=== PATIENT | male | born 1995 | race Caucasian/White ===

== ENCOUNTER 2016-04-14 17:30 | Inpatient (IN) | payer OTHER ==
[2016-04-14] VITALS (7 sets, daily range): BP systolic 150–169; BP diastolic 78–98; PULSE 53–87; RESP 16–26; TEMP 98.6; O2SAT 95–100
[~2016-04-14] VITALS: Ht 180.3 cm; Wt 95.9 kg
[2016-04-14] MEDS ORDERED: ONDANSETRON HCL 4 MG/2 ML VIAL IV PUSH ONE (17:45)
[2016-04-14] MEDS ORDERED: TETANUS/DIPHTHERIA TOXOID ADULT 0.5 ML VIAL IM ONE (17:45)
[2016-04-14] MEDS ORDERED: SODIUM CHLOR 0.9% 1000 ML INJ 1,000 ML IV SCH (17:45)
[2016-04-14] MEDS ORDERED: MORPHINE SULFATE 4 MG/ML INJ IV PUSH ONE (17:45)
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
[2016-04-14 17:55] LABS: AUTOMATED NEUTROPHIL # 9.8 TH/MM3 (1.8-7.7); BASOPHIL # 0.1 TH/MM3 (0-0.2); BASOPHIL % 0.8 % (0.0-2.0); EOSINOPHIL # 0.6 TH/MM3 (0-0.4); EOSINOPHIL % 3.3 % (0.0-4.0); LYMPH % 34.4 % (9.0-44.0); LYMPHOCYTE # 6.2 TH/MM3 (1.0-4.8); MEAN CELL VOLUME 87.9 FL (80.0-100.0); MEAN CORPUSCULAR HEMOGLOBIN 30.4 PG (27.0-34.0); MEAN CORPUSCULAR HGB CONC 34.5 % (32.0-36.0); MONO % 6.9 % (0.0-8.0); NEUT % 54.6 % (16.0-70.0); PLATELET COUNT 484 TH/MM3 (150-450); RED BLOOD COUNT 4.77 MIL/MM3 (4.50-5.90); RED CELL DISTRIBUTION WIDTH 13.8 % (11.6-17.2); WHITE BLOOD COUNT 17.9 TH/MM3 (4.0-11.0)
[2016-04-14 17:59] LABS: HEMO FLAGS AUTO DIFF
[2016-04-14 18:05] LABS: APTT (PATIENT) 22.6 SEC (24.3-30.1); INTERNATIONAL NORMALIZED RATIO 0.9 RATIO
[2016-04-14 18:13] LABS: BANDS 1 % (0-6); EOSINOPHILS 3 % (0-4); NEUTROPHIL # MANUAL DIFF 9.5 TH/MM3 (1.8-7.7); POLYS (SEG NEUTROPHILS) 52 % (16-70); WBC DIFF SAMPLE 100
[2016-04-14 18:14] LABS: ALKALINE PHOSPHATASE 104 U/L (45-117); ALT (GPT) 84 U/L (12-78); ANION GAP 14 MEQ/L (5-15); AST (GOT) 58 U/L (15-37); BICARBONATE 21.3 MEQ/L (21.0-32.0); BLOOD UREA NITROGEN 11 MG/DL (7-18); CHLORIDE 106 MEQ/L (98-107); GLOMERULAR FILTRATION RATE 89 ML/MIN (>89); PLATELET ESTIMATE SMEAR HIGH (NORMAL); PLATELET MORPHOLOGY NORMAL (NORMAL); POTASSIUM 3.1 MEQ/L (3.5-5.1); SCAN/DIFF FINAL DIFF MANUAL; SODIUM (NA) 141 MEQ/L (136-145); TOTAL BILIRUBIN ADULT 0.5 MG/DL (0.2-1.0)
[2016-04-14] MEDS ORDERED: POTASSIUM CHLOR 20 MEQ PREMIX 100 ML IV ONE (18:30)
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
[2016-04-14] MEDS ORDERED: LIDOCAINE 1%/EPINEPHrine 1:100,000 SOLN 20 ML VIAL INFIL ONE (20:00)
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
[2016-04-14] MEDS ORDERED: IOHEXOL 350 MG/ML 10 ML VIAL (for RAD DIAG) IV ONE (20:06)
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
[2016-04-14 20:20] LABS: BLOOD, URINE NEG (NEG); COMMENT (UR) CULT NOT INDICATED; CULTURE IF INDICATED CULT NOT INDICATED; GLUCOSE,URINE NEG (NEG); KETONE, URINE TRACE mg/dL (NEG); MUCUS URINE FEW /lpf (OCC); NITRITE,URINE NEG (NEG); URINE COLOR LIGHT-YELLOW (YELLW/STRAW)
--- NOTE | 2016-04-14 20:28 | PD ---
Physical Exam Time Seen by Provider: 20:00 Narrative I was asked by Dr. Storm to repair a laceration on this patient. Please see his note for further details. Data Data Last Documented VS Vital Signs Date Time Temp Pulse Resp B/P Pulse Ox O2 Delivery O2 Flow Rate FiO2 04/14/16 19:59 72 22 150/78 98 Nasal Cannula 2 04/14/16 17:35 98.6 Orders Complete Blood Count With Diff (04/14/16 17:38) Comprehensive Metabolic Panel (04/14/16 17:38) Prothrombin Time / Inr (Pt) (04/14/16 17:38) Act Partial Throm Time (Ptt) (04/14/16 17:38) Urinalysis - C+S If Indicated (04/14/16 17:38) Alcohol (Ethanol) (04/14/16 17:38) Drug Screen, Random Urine (04/14/16 17:38) Chest, Single Ap (04/14/16 17:38) Pelvis, Ap Only (Routine) (04/14/16 17:38) Iv Access Insert/Monitor (04/14/16 17:38) Ecg Monitoring (04/14/16 17:38) Oximetry (04/14/16 17:38) Ct Brain W/O Iv Contrast(Rout) (04/14/16 17:38) Ct Thorax/ Chest W Iv Contrast (04/14/16 17:38) Ct Abd/Pel W Iv Contrast(Rout) (04/14/16 17:38) Ct Cerv Spine W/O Contrast (04/14/16 17:38) Morphine Inj (Morphine Inj) (04/14/16 17:45) Ondansetron Inj (Zofran Inj) (04/14/16 17:45) Sodium Chlor 0.9% 1000 Ml Inj (Ns 1000 M (04/14/16 17:45) Tetanus/Diphtheria Tox Adult (Tetanus/Di (04/14/16 17:45) Ct Thor Spine W/O Contrast (04/14/16 18:10) Ct Lumb Spine W/O Contrast (04/14/16 18:10) Potassium Chlor 20 Meq Premix (Kcl 20 Me (04/14/16 18:30) Consult Neurosurgery (04/14/16 ) Lidocai-Epi 1%-1:100,000 Inj (Xylocaine- (04/14/16 20:00) Admit Order (Ed Use Only) (04/14/16 20:00) Labs Laboratory Tests Test 04/14/16 04/14/16 17:46 19:50 White Blood Count 17.9 TH/MM3 Red Blood Count 4.77 MIL/MM3 Hemoglobin 14.5 GM/DL Hematocrit 42.0 % Mean Corpuscular Volume 87.9 FL Mean Corpuscular Hemoglobin 30.4 PG Mean Corpuscular Hemoglobin 34.5 % Concent Red Cell Distribution Width 13.8 % Platelet Count 484 TH/MM3 Mean Platelet Volume 7.7 FL Neutrophils (%) (Auto) 54.6 % Lymphocytes (%) (Auto) 34.4 % Monocytes (%) (Auto) 6.9 % Eosinophils (%) (Auto) 3.3 % Basophils (%) (Auto) 0.8 % Neutrophils # (Auto) 9.8 TH/MM3 Lymphocytes # (Auto) 6.2 TH/MM3 Monocytes # (Auto) 1.2 TH/MM3 Eosinophils # (Auto) 0.6 TH/MM3 Basophils # (Auto) 0.1 TH/MM3 CBC Comment AUTO DIFF Differential Total Cells 100 Counted Neutrophils % (Manual) 52 % Band Neutrophils % 1 % Lymphocytes % 38 % Monocytes % 6 % Eosinophils % 3 % Neutrophils # (Manual) 9.5 TH/MM3 Differential Comment FINAL DIFF MANUAL Platelet Estimate HIGH Platelet Morphology Comment NORMAL Red Cell Morphology Comment NORMAL Prothrombin Time 10.0 SEC Prothromb Time International 0.9 RATIO Ratio Activated Partial 22.6 SEC Thromboplast Time Sodium Level 141 MEQ/L Potassium Level 3.1 MEQ/L Chloride Level 106 MEQ/L Carbon Dioxide Level 21.3 MEQ/L Anion Gap 14 MEQ/L Blood Urea Nitrogen 11 MG/DL Creatinine 1.04 MG/DL Estimat Glomerular Filtration 89 ML/MIN Rate Random Glucose 147 MG/DL Calcium Level 7.9 MG/DL Total Bilirubin 0.5 MG/DL Aspartate Amino Transf 58 U/L (AST/SGOT) Alanine Aminotransferase 84 U/L (ALT/SGPT) Alkaline Phosphatase 104 U/L Total Protein 7.6 GM/DL Albumin 3.6 GM/DL Ethyl Alcohol Level 58 MG/DL Urine Color LIGHT-YELLOW Urine Turbidity CLEAR Urine pH 5.0 Urine Specific [place] 1.034 Urine Protein TRACE mg/dL Urine Glucose (UA) NEG mg/dL Urine Ketones TRACE mg/dL Urine Occult Blood NEG Urine Nitrite NEG Urine Bilirubin NEG Urine Urobilinogen LESS THAN 2.0 MG/DL Urine Leukocyte Esterase NEG Urine WBC 1 /hpf Urine Mucus FEW /lpf Microscopic Urinalysis Comment CULT NOT INDICATED MDM Medical Record Reviewed: Yes Supervised Visit with FLACO: Yes Procedures Procedure Narrative LACERATION LOCATION: Left scalp LENGTH: 3 cm NUMBER OF STITCHES/ASHLEIGH: 3 simple interrupted REPAIR: The area of the laceration was prepped with Betadine and sterilely draped. The laceration was infiltrated with 1% lidocaine with epinephrine. The wound was copiously irrigated and explored without evidence of foreign body , tendon injury or neurovascular injury. The wound was closed using 4-0 Prolene. This was a single layer repair. A sterile dressing was applied. The patient was advised to keep the dressing clean and dry. Patient tolerated the procedure well. Diagnosis Primary Impression: Intracranial hemorrhage Additional Impressions: Multiple abrasions Injury of thoracic spine Qualified Code: S24.109A - Injury of thoracic spine, initial encounter Skull fracture Qualified Code: S02.0XXB - Open fracture of parietal bone, initial encounter Scalp laceration Qualified Code: S01.01XA - Scalp laceration, initial encounter Scripts No Active Prescriptions or Reported Meds Michelle Winslow Apr 14, 2016 20:28
[2016-04-14] MEDS ORDERED: SODIUM CHLORIDE 0.9% FLUSH 5 ML FLUSH IVF PRN (20:30)
[2016-04-14] MEDS ORDERED: PROMETHAZINE INJ 25 MG/ML VIAL IM PRN (20:30)
[2016-04-14] MEDS ORDERED: ONDANSETRON HCL 4 MG/2 ML VIAL IV PRN ×2 (20:30→23:15)
[2016-04-14] MEDS ORDERED: NALOXONE HCL 0.4 MG/ML AMP IV PRN (20:30)
[2016-04-14] MEDS ORDERED: SODIUM CHLORIDE 23.4% INJ 188 MEQ in SODIUM CHLOR 0.9% 1000 ML INJ 1,000 ML IV SCH (20:30)
[2016-04-14] MEDS ORDERED: SODIUM CHLORIDE 0.9% FLUSH 5 ML FLUSH IVF SCH (21:00)
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
[2016-04-14] MEDS: DOCUSATE SODIUM 100 MG CAP PO SCH (21:29)
[2016-04-14] MEDS: MORPHINE SULFATE 4 MG/ML INJ IV PRN (21:54)
[2016-04-14] MEDS: NS + KCL 20 MEQ INJ 1,000 ML IV SCH (22:52)
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
[2016-04-14] MEDS ORDERED: CHLORHEXIDINE GLUCONATE 2 % 1 PACK (2 CLOTHS) TOP PRN (23:15)
[2016-04-14] MEDS ORDERED: RESP: ALBUTEROL 2.5 MG/3 ML NEB (PRN) INH (23:15)
[2016-04-14] MEDS ORDERED: SODIUM CHLORIDE 0.9% FLUSH 5 ML FLUSH IV FLUSH PRN (23:15)
[2016-04-14] MEDS ORDERED: MISCELLANEOUS NURSING INFORMATION XX SCH (23:15)
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
[2016-04-15] VITALS (14 sets, daily range): BP systolic 130–155; BP diastolic 64–92; PULSE 48–81; RESP 14–27; TEMP 97.5–98.4; O2SAT 93–99
[2016-04-15] MEDS ORDERED: MORPHINE SULFATE 4 MG/ML INJ IV PUSH ONE
[2016-04-15 00:17] LABS: AMPHETAMINE, URINE NEG (NEG); BARBITURATES, URINE NEG (NEG); COCAINE, URINE NEG (NEG)
--- NOTE | 2016-04-15 00:38 | PD.PROCEDR ---
Central Line Procedure DATE: 04/15/16 CENTRAL LINE PLACEMENT: Right internal jugular vein. Ultrasound-guided INDICATION: Central venous access CONSENT Informed consent for procedure was obtained from patient's father after discussion of risks, benefits, alternatives by me. Signed consent is on the chart DESCRIPTION OF THE PROCEDURE The patient was placed in supine position, Trendelenburg. The skin was cleansed with Chloraprep 4. Additional barrier precautions included large sterile drape, sterile gloves, sterile gown, face mask, and hat. 1 % lidocaine was used for local anesthesia. Under direct ultrasound guidance and on single attempt, the vein was accessed with an introducer needle. The guide wire was advanced and the tract was dilated. Using Seldinger technique a 7 [place] 20 cm antimicrobial coated triple-lumen catheter was advanced to a depth of 18 centimeters. The guide wire was removed. All ports had good return of dark venous blood and flushed easily with saline. The central line was secured with 2.0 silk. A sterile dressing with antibiotic disc was applied. ESTIMATED BLOOD LOSS: Minimal COMPLICATIONS: No apparent complications. STAT chest x-ray is pending Deb Oliver MD Apr 15, 2016 00:38
--- NOTE | 2016-04-15 01:06 | RADRPT ---
EXAM DATE/TIME: 04/15/2016 00:56 [facility] COMPARISON: CT THORAX W CONTRAST, April 14, 2016, 18:40. CHEST SINGLE AP, April 14, 2016, 18:02. INDICATIONS : Central line placement. MEDICAL HISTORY : Unobtainable. SURGICAL HISTORY : Unobtainable. ENCOUNTER: Subsequent ACUITY: 1 day PAIN SCORE: Non-responsive. LOCATION: Bilateral chest FINDINGS: A single view of the chest demonstrates the lungs to be symmetrically aerated without evidence of mas s, infiltrate or effusion. The cardiomediastinal contours are unremarkable. Osseous structures are intact. Right jugular line tip overlies the expected location of the SVC. CONCLUSION: Right jugular line is noted as above. The lungs are clear. Henrry Santos MD on April 15, 2016 at 1:04 Board Certified Radiologist. This report was verified electronically.
[2016-04-15] MEDS: MORPHINE SULFATE 4 MG/ML INJ IV PRN ×4 (03:41→20:14)
[2016-04-15 04:29] LABS: AUTOMATED NEUTROPHIL # 23.6 TH/MM3 (1.8-7.7); BASOPHIL % 0.1 % (0.0-2.0); HEMATOCRIT 40.1 % (39.0-51.0); HEMO FLAGS DIFF FINAL; LYMPH % 3.2 % (9.0-44.0); LYMPHOCYTE # 0.8 TH/MM3 (1.0-4.8); MONO % 4.9 % (0.0-8.0); NEUT % 91.8 % (16.0-70.0); PLATELET COUNT 399 TH/MM3 (150-450); RED BLOOD COUNT 4.55 MIL/MM3 (4.50-5.90); RED CELL DISTRIBUTION WIDTH 13.5 % (11.6-17.2); WHITE BLOOD COUNT 25.8 TH/MM3 (4.0-11.0)
[2016-04-15] MEDS ORDERED: ATROPINE SULFATE 1 MG/10 ML SYRINGE ONE (04:29)
[2016-04-15] MEDS ORDERED: LIDOCAINE HCL 2% 100 MG/5 ML SYRINGE ONE (04:29)
[2016-04-15] MEDS ORDERED: EPINEPHrine HCL (1:10,000) 1 MG/10 ML SYRINGE ONE (04:29)
[2016-04-15 04:30] LABS: APTT (PATIENT) 23.4 SEC (24.3-30.1); PROTHROMBIN TIME - PATIENT 10.5 SEC (9.8-11.6)
[2016-04-15 04:55] LABS: BICARBONATE 22.8 MEQ/L (21.0-32.0); POTASSIUM 3.9 MEQ/L (3.5-5.1)
--- NOTE | 2016-04-15 05:00 | RADRPT ---
EXAM DATE/TIME: 04/15/2016 04:35 [facility] COMPARISON: CT BRAIN W/O CONTRAST, April 14, 2016, 18:33. INDICATIONS : Follow up bleed. RADIATION DOSE: 65.84 CTDIvol (mGy) MEDICAL HISTORY : None SURGICAL HISTORY : None. ENCOUNTER: Subsequent ACUITY: 1 day PAIN SCALE: Non-responsive LOCATION: cranial TECHNIQUE: Multiple contiguous axial images were obtained of the head. Using automated exposure control and adj ustment of the mA and/or kV according to patient size, radiation dose was kept as low as reasonably a chievable to obtain optimal diagnostic quality images. FINDINGS: There is left laceration, hematoma and edema again seen. There is a right sided subdural hematoma star ng the right cerebral convexity and with parenchymal contusion seen in the right temporal lobe anteri gloria as before. There is effacement of the cortical sulci on the right convexity. There is mild right to left shift of 3.6 mm on axial image 16. Fluid levels in the sphenoid sinuses are noted. I do not see a fracture. CONCLUSION: 1. Right sided subdural hemorrhage with midline shift and sulcal effacement. 2. Right temporal hemorrhagic contusion. Henrry Santos MD on April 15, 2016 at 4:56 Board Certified Radiologist. This report was verified electronically.
[2016-04-15] MEDS: CHLORHEXIDINE GLUCONATE 2 % 1 PACK (2 CLOTHS) TOP SCH (05:24)
[2016-04-15] MEDS: 3% SALINE INJ 500 ML IV SCH ×2 (06:35→18:04)
[2016-04-15] MEDS: SODIUM CHLORIDE 0.9% FLUSH 5 ML FLUSH IV FLUSH SCH ×2 (09:00→21:00)
[2016-04-15] MEDS: NS + KCL 20 MEQ INJ 1,000 ML IV SCH ×2 (09:50→23:10)
[2016-04-15] MEDS: DOCUSATE SODIUM 100 MG CAP PO SCH ×2 (10:27→20:14)
[2016-04-15] MEDS: ACETAMINOPHEN/HYDROcodone 325 MG/5 MG TAB PO PRN ×2 (10:27→18:01)
[2016-04-15] MEDS: PANTOPRAZOLE SOD 40 MG DELAYED RELEASE TAB PO SCH (10:27)
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
[2016-04-16] VITALS (12 sets, daily range): BP systolic 139–160; BP diastolic 56–98; PULSE 48–85; RESP 17–24; TEMP 97.7–98.7; O2SAT 98–100
[2016-04-16] MEDS: ACETAMINOPHEN/HYDROcodone 325 MG/5 MG TAB PO PRN ×3 (01:36→20:31)
[2016-04-16 03:33] LABS: BASOPHIL # 0.1 TH/MM3 (0-0.2); BASOPHIL % 0.4 % (0.0-2.0); HEMATOCRIT 34.6 % (39.0-51.0); HEMO FLAGS DIFF FINAL; LYMPH % 7.7 % (9.0-44.0); LYMPHOCYTE # 1.5 TH/MM3 (1.0-4.8); MEAN CELL VOLUME 87.6 FL (80.0-100.0); MEAN CORPUSCULAR HEMOGLOBIN 30.1 PG (27.0-34.0); MEAN CORPUSCULAR HGB CONC 34.4 % (32.0-36.0); MONO % 7.2 % (0.0-8.0); NEUT % 84.7 % (16.0-70.0); PLATELET COUNT 307 TH/MM3 (150-450); RED BLOOD COUNT 3.96 MIL/MM3 (4.50-5.90); RED CELL DISTRIBUTION WIDTH 13.7 % (11.6-17.2); WHITE BLOOD COUNT 20.1 TH/MM3 (4.0-11.0)
[2016-04-16 03:53] LABS: ALT (GPT) 63 U/L (12-78); ANION GAP 7 MEQ/L (5-15); AST (GOT) 48 U/L (15-37); BICARBONATE 25.7 MEQ/L (21.0-32.0); BLOOD UREA NITROGEN 5 MG/DL (7-18); CHLORIDE 105 MEQ/L (98-107); GLOMERULAR FILTRATION RATE 161 ML/MIN (>89); MAGNESIUM 2.1 MG/DL (1.5-2.5); POTASSIUM 3.8 MEQ/L (3.5-5.1); SODIUM (NA) 138 MEQ/L (136-145)
[2016-04-16 03:56] LABS: ALKALINE PHOSPHATASE 76 U/L (45-117); TOTAL BILIRUBIN ADULT 1.1 MG/DL (0.2-1.0)
[2016-04-16] MEDS: CHLORHEXIDINE GLUCONATE 2 % 1 PACK (2 CLOTHS) TOP SCH (04:00)
[2016-04-16] MEDS: PANTOPRAZOLE SOD 40 MG DELAYED RELEASE TAB PO SCH (08:12)
[2016-04-16] MEDS: DOCUSATE SODIUM 100 MG CAP PO SCH ×2 (08:12→20:31)
[2016-04-16] MEDS: 3% SALINE INJ 500 ML IV SCH ×2 (08:12→20:52)
[2016-04-16] MEDS: SODIUM CHLORIDE 0.9% FLUSH 5 ML FLUSH IV FLUSH SCH ×2 (08:13→20:31)
[2016-04-16] MEDS: NS + KCL 20 MEQ INJ 1,000 ML IV SCH (11:10)
[2016-04-16] MEDS: levETIRAcetam INJ 500 MG in SODIUM CHLORIDE 0.9% INJ 100 ML IV SCH ×2 (11:10→20:30)
[2016-04-16] MEDS: hydrALAZINE HCL 20 MG/ML VIAL IV PUSH PRN (18:21)
[2016-04-16] MEDS ORDERED: SODIUM CHLORIDE 23.4% INJ 240 MEQ in SYRINGE/BAG 1 EA IV ONE (19:00)
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
[2016-04-16] MEDS ORDERED: SODIUM CHLORIDE 23.4% INJ 240 MEQ in SYRINGE/BAG 1 EA IV PRN (19:30)
[2016-04-17] VITALS (12 sets, daily range): BP systolic 122–168; BP diastolic 74–93; PULSE 49–74; RESP 12–25; TEMP 97.8–98.9; O2SAT 96–100
[2016-04-17] MEDS: NS + KCL 20 MEQ INJ 1,000 ML IV SCH ×2 (01:44→21:57)
[2016-04-17] MEDS: ACETAMINOPHEN/HYDROcodone 325 MG/5 MG TAB PO PRN ×3 (01:44→12:12)
[2016-04-17] MEDS ORDERED: SODIUM CHLORIDE 23.4% INJ 188 MEQ in SODIUM CHLOR 0.9% 1000 ML INJ 1,000 ML IV SCH (03:15)
[2016-04-17] MEDS: CHLORHEXIDINE GLUCONATE 2 % 1 PACK (2 CLOTHS) TOP SCH (04:00)
--- NOTE | 2016-04-17 05:33 | RADRPT ---
EXAM DATE/TIME: 04/17/2016 05:04 [facility] COMPARISON: CT BRAIN W/O CONTRAST, April 15, 2016, 4:35. INDICATIONS : Evaluate intracranial hemorrhage RADIATION DOSE: 53.92 CTDIvol (mGy) MEDICAL HISTORY : None SURGICAL HISTORY : None. ENCOUNTER: Subsequent ACUITY: 4 - 6 days PAIN SCALE: 0/10 LOCATION: cranial TECHNIQUE: Multiple contiguous axial images were obtained of the head. Using automated exposure control and adj ustment of the mA and/or kV according to patient size, radiation dose was kept as low as reasonably a chievable to obtain optimal diagnostic quality images. FINDINGS: Left frontal scalp swelling and hematoma again seen. The right sided subdural hemorrhage is no signif icant change. Parenchymal hemorrhagic contusion in the right temporal lobe is noted with increase in surrounding edema on the current study. There is also hypo-density in the right parietal region with minimal adjacent parenchymal bleed of increased conspicuity today. There is mass effect on the right lateral ventricle, and shift from right to left of 5.5 mm on axial image 17. This is increased from p revious. There is effacement of the cortical sulci on the right, third ventricular effacement is seen . No fractures. CONCLUSION: Worsening edema and midline shift. Please see above. Henrry Santos MD on April 17, 2016 at 5:30 Board Certified Radiologist. This report was verified electronically.
[2016-04-17 05:43] LABS: HEMATOCRIT 34.6 % (39.0-51.0); MEAN CELL VOLUME 87.7 FL (80.0-100.0); MEAN CORPUSCULAR HGB CONC 35.4 % (32.0-36.0); PLATELET COUNT 358 TH/MM3 (150-450); RED BLOOD COUNT 3.95 MIL/MM3 (4.50-5.90); RED CELL DISTRIBUTION WIDTH 13.8 % (11.6-17.2); REVIEW FLAG FINAL; WHITE BLOOD COUNT 18.8 TH/MM3 (4.0-11.0)
[2016-04-17 06:10] LABS: BICARBONATE 24.2 MEQ/L (21.0-32.0); MAGNESIUM 2.5 MG/DL (1.5-2.5); POTASSIUM 3.6 MEQ/L (3.5-5.1)
[2016-04-17] MEDS: hydrALAZINE HCL 20 MG/ML VIAL IV PUSH PRN ×2 (07:00→12:12)
[2016-04-17] MEDS: PANTOPRAZOLE SOD 40 MG DELAYED RELEASE TAB PO SCH (07:49)
[2016-04-17] MEDS: DOCUSATE SODIUM 100 MG CAP PO SCH ×2 (07:49→21:13)
[2016-04-17] MEDS: SODIUM CHLORIDE 0.9% FLUSH 5 ML FLUSH IV FLUSH SCH ×2 (07:49→21:10)
[2016-04-17] MEDS: levETIRAcetam INJ 500 MG in SODIUM CHLORIDE 0.9% INJ 100 ML IV SCH ×2 (08:05→21:11)
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
[2016-04-17] MEDS: ACETAMINOPHEN 325 MG TAB PO PRN (21:11)
--- NOTE | 2016-04-17 21:45 | RADRPT ---
EXAM DATE/TIME: 04/17/2016 21:13 [facility] COMPARISON: CHEST SINGLE AP, April 15, 2016, 0:56. INDICATIONS : Left triple lumen placement. MEDICAL HISTORY : None. SURGICAL HISTORY : None. ENCOUNTER: Initial ACUITY: 3 days PAIN SCORE: Non-responsive. LOCATION: Bilateral chest FINDINGS: A single view of the chest demonstrates the lungs to be symmetrically aerated without evidence of mas s, infiltrate or effusion. The cardiomediastinal contours are unremarkable with left central line ti p in superior vena cava.. Osseous structures are intact. CONCLUSION: Left central line tip in superior vena cava. No focal infiltrate. No pneumothorax. Ayush Rivers MD on April 17, 2016 at 21:42 Board Certified Radiologist. This report was verified electronically.
[2016-04-17] MEDS: SODIUM CHLORIDE 23.4% INJ 240 MEQ in SYRINGE/BAG 1 EA IV SCH (21:56)
[2016-04-17] MEDS ORDERED: 3% SALINE INJ 500 ML IV SCH (22:15)
[2016-04-17] MEDS: FUROSEMIDE 20 MG/2 ML VIAL IV PUSH SCH (23:38)
[2016-04-17] MEDS: MANNITOL 12.5 GM/50 ML VIAL IV SCH (23:39)
[2016-04-18] VITALS (17 sets, daily range): BP systolic 135–184; BP diastolic 66–96; PULSE 64–106; RESP 12–18; TEMP 98.8–100.8; O2SAT 99–100
[2016-04-18 00:54] LABS: AUTOMATED NEUTROPHIL # 10.9 TH/MM3 (1.8-7.7); BASOPHIL # 0.1 TH/MM3 (0-0.2); BASOPHIL % 0.5 % (0.0-2.0); EOSINOPHIL % 0.1 % (0.0-4.0); HEMATOCRIT 34.8 % (39.0-51.0); HEMO FLAGS DIFF FINAL; LYMPH % 14.6 % (9.0-44.0); MEAN CELL VOLUME 86.9 FL (80.0-100.0); MEAN CORPUSCULAR HEMOGLOBIN 30.6 PG (27.0-34.0); MEAN CORPUSCULAR HGB CONC 35.2 % (32.0-36.0); MONO % 6.4 % (0.0-8.0); NEUT % 78.4 % (16.0-70.0); PLATELET COUNT 387 TH/MM3 (150-450); RED CELL DISTRIBUTION WIDTH 13.3 % (11.6-17.2); WHITE BLOOD COUNT 13.9 TH/MM3 (4.0-11.0)
[2016-04-18] MEDS ORDERED: LIDOCAINE HCL 2% 100 MG/5 ML SYRINGE ONE (00:55)
[2016-04-18] MEDS ORDERED: ATROPINE SULFATE 1 MG/10 ML SYRINGE ONE (00:55)
[2016-04-18] MEDS ORDERED: EPINEPHrine HCL (1:10,000) 1 MG/10 ML SYRINGE ONE (00:55)
[2016-04-18 01:02] LABS: BICARBONATE 25.2 MEQ/L (21.0-32.0); POTASSIUM 3.6 MEQ/L (3.5-5.1)
[2016-04-18] MEDS ORDERED: GENTAMICIN SULFATE 80 MG/2 ML VIAL ONE (01:03)
[2016-04-18] MEDS ORDERED: THROMBIN (TOPICAL) 5,000 UNIT VIAL ONE (01:03)
[2016-04-18] MEDS ORDERED: GELFOAM SIZE 100 ONE (01:03)
[2016-04-18] MEDS ORDERED: LIDOCAINE 1%/EPINEPHrine 1:100,000 SOLN 20 ML VIAL ONE (01:03)
[2016-04-18 01:04] LABS: PROTHROMBIN TIME - PATIENT 10.6 SEC (9.8-11.6)
[2016-04-18] MEDS ORDERED: fentaNYL CITRATE 250 MCG/5 ML AMP ONE ×2 (03:58→03:59)
[2016-04-18] MEDS ORDERED: PROPOFOL 1000 MG/100 ML INJ 100 ML IV SCH (04:00)
--- NOTE | 2016-04-18 04:01 | PD.OP ---
Operative Report Date of Surgery: Apr 18, 2016 Preoperative Diagnosis: (1) Acute subdural hematoma (2) TBI (traumatic brain injury) Postoperative Diagnosis: (1) Acute subdural hematoma (2) TBI (traumatic brain injury) Procedure: 1. Right frontotemporoparietal decompressive craniotomy, evacuation acute subdural hematoma 2. Right frontal ventriculostomy placement Anesthesia: Gen. endotracheal Surgeon: Darni Zamudio Compliance Administrator(s): Catrina Ingram Operation and Findings: Findings: Moderate diffuse right hemisphere subacute subdural hematoma. Moderate cerebral edema. Focal area of contusion right temporal lobe without active bleeding. The patient was brought into the operating room and general endotracheal anesthesia induced without difficulty. The Robles catheter, and sequential compression devices were in place. The lines were established per anesthesia. The patient was placed in semilateral position on the 3080 table with the head on the horseshoe headrest. All extremities were appropriately padded Appropriate timeout procedure was performed with all personnel present and in agreement The right side of the head was shaved with the clippers and sterilely prepped and draped 1% Xylocaine was used for local infiltration over the incision site which was made over the right frontotemporoparietal area in a curvilinear fashion and carried sharply down to the cranium through the temporalis muscle and fascia. The scalp and temporalis muscle flap were elevated in a single laye with the periosteal elevator and retracted r over a laparotomy sponge with the large scalp hooks. The field underwriter was used to place a single bur hole in the posterior left frontoparietal region and the craniotome was used since to incise the bone flap. The dura was moderately tense upon removal of the bone flap. The dura was opened in a cruciate fashion and the edges retracted with 4-0 Nurolon suture. The moderate underlying subdural hematoma was evacuated with gentle suction and irrigation until clear The bipolar forceps were used to control any bleeding at the operative site. There was evidence of persistent moderate cerebral edema and the brain was bulging slightly beyond the edge dura at the the craniotomy site. It was elected to leave the bone flap out and the dura opened to allow for cerebral edema. A 7 mm flat fluted drain was left in place in the subdural space The drain was brought out through incisions in the posterior parietal region and secured to the skin with nylon suture A small cortical incision was made with the bipolar approximately 10 cm above the supraorbital rim and 4 cm lateral to the midline at the right frontal region. The Codman ventricular catheter was placed to a depth of approximately 6 cm into the ventricle with good return of clear colorless cerebrospinal fluid. The catheter was tunneled to the left frontal region, secured to the skin with nylon suture. The closure was performed with 0 Vicryl for the temporalis muscle fascia and galeal closure and wang for the skin closure. A dressing of sterile Telfa, 4 x 4's, and a loose head stockinette was applied. The patient was taken to recovery room in stable condition All counts were correct at the end of the case. Estimated blood loss was 100 cc No specimen was sent to pathology Darin Zamudio MD Apr 18, 2016 04:01
[2016-04-18] MEDS: hydrALAZINE HCL 20 MG/ML VIAL IV PUSH PRN ×2 (04:15→14:48)
[2016-04-18] MEDS ORDERED: METOPROLOL TARTRATE 5 MG/5 ML VIAL ONE (04:37)
[2016-04-18] MEDS: ACETAMINOPHEN/HYDROcodone 325 MG/5 MG TAB PO PRN (04:54)
[2016-04-18 05:05] LABS: HEMATOCRIT 35.9 % (39.0-51.0); MEAN CORPUSCULAR HEMOGLOBIN 30.2 PG (27.0-34.0); MEAN CORPUSCULAR HGB CONC 34.3 % (32.0-36.0); PLATELET COUNT 397 TH/MM3 (150-450); RED BLOOD COUNT 4.09 MIL/MM3 (4.50-5.90); RED CELL DISTRIBUTION WIDTH 13.5 % (11.6-17.2); REVIEW FLAG FINAL; WHITE BLOOD COUNT 13.6 TH/MM3 (4.0-11.0)
[2016-04-18] MEDS ORDERED: 2% NS 1000 ML IV SCH ×2 (05:15)
[2016-04-18] MEDS: METOPROLOL TARTRATE 5 MG/5 ML VIAL IV PUSH SCH ×4 (05:17→23:37)
[2016-04-18] MEDS: CHLORHEXIDINE GLUCONATE 2 % 1 PACK (2 CLOTHS) TOP SCH (05:17)
[2016-04-18 05:18] LABS: BICARBONATE 24.6 MEQ/L (21.0-32.0); MAGNESIUM 2.3 MG/DL (1.5-2.5); POTASSIUM 3.3 MEQ/L (3.5-5.1)
[2016-04-18] MEDS: SODIUM CHLORIDE 23.4% INJ 240 MEQ in SYRINGE/BAG 1 EA IV SCH ×3 (05:19→16:00)
[2016-04-18 05:29] LABS: BLOOD GAS BASE EXCESS -0.3 mmol/L (-2-2); BLOOD GAS CARBOXYHEMOGLOBIN 0.9 % (0-4); BLOOD GAS HCO3 24 mmol/L (22-26); BLOOD GAS METHEMOGLOBIN 0.8 % (0-2); BLOOD GAS O2 HGB SATURATION 98 % (90-100); BLOOD GAS OXYGEN CONTENT 17.8 Vol % (12.0-20.0); BLOOD GAS PCO2 39 mmHg (38-42); BLOOD GAS PO2 411 mmHg (61-120); BLOOD GAS TOTAL HGB 12.1 G/DL (12.0-16.0); CRITICAL VALUE NO; OXYGEN DEVICE VENTILATOR; TEMP CORR TO 98.6
[2016-04-18 05:30] LABS: DRAW SITE ALINE; FIO2 90 %; STAT NO; VENT SETTINGS AC/12/600/PEEP5
[2016-04-18] MEDS: PROPOFOL 1000 MG/100 ML INJ 100 ML IV SCH ×7 (05:57→22:24)
[2016-04-18] MEDS: FUROSEMIDE 20 MG/2 ML VIAL IV PUSH SCH ×3 (06:00→17:40)
--- NOTE | 2016-04-18 06:20 | RADRPT ---
EXAM DATE/TIME: 04/18/2016 05:36 [facility] COMPARISON: CHEST SINGLE AP, April 17, 2016, 21:13. INDICATIONS : Post intubation MEDICAL HISTORY : None. SURGICAL HISTORY : None. ENCOUNTER: Initial ACUITY: 1 day PAIN SCORE: Non-responsive. LOCATION: Bilateral chest FINDINGS: Patchy left lower lobe airspace disease and cardiomegaly. Endotracheal tube, left subclavian line and NG tube are noted. The side-port of the NG tube is at the esophagogastric junction. It should be adv anced. CONCLUSION: Left lower lobe airspace disease. NG tube should be advanced. Henrry Santos MD on April 18, 2016 at 6:18 Board Certified Radiologist. This report was verified electronically.
[2016-04-18] MEDS: MANNITOL 12.5 GM/50 ML VIAL IV SCH ×3 (07:04→17:40)
[2016-04-18] MEDS: DOCUSATE SODIUM 100 MG CAP PO SCH ×2 (08:35→21:59)
[2016-04-18] MEDS: SODIUM CHLORIDE 0.9% FLUSH 5 ML FLUSH IVF SCH ×2 (08:35→20:11)
[2016-04-18] MEDS: levETIRAcetam INJ 500 MG in SODIUM CHLORIDE 0.9% INJ 100 ML IV SCH ×2 (08:35→20:11)
[2016-04-18] MEDS: PANTOPRAZOLE SOD 40 MG DELAYED RELEASE TAB PO SCH (08:35)
[2016-04-18] MEDS ORDERED: MAGNESIUM OXIDE 400 MG TAB PO PRN (10:30)
[2016-04-18] MEDS ORDERED: POTASSIUM PHOSPHATE MONOBASIC 500 MG TAB PO PRN (10:30)
[2016-04-18] MEDS ORDERED: POTASSIUM PHOSPHATE INJ 30 MMOL in SODIUM CHLOR 0.9% 250 ML INJ 250 ML IV PRN (10:30)
[2016-04-18] MEDS ORDERED: MAGNESIUM SULFATE INJ 2 GM in SODIUM CHLORIDE 0.9% INJ 96 ML IV PRN (10:30)
[2016-04-18] MEDS ORDERED: POTASSIUM CHLOR 20 MEQ PREMIX 100 ML IV PRN ×2 (10:30)
[2016-04-18] MEDS ORDERED: POTASSIUM CL 40 MEQ/30 ML LIQ UDC PO/TUBE PRN ×2 (10:30)
[2016-04-18] MEDS ORDERED: POTASSIUM PHOSPHATE MONOBASIC 500 MG TAB PO/TUBE PRN (10:30)
[2016-04-18] MEDS ORDERED: SODIUM PHOSPHATE INJ 30 MMOL in SODIUM CHLOR 0.9% 250 ML INJ 240 ML IV PRN (10:30)
[2016-04-18] MEDS ORDERED: MAGNESIUM SULFATE INJ 4 GM in SODIUM CHLORIDE 0.9% INJ 92 ML IV PRN (10:30)
[2016-04-18] MEDS: POTASSIUM CHLOR 40 MEQ PREMIX 100 ML IV PRN (11:31)
[2016-04-18] MEDS: PANTOPRAZOLE SODIUM 40 MG VIAL IV PUSH SCH (11:31)
[2016-04-18] MEDS ORDERED: PROPOFOL 200 MG/20 ML AMP IV ONE (12:00)
[2016-04-18] MEDS ORDERED: ceFAZolin INJ 1,000 MG VIAL IV ONE (12:00)
[2016-04-18] MEDS ORDERED: PHENYLEPH/NS 1000 MCG/10 ML SYR IV ONE (12:00)
[2016-04-18] MEDS ORDERED: LACTATED RINGER'S 1000 ML INJ 1,000 ML IV ONE (12:00)
[2016-04-18] MEDS: 3% SALINE INJ 500 ML IV SCH (15:33)
[2016-04-18 17:25] LABS: MAGNESIUM 2.5 MG/DL (1.5-2.5)
[2016-04-18] MEDS: fentaNYL DRIP 250 ML IV SCH (18:59)
[2016-04-18] MEDS: NS + KCL 20 MEQ INJ 1,000 ML IV SCH (18:59)
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
[2016-04-19] VITALS (20 sets, daily range): BP systolic 116–148; BP diastolic 63–78; PULSE 73–106; RESP 12–16; TEMP 98.4–100.4; O2SAT 98–100
[2016-04-19] MEDS: 3% SALINE INJ 500 ML IV SCH ×2 (01:40→16:16)
[2016-04-19] MEDS: PROPOFOL 1000 MG/100 ML INJ 100 ML IV SCH ×7 (01:43→21:58)
[2016-04-19] MEDS ORDERED: LIDOCAINE HCL 2% 100 MG/5 ML SYRINGE ONE (03:48)
[2016-04-19] MEDS ORDERED: ATROPINE SULFATE 1 MG/10 ML SYRINGE ONE (03:48)
[2016-04-19] MEDS ORDERED: EPINEPHrine HCL (1:10,000) 1 MG/10 ML SYRINGE ONE (03:48)
[2016-04-19] MEDS: METOPROLOL TARTRATE 5 MG/5 ML VIAL IV PUSH SCH ×4 (05:00→23:10)
[2016-04-19 05:29] LABS: BLOOD GAS BASE EXCESS -0.9 mmol/L (-2-2); BLOOD GAS HCO3 24 mmol/L (22-26); BLOOD GAS METHEMOGLOBIN 0.9 % (0-2); BLOOD GAS O2 HGB SATURATION 97 % (90-100); BLOOD GAS OXYGEN CONTENT 16.6 Vol % (12.0-20.0); BLOOD GAS PCO2 47 mmHg (38-42); BLOOD GAS PO2 119 mmHg (61-120); BLOOD GAS TOTAL HGB 12.1 G/DL (12.0-16.0); CRITICAL VALUE NO; DRAW SITE ART LINE; FIO2 35 %; OXYGEN DEVICE VENTILATOR; STAT NO; TEMP CORR TO 98.6; VENT SETTINGS AC 12/600/PEEP5
[2016-04-19] MEDS: CHLORHEXIDINE GLUCONATE 2 % 1 PACK (2 CLOTHS) TOP SCH (05:43)
[2016-04-19] MEDS: fentaNYL DRIP 250 ML IV SCH ×2 (05:43→15:21)
--- NOTE | 2016-04-19 06:04 | RADRPT ---
EXAM DATE/TIME: 04/19/2016 04:40 [facility] COMPARISON: CT BRAIN W/O CONTRAST, April 17, 2016, 5:04. INDICATIONS : Follow up right subdural hematoma. RADIATION DOSE: 60.50 CTDIvol (mGy) MEDICAL HISTORY : None SURGICAL HISTORY : None. ENCOUNTER: Initial ACUITY: 4 - 6 days PAIN SCALE: Non-responsive LOCATION: Right cranial TECHNIQUE: Multiple contiguous axial images were obtained of the head. Using automated exposure control and adj ustment of the mA and/or kV according to patient size, radiation dose was kept as low as reasonably a chievable to obtain optimal diagnostic quality images. FINDINGS: Interim right subdural evacuation with craniotomy defect. A ventriculostomy catheter is also been irving soila. There is swelling of the right cerebral hemisphere. Decreased midline shift, currently about 3 m m. No ventriculomegaly. Parenchymal hemorrhage of the right temporal lobe is similar to before. No mass lesion seen. No evidence of an acute ischemic event. CONCLUSION: 1. Interim right subdural drainage and ventriculostomy catheter placement. 2. Decreased leftward midline shift, currently about 3 mm. 3. No significant change of the small parenchymal contusion of the right temporal lobe. 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 MD on April 19, 2016 at 6:01 Board Certified Radiologist. This report was verified electronically.
--- NOTE | 2016-04-19 08:27 | RADRPT ---
EXAM DATE/TIME: 04/19/2016 05:21 [facility] COMPARISON: CHEST SINGLE AP, April 18, 2016, 5:36. INDICATIONS : Shortness of breath. MEDICAL HISTORY : None. SURGICAL HISTORY : None. ENCOUNTER: Subsequent ACUITY: 4 - 6 days PAIN SCORE: Non-responsive. LOCATION: Bilateral chest FINDINGS: Mild consolidation and small effusion again seen left lung base, not significantly changed. Right joel g remains reasonably clear. I don't see a pneumothorax on either side. Heart size stable, upper limits of normal. Endotracheal tube tip is about 3 cm above the da. There is a nasogastric tube with tip in the upp er stomach, sidehole near or slightly above the GE junction. Left subclavian central venous catheter remains in place, tip in the superior vena cava. CONCLUSION: No significant change. 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 MD on April 19, 2016 at 6:11 Board Certified Radiologist. This report was verified electronically.
[2016-04-19 08:54] LABS: HEMATOCRIT 33.7 % (39.0-51.0); MEAN CELL VOLUME 89.1 FL (80.0-100.0); MEAN CORPUSCULAR HEMOGLOBIN 30.4 PG (27.0-34.0); MEAN CORPUSCULAR HGB CONC 34.1 % (32.0-36.0); PLATELET COUNT 371 TH/MM3 (150-450); RED BLOOD COUNT 3.78 MIL/MM3 (4.50-5.90); RED CELL DISTRIBUTION WIDTH 14.1 % (11.6-17.2); REVIEW FLAG FINAL; WHITE BLOOD COUNT 12.2 TH/MM3 (4.0-11.0)
[2016-04-19] MEDS: SODIUM CHLORIDE 0.9% FLUSH 5 ML FLUSH IVF SCH ×2 (09:00→20:16)
[2016-04-19] MEDS: DOCUSATE SODIUM 100 MG CAP PO SCH ×2 (09:00→20:14)
[2016-04-19] MEDS: levETIRAcetam INJ 500 MG in SODIUM CHLORIDE 0.9% INJ 100 ML IV SCH ×2 (09:15→20:14)
[2016-04-19] MEDS: PANTOPRAZOLE SODIUM 40 MG VIAL IV PUSH SCH (09:15)
[2016-04-19 09:21] LABS: ALKALINE PHOSPHATASE 92 U/L (45-117); ALT (GPT) 83 U/L (12-78); ANION GAP 6 MEQ/L (5-15); AST (GOT) 26 U/L (15-37); BICARBONATE 26.6 MEQ/L (21.0-32.0); BLOOD UREA NITROGEN 9 MG/DL (7-18); CHLORIDE 117 MEQ/L (98-107); GLOMERULAR FILTRATION RATE 140 ML/MIN (>89); POTASSIUM 3.7 MEQ/L (3.5-5.1); SODIUM (NA) 150 MEQ/L (136-145); TOTAL BILIRUBIN ADULT 1.1 MG/DL (0.2-1.0)
[2016-04-19 10:45] LABS: MAGNESIUM 2.4 MG/DL (1.5-2.5)
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
[2016-04-19] MEDS: NS + KCL 20 MEQ INJ 1,000 ML IV SCH (16:49)
[2016-04-20] VITALS (18 sets, daily range): BP systolic 108–159; BP diastolic 55–86; PULSE 78–102; RESP 16; TEMP 98.3–100.1; O2SAT 98–100
[2016-04-20] MEDS: hydrALAZINE HCL 20 MG/ML VIAL IV PUSH PRN (00:57)
[2016-04-20] MEDS: fentaNYL DRIP 250 ML IV SCH ×2 (01:07→11:07)
[2016-04-20] MEDS: PROPOFOL 1000 MG/100 ML INJ 100 ML IV SCH ×9 (01:46→22:20)
[2016-04-20] MEDS ORDERED: MANNITOL 12.5 GM/50 ML VIAL IV ONE (02:45)
[2016-04-20 03:19] LABS: HEMATOCRIT 33.3 % (39.0-51.0); MEAN CELL VOLUME 88.8 FL (80.0-100.0); MEAN CORPUSCULAR HEMOGLOBIN 29.8 PG (27.0-34.0); MEAN CORPUSCULAR HGB CONC 33.5 % (32.0-36.0); PLATELET COUNT 396 TH/MM3 (150-450); RED BLOOD COUNT 3.74 MIL/MM3 (4.50-5.90); RED CELL DISTRIBUTION WIDTH 14.2 % (11.6-17.2); REVIEW FLAG FINAL; WHITE BLOOD COUNT 12.4 TH/MM3 (4.0-11.0)
[2016-04-20 03:32] LABS: BICARBONATE 26.2 MEQ/L (21.0-32.0); MAGNESIUM 2.1 MG/DL (1.5-2.5); POTASSIUM 3.4 MEQ/L (3.5-5.1)
[2016-04-20] MEDS: METOPROLOL TARTRATE 5 MG/5 ML VIAL IV PUSH SCH (04:46)
[2016-04-20] MEDS: CHLORHEXIDINE GLUCONATE 2 % 1 PACK (2 CLOTHS) TOP SCH ×2 (04:47→20:41)
--- NOTE | 2016-04-20 05:22 | RADRPT ---
EXAM DATE/TIME: 04/20/2016 04:45 [facility] COMPARISON: CHEST SINGLE AP, April 19, 2016, 5:21. INDICATIONS : Shortness of breath. MEDICAL HISTORY : None. SURGICAL HISTORY : None. ENCOUNTER: Subsequent ACUITY: 1 week PAIN SCORE: Non-responsive. LOCATION: Bilateral chest FINDINGS: Trace consolidation/effusion again seen left lung base, not significantly changed. Right lung remains reasonably clear. Heart size stable, upper limits of normal.Endotracheal tube tip is about 4 cm abov e the da. There is a nasogastric tube with tip in the stomach, sidehole near the GE junction. CONCLUSION: No significant change. 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 MD on April 20, 2016 at 5:20 Board Certified Radiologist. This report was verified electronically.
[2016-04-20] MEDS: 3% SALINE INJ 500 ML IV SCH ×2 (05:52→17:57)
[2016-04-20 05:54] LABS: BLOOD GAS BASE EXCESS -0.3 mmol/L (-2-2); BLOOD GAS HCO3 24 mmol/L (22-26); BLOOD GAS METHEMOGLOBIN 0.9 % (0-2); BLOOD GAS O2 HGB SATURATION 97 % (90-100); BLOOD GAS OXYGEN CONTENT 15.4 Vol % (12.0-20.0); BLOOD GAS PCO2 38 mmHg (38-42); BLOOD GAS PO2 137 mmHg (61-120); BLOOD GAS TOTAL HGB 11.1 G/DL (12.0-16.0); CRITICAL VALUE NO; FIO2 35 %; OXYGEN DEVICE VENTILATOR; TEMP CORR TO 98.6; VENT SETTINGS AC/16/600/PEEP 5
[2016-04-20 05:55] LABS: DRAW SITE RT RADIAL; NUMBER OF ARTERIAL PUNCTURES 1; STAT NO; ULNAR PULSE PRESENT
[2016-04-20] MEDS: MIDAZOLAM 100 MG/NS 100 ML DRIP Premix IV SCH (07:37)
[2016-04-20] MEDS ORDERED: RESP: ALBUTEROL 2.5 MG/IPRATROPIUM 0.5 MG NEB (PRN) NEB (09:45)
[2016-04-20] MEDS: PANTOPRAZOLE SODIUM 40 MG VIAL IV PUSH SCH (09:47)
[2016-04-20] MEDS: SODIUM CHLORIDE 0.9% FLUSH 5 ML FLUSH IVF SCH ×2 (09:48→20:41)
[2016-04-20] MEDS: levETIRAcetam INJ 500 MG in SODIUM CHLORIDE 0.9% INJ 100 ML IV SCH ×2 (09:48→20:40)
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
[2016-04-20] MEDS: LACTULOSE SYRUP 20 GM/30 ML CUP PO SCH (11:17)
[2016-04-20] MEDS: DOCUSATE SODIUM 50 MG/SENNA 8.6 MG TAB PO SCH ×2 (11:17→20:41)
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
[2016-04-20] MEDS ORDERED: PANTOPRAZOLE SODIUM 40 MG VIAL IV PUSH SCH (13:00)
[2016-04-20] MEDS: ENOXAPARIN SODIUM 40 MG/0.4 ML SYRINGE SQ SCH (14:54)
[2016-04-21] VITALS (21 sets, daily range): BP systolic 128–168; BP diastolic 61–86; PULSE 84–100; RESP 16–24; TEMP 98.8–100.4; O2SAT 97–100
[2016-04-21] MEDS: fentaNYL DRIP 250 ML IV SCH ×2 (01:30→18:05)
[2016-04-21] MEDS: PROPOFOL 1000 MG/100 ML INJ 100 ML IV SCH ×7 (01:57→21:14)
[2016-04-21 03:25] LABS: HEMATOCRIT 31.1 % (39.0-51.0); MEAN CELL VOLUME 89.3 FL (80.0-100.0); MEAN CORPUSCULAR HEMOGLOBIN 30.7 PG (27.0-34.0); MEAN CORPUSCULAR HGB CONC 34.4 % (32.0-36.0); PLATELET COUNT 406 TH/MM3 (150-450); RED BLOOD COUNT 3.48 MIL/MM3 (4.50-5.90); RED CELL DISTRIBUTION WIDTH 14.3 % (11.6-17.2); REVIEW FLAG FINAL; WHITE BLOOD COUNT 9.8 TH/MM3 (4.0-11.0)
[2016-04-21 04:04] LABS: BICARBONATE 25.7 MEQ/L (21.0-32.0); POTASSIUM 3.7 MEQ/L (3.5-5.1)
[2016-04-21] MEDS: 3% SALINE INJ 500 ML IV SCH ×2 (05:30→17:59)
[2016-04-21] MEDS: MIDAZOLAM 100 MG/NS 100 ML DRIP Premix IV SCH (05:31)
[2016-04-21 05:44] LABS: BLOOD GAS BASE EXCESS 0.1 mmol/L (-2-2); BLOOD GAS CARBOXYHEMOGLOBIN 1.1 % (0-4); BLOOD GAS HCO3 24 mmol/L (22-26); BLOOD GAS METHEMOGLOBIN 0.8 % (0-2); BLOOD GAS O2 HGB SATURATION 97 % (90-100); BLOOD GAS PCO2 39 mmHg (38-42); BLOOD GAS PO2 120 mmHg (61-120); BLOOD GAS TOTAL HGB 10.9 G/DL (12.0-16.0); TEMP CORR TO 98.6
[2016-04-21 05:45] LABS: CRITICAL VALUE NO; DRAW SITE RT RADIAL; FIO2 35 %; NUMBER OF ARTERIAL PUNCTURES 1; OXYGEN DEVICE VENTILATOR; STAT NO; ULNAR PULSE PRESENT; VENT SETTINGS AC/16/600/35%/PEEP5
[2016-04-21] MEDS: levETIRAcetam INJ 500 MG in SODIUM CHLORIDE 0.9% INJ 100 ML IV SCH ×2 (09:19→20:24)
[2016-04-21] MEDS: SODIUM CHLORIDE 0.9% FLUSH 5 ML FLUSH IVF SCH ×2 (09:19→20:24)
[2016-04-21] MEDS: LACTULOSE SYRUP 20 GM/30 ML CUP PO SCH (09:19)
[2016-04-21] MEDS: DOCUSATE SODIUM 50 MG/SENNA 8.6 MG TAB PO SCH ×2 (09:19→20:24)
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
[2016-04-21] MEDS: METOCLOPRAMIDE HCL 10 MG/2 ML VIAL IV PUSH SCH ×3 (11:19→21:14)
[2016-04-21] MEDS: ENOXAPARIN SODIUM 40 MG/0.4 ML SYRINGE SQ SCH (11:20)
[2016-04-21] MEDS: PANTOPRAZOLE SODIUM 40 MG VIAL IV PUSH SCH (11:20)
[2016-04-21 12:24] LABS: BLOOD GAS BASE EXCESS 0.8 mmol/L (-2-2); BLOOD GAS CARBOXYHEMOGLOBIN 0.8 % (0-4); BLOOD GAS HCO3 26 mmol/L (22-26); BLOOD GAS METHEMOGLOBIN 0.8 % (0-2); BLOOD GAS O2 HGB SATURATION 97 % (90-100); BLOOD GAS OXYGEN CONTENT 15.3 Vol % (12.0-20.0); BLOOD GAS PCO2 47 mmHg (38-42); BLOOD GAS PO2 123 mmHg (61-120); BLOOD GAS TOTAL HGB 11.1 G/DL (12.0-16.0); CRITICAL VALUE NO; OXYGEN DEVICE VENTILATOR; TEMP CORR TO 98.6
[2016-04-21 12:25] LABS: DRAW SITE LT RADIAL; FIO2 35 %; NUMBER OF ARTERIAL PUNCTURES 1; STAT NO; ULNAR PULSE PRESENT
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
[2016-04-21] MEDS: BISACODYL 10 MG SUPP RECTAL SCH (17:41)
[2016-04-21] MEDS: CHLORHEXIDINE GLUCONATE 2 % 1 PACK (2 CLOTHS) TOP SCH (20:28)
[2016-04-22] VITALS (18 sets, daily range): BP systolic 134–152; BP diastolic 65–87; PULSE 87–100; RESP 22–24; TEMP 99.5–100.7; O2SAT 97–100
[2016-04-22] MEDS: PROPOFOL 1000 MG/100 ML INJ 100 ML IV SCH ×8 (00:45→23:01)
[2016-04-22] MEDS ORDERED: LIDOCAINE HCL 2% 100 MG/5 ML SYRINGE ONE (03:55)
[2016-04-22] MEDS ORDERED: ATROPINE SULFATE 1 MG/10 ML SYRINGE ONE (03:55)
[2016-04-22] MEDS ORDERED: EPINEPHrine HCL (1:10,000) 1 MG/10 ML SYRINGE ONE (03:55)
[2016-04-22 05:37] LABS: HEMATOCRIT 30.7 % (39.0-51.0); MEAN CELL VOLUME 88.8 FL (80.0-100.0); MEAN CORPUSCULAR HEMOGLOBIN 29.9 PG (27.0-34.0); MEAN CORPUSCULAR HGB CONC 33.6 % (32.0-36.0); PLATELET COUNT 461 TH/MM3 (150-450); RED BLOOD COUNT 3.45 MIL/MM3 (4.50-5.90); RED CELL DISTRIBUTION WIDTH 14.2 % (11.6-17.2); REVIEW FLAG FINAL; WHITE BLOOD COUNT 11.7 TH/MM3 (4.0-11.0)
[2016-04-22 05:38] LABS: BLOOD GAS BASE EXCESS -0.6 mmol/L (-2-2); BLOOD GAS HCO3 23 mmol/L (22-26); BLOOD GAS METHEMOGLOBIN 0.7 % (0-2); BLOOD GAS O2 HGB SATURATION 97 % (90-100); BLOOD GAS OXYGEN CONTENT 14.4 Vol % (12.0-20.0); BLOOD GAS PCO2 33 mmHg (38-42); BLOOD GAS PO2 116 mmHg (61-120); BLOOD GAS TOTAL HGB 10.4 G/DL (12.0-16.0); TEMP CORR TO 98.6
[2016-04-22 05:39] LABS: CRITICAL VALUE NO; OXYGEN DEVICE VENTILATOR
[2016-04-22 05:40] LABS: DRAW SITE RT RADIAL; FIO2 35 %; NUMBER OF ARTERIAL PUNCTURES 1; STAT NO; ULNAR PULSE PRESENT; VENT SETTINGS AC/22/600/35%/PEEP5
[2016-04-22] MEDS: METOCLOPRAMIDE HCL 10 MG/2 ML VIAL IV PUSH SCH ×3 (06:04→22:40)
[2016-04-22] MEDS: 3% SALINE INJ 500 ML IV SCH ×2 (06:04→20:32)
[2016-04-22 06:23] LABS: POTASSIUM 3.6 MEQ/L (3.5-5.1)
[2016-04-22] MEDS: LACTULOSE SYRUP 20 GM/30 ML CUP PO SCH (09:00)
[2016-04-22] MEDS: MIDAZOLAM 100 MG/NS 100 ML DRIP Premix IV SCH (09:44)
[2016-04-22] MEDS: SODIUM CHLORIDE 0.9% FLUSH 5 ML FLUSH IVF SCH ×2 (09:44→20:33)
[2016-04-22] MEDS: levETIRAcetam INJ 500 MG in SODIUM CHLORIDE 0.9% INJ 100 ML IV SCH ×2 (09:44→20:31)
[2016-04-22] MEDS: BISACODYL 10 MG SUPP RECTAL SCH (09:58)
[2016-04-22] MEDS: DOCUSATE SODIUM 50 MG/SENNA 8.6 MG TAB PO SCH ×2 (09:59→20:33)
[2016-04-22] MEDS: ACETAMINOPHEN/HYDROcodone 325 MG/5 MG TAB PO PRN (11:32)
[2016-04-22] MEDS: ENOXAPARIN SODIUM 40 MG/0.4 ML SYRINGE SQ SCH (11:33)
[2016-04-22] MEDS: PANTOPRAZOLE SODIUM 40 MG VIAL IV PUSH SCH (11:33)
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
[2016-04-22] MEDS ORDERED: MANNITOL 12.5 GM/50 ML VIAL IV ONE (17:45)
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
[2016-04-22] MEDS: fentaNYL DRIP 250 ML IV SCH (20:32)
[2016-04-22] MEDS: CHLORHEXIDINE GLUCONATE 2 % 1 PACK (2 CLOTHS) TOP SCH (20:33)
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
[2016-04-23] VITALS (19 sets, daily range): BP systolic 126–165; BP diastolic 63–90; PULSE 82–106; RESP 19–22; TEMP 99.4–101.6; O2SAT 96–100
[2016-04-23 00:05] LABS: BICARBONATE 26.1 MEQ/L (21.0-32.0); POTASSIUM 3.9 MEQ/L (3.5-5.1)
[2016-04-23] MEDS: PROPOFOL 1000 MG/100 ML INJ 100 ML IV SCH ×5 (03:38→21:28)
[2016-04-23] MEDS ORDERED: EPINEPHrine HCL (1:10,000) 1 MG/10 ML SYRINGE ONE (04:03)
[2016-04-23] MEDS ORDERED: LIDOCAINE HCL 2% 100 MG/5 ML SYRINGE ONE (04:03)
[2016-04-23] MEDS ORDERED: ATROPINE SULFATE 1 MG/10 ML SYRINGE ONE (04:03)
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
[2016-04-23] MEDS: METOCLOPRAMIDE HCL 10 MG/2 ML VIAL IV PUSH SCH ×3 (05:01→20:34)
[2016-04-23 05:37] LABS: HEMATOCRIT 29.3 % (39.0-51.0); MEAN CELL VOLUME 88.7 FL (80.0-100.0); MEAN CORPUSCULAR HEMOGLOBIN 29.9 PG (27.0-34.0); MEAN CORPUSCULAR HGB CONC 33.7 % (32.0-36.0); PLATELET COUNT 446 TH/MM3 (150-450); RED BLOOD COUNT 3.31 MIL/MM3 (4.50-5.90); WHITE BLOOD COUNT 11.7 TH/MM3 (4.0-11.0)
[2016-04-23 05:43] LABS: BLOOD GAS BASE EXCESS -1.1 mmol/L (-2-2); BLOOD GAS CARBOXYHEMOGLOBIN 1.1 % (0-4); BLOOD GAS HCO3 22 mmol/L (22-26); BLOOD GAS METHEMOGLOBIN 0.8 % (0-2); BLOOD GAS O2 HGB SATURATION 96 % (90-100); BLOOD GAS OXYGEN CONTENT 14.5 Vol % (12.0-20.0); BLOOD GAS PCO2 30 mmHg (38-42); BLOOD GAS PO2 97 mmHg (61-120); BLOOD GAS TOTAL HGB 10.7 G/DL (12.0-16.0); TEMP CORR TO 98.6
[2016-04-23 05:44] LABS: CRITICAL VALUE NO; DRAW SITE RT RADIAL; FIO2 35 %; NUMBER OF ARTERIAL PUNCTURES 1; OXYGEN DEVICE VENTILATOR; STAT NO; ULNAR PULSE PRESENT; VENT SETTINGS AC 22/600/5PEEP
[2016-04-23] MEDS: MIDAZOLAM 100 MG/NS 100 ML DRIP Premix IV SCH (08:01)
[2016-04-23] MEDS: LACTULOSE SYRUP 20 GM/30 ML CUP PO SCH (08:01)
[2016-04-23] MEDS: DOCUSATE SODIUM 50 MG/SENNA 8.6 MG TAB PO SCH ×2 (08:01→20:34)
[2016-04-23] MEDS: ACETAMINOPHEN 325 MG TAB PO PRN ×2 (08:02→14:48)
[2016-04-23] MEDS: BISACODYL 10 MG SUPP RECTAL SCH (08:03)
[2016-04-23] MEDS: levETIRAcetam INJ 500 MG in SODIUM CHLORIDE 0.9% INJ 100 ML IV SCH ×2 (08:03→20:34)
[2016-04-23] MEDS: SODIUM CHLORIDE 0.9% FLUSH 5 ML FLUSH IVF SCH ×2 (08:03→20:34)
[2016-04-23] MEDS: 3% SALINE INJ 500 ML IV SCH (09:48)
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
[2016-04-23 11:33] LABS: BASOPHILS 1 % (0-2); EOSINOPHILS 7 % (0-4); NEUTROPHIL # MANUAL DIFF 8.2 TH/MM3 (1.8-7.7); POLYS (SEG NEUTROPHILS) 70 % (16-70); SCAN/DIFF FINAL DIFF MANUAL; WBC DIFF SAMPLE 100
[2016-04-23 11:35] LABS: PLATELET ESTIMATE SMEAR HIGH (NORMAL); PLATELET MORPHOLOGY NORMAL (NORMAL)
[2016-04-23 11:59] LABS: BLOOD, URINE MOD (NEG); GLUCOSE,URINE NEG (NEG); KETONE, URINE TRACE mg/dL (NEG); MUCUS URINE FEW /lpf (OCC); NITRITE,URINE NEG (NEG); URINE COLOR YELLOW (YELLW/STRAW)
[2016-04-23 12:00] LABS: COMMENT (UR) CATH-CULT NOT IND; CULTURE IF INDICATED CATH CULTURE NOT IND
[2016-04-23] MEDS: ENOXAPARIN SODIUM 40 MG/0.4 ML SYRINGE SQ SCH (12:01)
[2016-04-23] MEDS: fentaNYL DRIP 250 ML IV SCH (12:01)
[2016-04-23] MEDS: PANTOPRAZOLE SODIUM 40 MG VIAL IV PUSH SCH (12:01)
[2016-04-23] MEDS: hydrALAZINE HCL 20 MG/ML VIAL IV PUSH PRN (14:13)
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
[2016-04-23] MEDS ORDERED: FOSPHENYTOIN SODIUM 500 MG PE/10 ML VIAL IM ONE (18:15)
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
[2016-04-23] MEDS ORDERED: FOSPHENYTOIN INJ 1,000 MGPE in SODIUM CHLORIDE 0.9% INJ 50 ML IV ONE (18:45)
[2016-04-23] MEDS: FOSPHENYTOIN SODIUM 100 MG PE/2 ML VIAL IV SCH (21:11)
[2016-04-24] VITALS (18 sets, daily range): BP systolic 117–168; BP diastolic 56–97; PULSE 79–97; RESP 19–24; TEMP 99.6–101; O2SAT 97–100
[2016-04-24] MEDS: PROPOFOL 1000 MG/100 ML INJ 100 ML IV SCH ×7 (01:10→23:51)
[2016-04-24] MEDS: fentaNYL DRIP 250 ML IV SCH ×2 (01:10→17:53)
[2016-04-24] MEDS: 3% SALINE INJ 500 ML IV SCH ×2 (01:10→12:54)
[2016-04-24] MEDS: ACETAMINOPHEN 325 MG TAB PO PRN (01:20)
[2016-04-24] MEDS: CHLORHEXIDINE GLUCONATE 2 % 1 PACK (2 CLOTHS) TOP SCH (02:14)
[2016-04-24] MEDS: FOSPHENYTOIN SODIUM 100 MG PE/2 ML VIAL IV SCH ×3 (04:51→22:14)
[2016-04-24] MEDS: METOCLOPRAMIDE HCL 10 MG/2 ML VIAL IV PUSH SCH ×3 (04:51→21:08)
--- NOTE | 2016-04-24 05:03 | RADRPT ---
EXAM DATE/TIME: 04/24/2016 04:39 [place] COMPARISON: CHEST SINGLE AP, April 23, 2016, 9:28. INDICATIONS : Shortness of breath. MEDICAL HISTORY : None. SURGICAL HISTORY : Craniotomy. ENCOUNTER: Subsequent ACUITY: 1 week PAIN SCORE: Non-responsive. LOCATION: Bilateral chest FINDINGS: The cardiac silhouette is enlarged in transverse diameter. There is left lower lobe atelectasis versu s pneumonia. Support lines and tubes are in satisfactory position. CONCLUSION: 1. Left lower lobe atelectasis versus pneumonia. There has been no significant change when compared t o the prior exam. Dakotah Martinez MD on April 24, 2016 at 5:01 Board Certified Radiologist. This report was verified electronically.
[2016-04-24 05:43] LABS: BLOOD GAS BASE EXCESS -2.7 mmol/L (-2-2); BLOOD GAS HCO3 21 mmol/L (22-26); BLOOD GAS METHEMOGLOBIN 0.6 % (0-2); BLOOD GAS O2 HGB SATURATION 96 % (90-100); BLOOD GAS OXYGEN CONTENT 13.4 Vol % (12.0-20.0); BLOOD GAS PCO2 34 mmHg (38-42); BLOOD GAS PO2 104 mmHg (61-120); BLOOD GAS TOTAL HGB 9.8 G/DL (12.0-16.0); CRITICAL VALUE NO; DRAW SITE RT RADIAL; FIO2 35 %; NUMBER OF ARTERIAL PUNCTURES 1; OXYGEN DEVICE VENTILATOR; STAT NO; TEMP CORR TO 98.6; ULNAR PULSE PRESENT; VENT SETTINGS AC/20/600/PEEP5
[2016-04-24 06:14] LABS: AUTOMATED NEUTROPHIL # 8.3 TH/MM3 (1.8-7.7); BASOPHIL # 0.2 TH/MM3 (0-0.2); BASOPHIL % 1.3 % (0.0-2.0); EOSINOPHIL # 0.9 TH/MM3 (0-0.4); EOSINOPHIL % 6.9 % (0.0-4.0); HEMATOCRIT 27.9 % (39.0-51.0); HEMO FLAGS DIFF FINAL; LYMPH % 21.6 % (9.0-44.0); LYMPHOCYTE # 2.9 TH/MM3 (1.0-4.8); MEAN CELL VOLUME 89.7 FL (80.0-100.0); MEAN CORPUSCULAR HEMOGLOBIN 29.8 PG (27.0-34.0); MEAN CORPUSCULAR HGB CONC 33.3 % (32.0-36.0); MONO % 7.2 % (0.0-8.0); PLATELET COUNT 460 TH/MM3 (150-450); RED BLOOD COUNT 3.11 MIL/MM3 (4.50-5.90); RED CELL DISTRIBUTION WIDTH 13.9 % (11.6-17.2); WHITE BLOOD COUNT 13.2 TH/MM3 (4.0-11.0)
[2016-04-24 06:37] LABS: ANION GAP 9 MEQ/L (5-15); AST (GOT) 33 U/L (15-37); BICARBONATE 22.6 MEQ/L (21.0-32.0); BLOOD UREA NITROGEN 15 MG/DL (7-18); CHLORIDE 113 MEQ/L (98-107); GLOMERULAR FILTRATION RATE 127 ML/MIN (>89); MAGNESIUM 2.4 MG/DL (1.5-2.5); POTASSIUM 3.5 MEQ/L (3.5-5.1); SODIUM (NA) 145 MEQ/L (136-145)
[2016-04-24 06:40] LABS: ALKALINE PHOSPHATASE 118 U/L (45-117); ALT (GPT) 53 U/L (12-78); TOTAL BILIRUBIN ADULT 0.6 MG/DL (0.2-1.0)
[2016-04-24] MEDS: DOCUSATE SODIUM 50 MG/SENNA 8.6 MG TAB PO SCH ×2 (08:34→20:16)
[2016-04-24] MEDS: BISACODYL 10 MG SUPP RECTAL SCH (08:34)
[2016-04-24] MEDS: LACTULOSE SYRUP 20 GM/30 ML CUP PO SCH (08:34)
[2016-04-24] MEDS: hydrALAZINE HCL 20 MG/ML VIAL IV PUSH PRN (08:34)
[2016-04-24] MEDS: SODIUM CHLORIDE 0.9% FLUSH 5 ML FLUSH IVF SCH ×2 (08:34→20:16)
[2016-04-24] MEDS: levETIRAcetam INJ 500 MG in SODIUM CHLORIDE 0.9% INJ 100 ML IV SCH ×2 (08:34→21:00)
[2016-04-24] MEDS ORDERED: DEXMEDETOMIDINE INJ 50 ML IV SCH (09:15)
[2016-04-24] MEDS: METOPROLOL TARTRATE 5 MG/5 ML VIAL IV PUSH SCH ×3 (09:33→21:09)
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
[2016-04-24] MEDS: PANTOPRAZOLE SODIUM 40 MG VIAL IV PUSH SCH (11:33)
[2016-04-24] MEDS: ENOXAPARIN SODIUM 40 MG/0.4 ML SYRINGE SQ SCH (11:33)
[2016-04-24] MEDS: ARTIFICIAL TEARS OPTH OINT 3.5 APPLIC/3.5 GM TUBO EACH EYE SCH ×2 (12:05→21:09)
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
[2016-04-24] MEDS ORDERED: Vancomycin Consult Pharmacy 1 EA OTHER SCH (19:15)
[2016-04-24] MEDS ORDERED: VANCOMYCIN INJ 1,500 MG in SODIUM CHLORID 0.9% 500 ML INJ 500 ML IV SCH (19:15)
--- NOTE | 2016-04-24 19:16 | HHI.CCPN ---
Subjective 24 Hour Review/Hospital Course 04/15/[address] is stable, he is mentating normally today, postconcussive 04/17/16 Patient with intracranial bleed mainly subdural and then some intraparenchymal on the right Repeat CAT scan shows some more shift however neurologic status stable and patient is fully awake and alert No lateralization Fairly somnolent but able to eat and drink without assistance Lab studies reveal declining sodium level and mild hyponatremia which is associated with increased complications in this situation therefore sodium will be brought up by infusional 23% saline about 60 cc and also we will start 3% saline via central line 04/19/2016 Patient is status post decompressive right frontoparietal craniectomy for large expanding subdural hematoma Patient intubated and ventilated Remains sedated on propofol and fentanyl 04/20/16 Patient remains intubated and ventilated and heavily sedated in order to keep ICP within physiologic range Episode off increased ICP middle of the night and this was successfully treated with addition of Versed as the sedative agents 04/21/16 Status post right craniectomy Patient's been stable throughout last 24 hours and ICPs remain in 2-6 mmHg range 04/22/16 Patient been stable for last 24 hours Brain swelling appears to have some decreased some and ICPs have been ranging 6- 12 for the last 24 hours Patient had 1 episode where the ICPs went over 20 and had to be managed with mannitol 04/23/2016 Patient doing better in the last 24 hours without increases in ICP since last night. Today with lightening up of sedation patient started to wake up but still cannot protect upper airway and does not follow commands In face of improving neurologic status the tracheostomy has been postponed 04/24/2016 Patient has been allowed to wake up today is moving all 4 extremities tolerating CPAP ICP has been manageable and within range Patient has a left lower lobe infiltrate consistent with a pneumonia or atelectasis and has grown staph aureus and gram-negative rods will start him on antibiotics Patient has aspirated at the time of injury and this is the result of the same Objective Vital Signs Date Time Temp Pulse Resp B/P Pulse Ox O2 Delivery O2 Flow Rate FiO2 04/24/16 18:00 93 04/24/16 16:45 35 04/24/16 16:11 98 04/24/16 16:00 100.5 20 144/65 Intake and Output 2/04/23/16 04/23/16 07:59 15:59 23:59 Intake Total 850 ml 782 ml 1013 ml Output Total 1085 ml 1096 ml 955 ml Balance -235 ml -314 ml 58 ml Result Diagram: 04/24/16 0530 04/24/16 1226 Other Results Laboratory Tests Test 04/24/16 05:30 Blood Gas Puncture Site RT RADIAL Blood Gas Patient Temperature 98.6 Blood Gas HCO3 21 mmol/L (22-26) Blood Gas Base Excess -2.7 mmol/L (-2-2) Blood Gas Oxygen Saturation 96 % (90-100) Arterial Blood pH 7.41 (7.380-7.420) Arterial Blood Partial 34 mmHg (38-42) Pressure CO2 Arterial Blood Partial 104 mmHg Pressure O2 (61-120) Arterial Blood Oxygen Content 13.4 Vol % (12.0-20.0) Arterial Blood 1.0 % (0-4) Carboxyhemoglobin Arterial Blood Methemoglobin 0.6 % (0-2) Blood Gas Hemoglobin 9.8 G/DL (12.0-16.0) Oxygen Delivery Device VENTILATOR Blood Gas Ventilator Setting AC/20/600/PEEP5 Blood Gas Inspired Oxygen 35 % Imaging Last 24 hours Impressions Chest X-Ray 04/24/16 0600 Signed Impressions: Service Date/Time: Sunday, April 24, 2016 04:39 - CONCLUSION: 1. Left lower lobe atelectasis versus pneumonia. There has been no significant change when compared to the prior exam. 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 ICPs managed within the normal range with good perfusion pressure and mean arterial pressure Patient has been moving all 4 extremities and has been purposeful this morning when sedation was lightened up Tolerates CPAP Hemodynamic/Cardiac Hemodynamically remains stable Pulmonary/Respiratory Bilateral breath sounds left lower lobe infiltrates consistent with possible pneumonia atelectasis and consistent with aspiration at the time of accident We'll place an IV antibiotics Abdomen/GI Nutrition Abdomen is soft Renal/I&O Good urine output Assessment and Plan Plan Will wean as tolerated In the face of the fact that patient is neurologically very much improving and tolerating CPAP as well as following commands at this point I'm postponing tracheostomy and hopefully patient will not need one Attestation The exam, history, and the medical decision-making described in the above note were completed with the assistance of the mid-level provider. I reviewed and agree with the findings presented. I attest that I had a [id number] encounter with the patient on the same day, and personally performed and documented my assessment and findings in the medical record. Critical care time 35 minutes. Catarina Nguyen MD Apr 24, 2016 19:16
[2016-04-24] MEDS ORDERED: ALTEPLASE RECOMBINANT 2 MG VIAL IV FLUSH PRN (19:45)
[2016-04-24] MEDS ORDERED: VANCOMYCIN INJ 2,000 MG in SODIUM CHLORID 0.9% 500 ML INJ 500 ML IV ONE (20:00)
[2016-04-24] MEDS: PIPERACIL-TAZO 3.375 GM PREMIX 50 ML IV SCH (20:15)
[2016-04-24] MEDS: CHLORHEXIDINE 0.12% (ORAL KIT) 15 ML CUP MT SCH (20:16)
[2016-04-25] VITALS (18 sets, daily range): BP systolic 117–152; BP diastolic 60–80; PULSE 78–100; RESP 20–21; TEMP 99.4–101.5; O2SAT 96–100
[2016-04-25] MEDS: PIPERACIL-TAZO 3.375 GM PREMIX 50 ML IV SCH ×4 (00:04→20:06)
[2016-04-25] MEDS: ACETAMINOPHEN 325 MG TAB PO PRN ×3 (00:04→20:24)
[2016-04-25] MEDS: 3% SALINE INJ 500 ML IV SCH (02:27)
[2016-04-25 02:51] LABS: HEMATOCRIT 25.7 % (39.0-51.0); MEAN CELL VOLUME 89.5 FL (80.0-100.0); MEAN CORPUSCULAR HEMOGLOBIN 30.2 PG (27.0-34.0); MEAN CORPUSCULAR HGB CONC 33.7 % (32.0-36.0); PLATELET COUNT 403 TH/MM3 (150-450); RED BLOOD COUNT 2.87 MIL/MM3 (4.50-5.90); RED CELL DISTRIBUTION WIDTH 13.8 % (11.6-17.2); REVIEW FLAG FINAL
[2016-04-25] MEDS: METOPROLOL TARTRATE 5 MG/5 ML VIAL IV PUSH SCH ×4 (03:10→20:30)
[2016-04-25] MEDS: PROPOFOL 1000 MG/100 ML INJ 100 ML IV SCH ×6 (03:10→20:07)
[2016-04-25] MEDS: VANCOMYCIN INJ 1,250 MG in SODIUM CHLOR 0.9% 250 ML INJ 250 ML IV SCH ×3 (03:10→22:01)
[2016-04-25] MEDS: CHLORHEXIDINE GLUCONATE 2 % 1 PACK (2 CLOTHS) TOP SCH (03:11)
[2016-04-25] MEDS: FOSPHENYTOIN SODIUM 100 MG PE/2 ML VIAL IV SCH ×3 (06:20→20:30)
[2016-04-25] MEDS: METOCLOPRAMIDE HCL 10 MG/2 ML VIAL IV PUSH SCH ×3 (06:21→20:30)
[2016-04-25] MEDS ORDERED: VANCOMYCIN INJ 1,750 MG in SODIUM CHLORID 0.9% 500 ML INJ 500 ML IV SCH (08:00)
[2016-04-25] MEDS: CHLORHEXIDINE 0.12% (ORAL KIT) 15 ML CUP MT SCH ×2 (08:00→20:06)
[2016-04-25 08:06] LABS: BICARBONATE 22.2 MEQ/L (21.0-32.0); POTASSIUM 3.3 MEQ/L (3.5-5.1)
[2016-04-25] MEDS ORDERED: BISACODYL 10 MG SUPP RECTAL PRN (08:45)
[2016-04-25] MEDS: levETIRAcetam INJ 500 MG in SODIUM CHLORIDE 0.9% INJ 100 ML IV SCH ×2 (08:47→20:29)
[2016-04-25] MEDS: ARTIFICIAL TEARS OPTH OINT 3.5 APPLIC/3.5 GM TUBO EACH EYE SCH ×2 (08:47→20:08)
[2016-04-25] MEDS: LACTULOSE SYRUP 20 GM/30 ML CUP PO SCH (08:47)
[2016-04-25] MEDS: DOCUSATE SODIUM 50 MG/SENNA 8.6 MG TAB PO SCH ×2 (08:48→20:08)
[2016-04-25] MEDS: SODIUM CHLORIDE 0.9% FLUSH 5 ML FLUSH IVF SCH ×2 (08:48→20:08)
[2016-04-25] MEDS: BISACODYL 10 MG SUPP RECTAL SCH (08:54)
[2016-04-25] MEDS: FAMOTIDINE 20 MG TAB PO SCH ×2 (08:54→20:08)
[2016-04-25] MEDS: fentaNYL DRIP 250 ML IV SCH (09:45)
[2016-04-25] MEDS: ENOXAPARIN SODIUM 40 MG/0.4 ML SYRINGE SQ SCH (11:58)
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
--- NOTE | 2016-04-25 15:38 | MG ---
cc: ELVA VINCENT M.D. Lab No: [id number] Date: 04/25/2016 Age: Sex: M Race: TECHNIQUE: 17 channel EEG. DESCRIPTION: The patient's sedation was on hold prior to this tracing. The background rhythm reveals slowing which appears to be worse over the right hemisphere than over the left. The right hemisphere is in the delta range 3-4 Hz; the left is in the theta range at about 6 Hz. Amplitude is about 5 microvolts over the left hemisphere and about 20-30 microvolts over the right hemisphere. I do not see any epileptiform discharges. There is occasional muscle artifact on the EEG. INTERPRETATION: Abnormal study consistent with a diffuse encephalopathy. There is asymmetry suggesting the possibility of a structural lesion over the right hemisphere given focal slowing in that area. MD KARISHMA Perez/OTIS /1:42 PM /3:35 PM
--- NOTE | 2016-04-25 16:32 | HHI.CCPN ---
Subjective 24 Hour Review/Hospital Course 04/15/[address] is stable, he is mentating normally today, postconcussive 04/17/16 Patient with intracranial bleed mainly subdural and then some intraparenchymal on the right Repeat CAT scan shows some more shift however neurologic status stable and patient is fully awake and alert No lateralization Fairly somnolent but able to eat and drink without assistance Lab studies reveal declining sodium level and mild hyponatremia which is associated with increased complications in this situation therefore sodium will be brought up by infusional 23% saline about 60 cc and also we will start 3% saline via central line 04/19/2016 Patient is status post decompressive right frontoparietal craniectomy for large expanding subdural hematoma Patient intubated and ventilated Remains sedated on propofol and fentanyl 04/20/16 Patient remains intubated and ventilated and heavily sedated in order to keep ICP within physiologic range Episode off increased ICP middle of the night and this was successfully treated with addition of Versed as the sedative agents 04/21/16 Status post right craniectomy Patient's been stable throughout last 24 hours and ICPs remain in 2-6 mmHg range 04/22/16 Patient been stable for last 24 hours Brain swelling appears to have some decreased some and ICPs have been ranging 6- 12 for the last 24 hours Patient had 1 episode where the ICPs went over 20 and had to be managed with mannitol 04/23/2016 Patient doing better in the last 24 hours without increases in ICP since last night. Today with lightening up of sedation patient started to wake up but still cannot protect upper airway and does not follow commands In face of improving neurologic status the tracheostomy has been postponed 04/24/2016 Patient has been allowed to wake up today is moving all 4 extremities tolerating CPAP ICP has been manageable and within range Patient has a left lower lobe infiltrate consistent with a pneumonia or atelectasis and has grown staph aureus and gram-negative rods will start him on antibiotics Patient has aspirated at the time of injury and this is the result of the same 04/25/16 No change in neurologic status On sedation indication patient opens eyes follows commands and tracks Moves all 4 extremities Unfortunately patient is not able to tolerate weaning at this time and therefore cannot be extubated with the secure protect the airway In face of improved neurologic status I will postpone tracheostomy abated then patient may not need it at all Objective Vital Signs Date Time Temp Pulse Resp B/P Pulse Ox O2 Delivery O2 Flow Rate FiO2 04/25/16 12:55 98 45 04/25/16 12:00 101.5 89 21 148/67 Intake and Output 04/24/16 04/24/16 04/25/16 08:00 16:00 00:00 Intake Total 790 ml 702 ml 1294 ml Output Total 530.0 ml 1062.0 ml 1213 ml Balance 260.0 ml -360.0 ml 81 ml Result Diagram: 04/25/16 0230 04/25/16 0905 Other Results Microbiology Date/Time Procedure Status Source Growth 04/23/16 17:20 Gram Stain - Final Complete Sputum Expectorated Sputum 04/23/16 17:20 Sputum Culture - Final Complete Staphylococcus Aureus Enterobacter Cloacae Beta Strep Not Group A Exam [employer] Patient following commands with sedation decrease Moves all 4 extremities ICPs remain manageable and patient is on small dose off sedation and analgesia Not extubated able yet Hemodynamic/Cardiac Hemodynamically intact Pulmonary/Respiratory Bilateral breath sounds on assist control ventilation and CPAP Assessment and Plan Plan Will wean as tolerated In the face of the fact that patient is neurologically very much improving and tolerating CPAP as well as following commands at this point I'm postponing tracheostomy and hopefully patient will not need one Attestation The exam, history, and the medical decision-making described in the above note were completed with the assistance of the mid-level provider. I reviewed and agree with the findings presented. I attest that I had a [id number] encounter with the patient on the same day, and personally performed and documented my assessment and findings in the medical record. Critical care time 35 minutes. Catarina Nguyen MD Apr 25, 2016 16:32
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
[2016-04-25] MEDS ORDERED: PHARMACY ORDERED LAB XX ONE (19:45)
[2016-04-25] MEDS: POTASSIUM CHLOR 40 MEQ PREMIX 100 ML IV PRN (20:58)
[2016-04-26] VITALS (18 sets, daily range): BP systolic 113–158; BP diastolic 58–88; PULSE 77–93; RESP 14–20; TEMP 98.7–101.2; O2SAT 98–100
[2016-04-26] MEDS: PROPOFOL 1000 MG/100 ML INJ 100 ML IV SCH ×6 (00:02→22:33)
[2016-04-26] MEDS: fentaNYL DRIP 250 ML IV SCH ×2 (00:10→13:13)
[2016-04-26] MEDS: PIPERACIL-TAZO 3.375 GM PREMIX 50 ML IV SCH ×4 (00:11→20:26)
[2016-04-26] MEDS: ACETAMINOPHEN 325 MG TAB PO PRN (00:11)
[2016-04-26] MEDS: VANCOMYCIN 1,000 MG/NS 250 ML IV SCH ×6 (03:31→17:05)
[2016-04-26] MEDS: METOPROLOL TARTRATE 5 MG/5 ML VIAL IV PUSH SCH ×4 (03:32→22:00)
[2016-04-26] MEDS: CHLORHEXIDINE GLUCONATE 2 % 1 PACK (2 CLOTHS) TOP SCH (03:32)
[2016-04-26] MEDS: 3% SALINE INJ 500 ML IV SCH (04:10)
[2016-04-26 04:27] LABS: BLOOD GAS BASE EXCESS -1.1 mmol/L (-2-2); BLOOD GAS CARBOXYHEMOGLOBIN 1.2 % (0-4); BLOOD GAS HCO3 23 mmol/L (22-26); BLOOD GAS METHEMOGLOBIN 0.8 % (0-2); BLOOD GAS O2 HGB SATURATION 96 % (90-100); BLOOD GAS OXYGEN CONTENT 12.4 Vol % (12.0-20.0); BLOOD GAS PCO2 37 mmHg (38-42); BLOOD GAS PO2 102 mmHg (61-120); BLOOD GAS TOTAL HGB 9.1 G/DL (12.0-16.0); CRITICAL VALUE NO; DRAW SITE RT RADIAL; FIO2 40 %; NUMBER OF ARTERIAL PUNCTURES 1; OXYGEN DEVICE VENTILATOR; TEMP CORR TO 98.6; VENT SETTINGS PRVC/AC
[2016-04-26 04:28] LABS: STAT NO; ULNAR PULSE PRESENT
--- NOTE | 2016-04-26 04:32 | RADRPT ---
EXAM DATE/TIME: 04/26/2016 04:03 [place] COMPARISON: CHEST SINGLE AP, April 24, 2016, 4:39. INDICATIONS : Shortness of breath. MEDICAL HISTORY : None. SURGICAL HISTORY : None. ENCOUNTER: Subsequent ACUITY: 1 week PAIN SCORE: Non-responsive. LOCATION: Bilateral chest FINDINGS: The cardiac silhouette is enlarged in transverse diameter. There is left lower lobe atelectasis versu s pneumonia. The right lung is free of acute parenchymal opacity. Support lines and tubes are in sati sfactory position. CONCLUSION: 1. Left lower lobe atelectasis versus pneumonia. An inferior vena cava filter is in place. Dakotah Martinez MD on April 26, 2016 at 4:30 Board Certified Radiologist. This report was verified electronically.
[2016-04-26] MEDS: METOCLOPRAMIDE HCL 10 MG/2 ML VIAL IV PUSH SCH ×3 (05:29→20:27)
[2016-04-26] MEDS: FOSPHENYTOIN SODIUM 100 MG PE/2 ML VIAL IV SCH ×3 (05:30→22:32)
[2016-04-26 05:37] LABS: BASOPHIL # 0.1 TH/MM3 (0-0.2); BASOPHIL % 0.6 % (0.0-2.0); EOSINOPHIL # 0.9 TH/MM3 (0-0.4); HEMATOCRIT 26.1 % (39.0-51.0); HEMO FLAGS DIFF FINAL; LYMPH % 5.9 % (9.0-44.0); LYMPHOCYTE # 1.4 TH/MM3 (1.0-4.8); MEAN CELL VOLUME 90.7 FL (80.0-100.0); MEAN CORPUSCULAR HEMOGLOBIN 30.6 PG (27.0-34.0); MEAN CORPUSCULAR HGB CONC 33.8 % (32.0-36.0); MONO % 5.1 % (0.0-8.0); NEUT % 84.4 % (16.0-70.0); PLATELET COUNT 409 TH/MM3 (150-450); RED BLOOD COUNT 2.88 MIL/MM3 (4.50-5.90); RED CELL DISTRIBUTION WIDTH 13.8 % (11.6-17.2); WHITE BLOOD COUNT 23.7 TH/MM3 (4.0-11.0)
[2016-04-26 05:47] LABS: ALT (GPT) 61 U/L (12-78); ANION GAP 6 MEQ/L (5-15); AST (GOT) 41 U/L (15-37); BICARBONATE 24.9 MEQ/L (21.0-32.0); BLOOD UREA NITROGEN 8 MG/DL (7-18); CHLORIDE 112 MEQ/L (98-107); GLOMERULAR FILTRATION RATE 167 ML/MIN (>89); MAGNESIUM 2.1 MG/DL (1.5-2.5); POTASSIUM 3.7 MEQ/L (3.5-5.1); SODIUM (NA) 143 MEQ/L (136-145)
[2016-04-26 05:49] LABS: ALKALINE PHOSPHATASE 148 U/L (45-117); TOTAL BILIRUBIN ADULT 0.7 MG/DL (0.2-1.0)
[2016-04-26] MEDS: CHLORHEXIDINE 0.12% (ORAL KIT) 15 ML CUP MT SCH ×2 (08:00→20:29)
[2016-04-26] MEDS: ARTIFICIAL TEARS OPTH OINT 3.5 APPLIC/3.5 GM TUBO EACH EYE SCH ×2 (08:13→20:29)
[2016-04-26] MEDS: LACTULOSE SYRUP 20 GM/30 ML CUP PO SCH (08:21)
[2016-04-26] MEDS: SODIUM CHLORIDE 0.9% FLUSH 5 ML FLUSH IVF SCH ×2 (08:21→20:27)
[2016-04-26] MEDS: levETIRAcetam INJ 500 MG in SODIUM CHLORIDE 0.9% INJ 100 ML IV SCH ×2 (08:21→20:26)
[2016-04-26] MEDS: DOCUSATE SODIUM 50 MG/SENNA 8.6 MG TAB PO SCH ×2 (08:22→20:26)
[2016-04-26] MEDS: BISACODYL 10 MG SUPP RECTAL SCH (08:22)
[2016-04-26] MEDS: FAMOTIDINE 20 MG TAB PO SCH ×2 (08:22→20:27)
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
[2016-04-26] MEDS: ENOXAPARIN SODIUM 40 MG/0.4 ML SYRINGE SQ SCH (13:13)
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
--- NOTE | 2016-04-26 15:06 | HHI.CCPN ---
Subjective 24 Hour Review/Hospital Course 04/15/[address] is stable, he is mentating normally today, postconcussive 04/17/16 Patient with intracranial bleed mainly subdural and then some intraparenchymal on the right Repeat CAT scan shows some more shift however neurologic status stable and patient is fully awake and alert No lateralization Fairly somnolent but able to eat and drink without assistance Lab studies reveal declining sodium level and mild hyponatremia which is associated with increased complications in this situation therefore sodium will be brought up by infusional 23% saline about 60 cc and also we will start 3% saline via central line 04/19/2016 Patient is status post decompressive right frontoparietal craniectomy for large expanding subdural hematoma Patient intubated and ventilated Remains sedated on propofol and fentanyl 04/20/16 Patient remains intubated and ventilated and heavily sedated in order to keep ICP within physiologic range Episode off increased ICP middle of the night and this was successfully treated with addition of Versed as the sedative agents 04/21/16 Status post right craniectomy Patient's been stable throughout last 24 hours and ICPs remain in 2-6 mmHg range 04/22/16 Patient been stable for last 24 hours Brain swelling appears to have some decreased some and ICPs have been ranging 6- 12 for the last 24 hours Patient had 1 episode where the ICPs went over 20 and had to be managed with mannitol 04/23/2016 Patient doing better in the last 24 hours without increases in ICP since last night. Today with lightening up of sedation patient started to wake up but still cannot protect upper airway and does not follow commands In face of improving neurologic status the tracheostomy has been postponed 04/24/2016 Patient has been allowed to wake up today is moving all 4 extremities tolerating CPAP ICP has been manageable and within range Patient has a left lower lobe infiltrate consistent with a pneumonia or atelectasis and has grown staph aureus and gram-negative rods will start him on antibiotics Patient has aspirated at the time of injury and this is the result of the same 04/25/16 No change in neurologic status On sedation indication patient opens eyes follows commands and tracks Moves all 4 extremities Unfortunately patient is not able to tolerate weaning at this time and therefore cannot be extubated with the secure protect the airway In face of improved neurologic status I will postpone tracheostomy abated then patient may not need it at all 04/26/16 Neurologically patient is gradually improving when the Precedex removed patient is following commands opens eyes tracks and can communicate The respiratory function is gradually improving Patient still has ventriculostomy and therefore will not extubate him while he has ventriculostomy in place Once the patient doesn't need ventriculostomy then that would be good time to extubate patient Objective Vital Signs Date Time Temp Pulse Resp B/P Pulse Ox O2 Delivery O2 Flow Rate FiO2 04/26/16 14:00 85 04/26/16 12:27 98 40 04/26/16 12:00 98.7 14 124/65 Intake and Output 04/25/16 04/25/16 04/26/16 08:00 16:00 00:00 Intake Total 1316 ml 1715 ml 2074 ml Output Total 552.0 ml 1010.0 ml 898.0 ml Balance 764.0 ml 705.0 ml 1176.0 ml Result Diagram: 04/26/16 0505 04/26/16 1105 Other Results Microbiology Date/Time Procedure Status Source Growth 04/23/16 17:20 Gram Stain - Final Complete Sputum Expectorated Sputum 04/23/16 17:20 Sputum Culture - Final Complete Staphylococcus Aureus Enterobacter Cloacae Beta Strep Not Group A Laboratory Tests Test 04/26/16 04:15 Blood Gas Puncture Site RT RADIAL Blood Gas Patient Temperature 98.6 Blood Gas HCO3 23 mmol/L (22-26) Blood Gas Base Excess -1.1 mmol/L (-2-2) Blood Gas Oxygen Saturation 96 % (90-100) Arterial Blood pH 7.41 (7.380-7.420) Arterial Blood Partial 37 mmHg (38-42) Pressure CO2 Arterial Blood Partial 102 mmHg Pressure O2 (61-120) Arterial Blood Oxygen Content 12.4 Vol % (12.0-20.0) Arterial Blood 1.2 % (0-4) Carboxyhemoglobin Arterial Blood Methemoglobin 0.8 % (0-2) Blood Gas Hemoglobin 9.1 G/DL (12.0-16.0) Oxygen Delivery Device VENTILATOR Blood Gas Ventilator Setting PRVC/AC Blood Gas Inspired Oxygen 40 % Imaging Last 24 hours Impressions Chest X-Ray 04/26/16 0600 Signed Impressions: Service Date/Time: Tuesday, April 26, 2016 04:03 - CONCLUSION: 1. Left lower lobe atelectasis versus pneumonia. An inferior vena cava filter is in place. Dakotah Martinez MD Exam [employer] Improving neurologic function and when Precedex removed or decreased patient follows commands tracts squeezes hands and dorsal 4 extremities Hemodynamic/Cardiac Hemodynamically patient is stable Pulmonary/Respiratory Bilateral breath sounds and good PO2 FiO2 gradient Patient has grown Escherichia coli and Enterobacter cloacae from the sputum He is on vancomycin and Zosyn which are covering both organisms ID has been consulted Abdomen/GI Nutrition Abdomen is soft enteral feeds tolerated Assessment and Plan Plan Will wean as tolerated In the face of the fact that patient is neurologically very much improving and tolerating CPAP as well as following commands at this point I'm postponing tracheostomy and hopefully patient will not need one Code Status IV consult in the traction of possibly third antibiotic Patient's tolerating CPAP well but remains with ventriculostomy Was ventriculostomy is removed we will wean to extubate patient Tracheostomy probably will not be required The exam, history, and the medical decision-making described in the above note were completed with the assistance of the mid-level provider. I reviewed and agree with the findings presented. I attest that I had a [id number] encounter with the patient on the same day, and personally performed and documented my assessment and findings in the medical record. Critical care time 40 minutes. Catarina Nguyen MD Apr 26, 2016 15:06
[2016-04-26] MEDS ORDERED: PHARMACY ORDERED LAB XX ONE ×2 (15:45)
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
[2016-04-26] MEDS: VANCOMYCIN INJ 1,800 MG in SODIUM CHLORID 0.9% 500 ML INJ 500 ML IV SCH (22:31)
[2016-04-26] MEDS: SODIUM CHLORIDE 0.9% FLUSH 5 ML FLUSH IVF PRN (22:32)
[2016-04-27] VITALS (21 sets, daily range): BP systolic 132–179; BP diastolic 70–93; PULSE 84–103; RESP 19–20; TEMP 98.6–101.8; O2SAT 93–100
[2016-04-27] MEDS: PROPOFOL 1000 MG/100 ML INJ 100 ML IV SCH ×5 (01:42→22:01)
[2016-04-27] MEDS: PIPERACIL-TAZO 3.375 GM PREMIX 50 ML IV SCH ×4 (01:43→20:09)
[2016-04-27] MEDS: fentaNYL DRIP 250 ML IV SCH ×2 (01:43→15:34)
[2016-04-27] MEDS: 3% SALINE INJ 500 ML IV SCH ×2 (01:43→20:11)
[2016-04-27] MEDS: SODIUM CHLORIDE 0.9% FLUSH 5 ML FLUSH IVF PRN ×2 (01:43→05:24)
[2016-04-27 03:15] LABS: BLOOD GAS BASE EXCESS -0.4 mmol/L (-2-2); BLOOD GAS CARBOXYHEMOGLOBIN 1.2 % (0-4); BLOOD GAS HCO3 23 mmol/L (22-26); BLOOD GAS METHEMOGLOBIN 0.6 % (0-2); BLOOD GAS O2 HGB SATURATION 97 % (90-100); BLOOD GAS OXYGEN CONTENT 12.8 Vol % (12.0-20.0); BLOOD GAS PCO2 36 mmHg (38-42); BLOOD GAS PO2 127 mmHg (61-120); BLOOD GAS TOTAL HGB 9.2 G/DL (12.0-16.0); CRITICAL VALUE NO; DRAW SITE RT RADIAL; FIO2 35 %; NUMBER OF ARTERIAL PUNCTURES 1; OXYGEN DEVICE VENTILATOR; STAT NO; TEMP CORR TO 98.6; ULNAR PULSE PRESENT; VENT SETTINGS AC 20/600/5PEEP
[2016-04-27] MEDS: CHLORHEXIDINE GLUCONATE 2 % 1 PACK (2 CLOTHS) TOP SCH (04:00)
[2016-04-27] MEDS: ACETAMINOPHEN 325 MG TAB PO PRN ×2 (04:39→20:10)
[2016-04-27] MEDS: METOPROLOL TARTRATE 5 MG/5 ML VIAL IV PUSH SCH ×4 (04:40→22:00)
[2016-04-27] MEDS: METOCLOPRAMIDE HCL 10 MG/2 ML VIAL IV PUSH SCH ×3 (05:23→21:46)
[2016-04-27] MEDS: FOSPHENYTOIN SODIUM 100 MG PE/2 ML VIAL IV SCH ×3 (05:23→21:46)
[2016-04-27 06:02] LABS: AUTOMATED NEUTROPHIL # 11.5 TH/MM3 (1.8-7.7); BASOPHIL % 0.2 % (0.0-2.0); EOSINOPHIL % 6.6 % (0.0-4.0); HEMATOCRIT 25.4 % (39.0-51.0); HEMO FLAGS DIFF FINAL; LYMPH % 9.7 % (9.0-44.0); LYMPHOCYTE # 1.5 TH/MM3 (1.0-4.8); MEAN CORPUSCULAR HGB CONC 33.8 % (32.0-36.0); MONO % 6.3 % (0.0-8.0); NEUT % 77.2 % (16.0-70.0); PLATELET COUNT 445 TH/MM3 (150-450); RED BLOOD COUNT 2.85 MIL/MM3 (4.50-5.90); RED CELL DISTRIBUTION WIDTH 13.8 % (11.6-17.2)
[2016-04-27 06:19] LABS: ANION GAP 8 MEQ/L (5-15); AST (GOT) 33 U/L (15-37); BICARBONATE 25.9 MEQ/L (21.0-32.0); BLOOD UREA NITROGEN 7 MG/DL (7-18); CHLORIDE 107 MEQ/L (98-107); GLOMERULAR FILTRATION RATE 167 ML/MIN (>89); MAGNESIUM 2.2 MG/DL (1.5-2.5); POTASSIUM 3.4 MEQ/L (3.5-5.1); SODIUM (NA) 141 MEQ/L (136-145)
[2016-04-27 06:22] LABS: ALKALINE PHOSPHATASE 310 U/L (45-117); ALT (GPT) 52 U/L (12-78); TOTAL BILIRUBIN ADULT 0.4 MG/DL (0.2-1.0)
[2016-04-27] MEDS: VANCOMYCIN INJ 1,800 MG in SODIUM CHLORID 0.9% 500 ML INJ 500 ML IV SCH ×3 (06:28→21:45)
--- NOTE | 2016-04-27 06:32 | RADRPT ---
EXAM DATE/TIME: 04/27/2016 05:01 [place] COMPARISON: CHEST SINGLE AP, April 26, 2016, 4:03. INDICATIONS : Shortness of breath. MEDICAL HISTORY : None. SURGICAL HISTORY : None. ENCOUNTER: Subsequent ACUITY: 1 week PAIN SCORE: Non-responsive. LOCATION: Bilateral chest FINDINGS: The cardiac silhouette is enlarged in transverse diameter. Support lines and tubes are in satisfactor y position. There is left lower lobe atelectasis versus pneumonia. There has been no significant luz ge when compared to the prior exam. CONCLUSION: 1. Left lower lobe atelectasis versus pneumonia. There has been no significant change when compared t o the prior exam. Dakotah Martinez MD on April 27, 2016 at 6:29 Board Certified Radiologist. This report was verified electronically.
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
[2016-04-27] MEDS: DOCUSATE SODIUM 50 MG/SENNA 8.6 MG TAB PO SCH ×2 (08:22→20:10)
[2016-04-27] MEDS: FAMOTIDINE 20 MG TAB PO SCH ×2 (08:22→20:10)
[2016-04-27] MEDS: CHLORHEXIDINE 0.12% (ORAL KIT) 15 ML CUP MT SCH ×2 (08:22→20:00)
[2016-04-27] MEDS: BISACODYL 10 MG SUPP RECTAL SCH (08:22)
[2016-04-27] MEDS: LACTULOSE SYRUP 20 GM/30 ML CUP PO SCH (08:22)
[2016-04-27] MEDS: levETIRAcetam INJ 500 MG in SODIUM CHLORIDE 0.9% INJ 100 ML IV SCH ×2 (08:23→20:09)
[2016-04-27] MEDS: ARTIFICIAL TEARS OPTH OINT 3.5 APPLIC/3.5 GM TUBO EACH EYE SCH ×2 (08:23→20:10)
[2016-04-27] MEDS: SODIUM CHLORIDE 0.9% FLUSH 5 ML FLUSH IVF SCH ×2 (08:23→20:10)
[2016-04-27] MEDS: POTASSIUM CHLOR 40 MEQ PREMIX 100 ML IV PRN (09:33)
[2016-04-27] MEDS ORDERED: FUROSEMIDE 40 MG/4 ML VIAL IV PUSH ONE (10:30)
[2016-04-27] MEDS: ENOXAPARIN SODIUM 40 MG/0.4 ML SYRINGE SQ SCH (11:20)
--- NOTE | 2016-04-27 12:15 | HHI.CCPN ---
Subjective 24 Hour Review/Hospital Course 04/15/[address] is stable, he is mentating normally today, postconcussive 04/17/16 Patient with intracranial bleed mainly subdural and then some intraparenchymal on the right Repeat CAT scan shows some more shift however neurologic status stable and patient is fully awake and alert No lateralization Fairly somnolent but able to eat and drink without assistance Lab studies reveal declining sodium level and mild hyponatremia which is associated with increased complications in this situation therefore sodium will be brought up by infusional 23% saline about 60 cc and also we will start 3% saline via central line 04/19/2016 Patient is status post decompressive right frontoparietal craniectomy for large expanding subdural hematoma Patient intubated and ventilated Remains sedated on propofol and fentanyl 04/20/16 Patient remains intubated and ventilated and heavily sedated in order to keep ICP within physiologic range Episode off increased ICP middle of the night and this was successfully treated with addition of Versed as the sedative agents 04/21/16 Status post right craniectomy Patient's been stable throughout last 24 hours and ICPs remain in 2-6 mmHg range 04/22/16 Patient been stable for last 24 hours Brain swelling appears to have some decreased some and ICPs have been ranging 6- 12 for the last 24 hours Patient had 1 episode where the ICPs went over 20 and had to be managed with mannitol 04/23/2016 Patient doing better in the last 24 hours without increases in ICP since last night. Today with lightening up of sedation patient started to wake up but still cannot protect upper airway and does not follow commands In face of improving neurologic status the tracheostomy has been postponed 04/24/2016 Patient has been allowed to wake up today is moving all 4 extremities tolerating CPAP ICP has been manageable and within range Patient has a left lower lobe infiltrate consistent with a pneumonia or atelectasis and has grown staph aureus and gram-negative rods will start him on antibiotics Patient has aspirated at the time of injury and this is the result of the same 04/25/16 No change in neurologic status On sedation indication patient opens eyes follows commands and tracks Moves all 4 extremities Unfortunately patient is not able to tolerate weaning at this time and therefore cannot be extubated with the secure protect the airway In face of improved neurologic status I will postpone tracheostomy abated then patient may not need it at all 04/26/16 Neurologically patient is gradually improving when the Precedex removed patient is following commands opens eyes tracks and can communicate The respiratory function is gradually improving Patient still has ventriculostomy and therefore will not extubate him while he has ventriculostomy in place Once the patient doesn't need ventriculostomy then that would be good time to extubate patient 04/27/2016 ICPs under control Will manage gradually patient by weaning the ventilator and from the vent considering the patient is waking up and following commands when sedation decreased as long as the ICPs do not rise beyond physiologic range Objective Vital Signs Date Time Temp Pulse Resp B/P Pulse Ox O2 Delivery O2 Flow Rate FiO2 04/27/16 10:04 97 30 04/27/16 10:00 84 04/27/16 08:00 100.2 20 134/70 Intake and Output 04/26/16 04/26/16 04/27/16 08:00 16:00 00:00 Intake Total 1633 ml 1241 ml 1445 ml Output Total 870.0 ml 810.0 ml 1464.0 ml Balance 763.0 ml 431.0 ml -19.0 ml Result Diagram: 04/27/16 0536 04/27/16 0945 Other Results Laboratory Tests Test 04/27/16 03:10 Blood Gas Puncture Site RT RADIAL Blood Gas Patient Temperature 98.6 Blood Gas HCO3 23 mmol/L (22-26) Blood Gas Base Excess -0.4 mmol/L (-2-2) Blood Gas Oxygen Saturation 97 % (90-100) Arterial Blood pH 7.43 (7.380-7.420) Arterial Blood Partial 36 mmHg (38-42) Pressure CO2 Arterial Blood Partial 127 mmHg Pressure O2 (61-120) Arterial Blood Oxygen Content 12.8 Vol % (12.0-20.0) Arterial Blood 1.2 % (0-4) Carboxyhemoglobin Arterial Blood Methemoglobin 0.6 % (0-2) Blood Gas Hemoglobin 9.2 G/DL (12.0-16.0) Oxygen Delivery Device VENTILATOR Blood Gas Ventilator Setting AC 20/600/5PEEP Blood Gas Inspired Oxygen 35 % Imaging Last 24 hours Impressions Chest X-Ray 04/27/16 0600 Signed Impressions: Service Date/Time: Wednesday, April 27, 2016 05:01 - CONCLUSION: 1. Left lower lobe atelectasis versus pneumonia. There has been no significant change when compared to the prior exam. Dakotah Martinez MD Exam VENTURE CAPITAL ANALYST With sedation decrease patient's white count and following commands and therefore we'll try to wean off the ventilator at this point Patient still has a ICP bolt is doing well and the ICPs remain around 10-12 mmHg Hemodynamic/Cardiac Hemodynamically intact does not require any vasopressors anymore Pulmonary/Respiratory Patient throughout the several organisms and is currently on antibiotics as per infectious disease Assessment and Plan Plan Will wean as tolerated In the face of the fact that patient is neurologically very much improving and tolerating CPAP as well as following commands at this point I'm postponing tracheostomy and hopefully patient will not need one Attestation The exam, history, and the medical decision-making described in the above note were completed with the assistance of the mid-level provider. I reviewed and agree with the findings presented. I attest that I had a [id number] encounter with the patient on the same day, and personally performed and documented my assessment and findings in the medical record. Critical care time 35 minutes. Catarina Nguyen MD Apr 27, 2016 12:15
[2016-04-28] VITALS (14 sets, daily range): BP systolic 139–163; BP diastolic 76–93; PULSE 89–117; RESP 20–34; TEMP 98.7–100; O2SAT 95–100
[2016-04-28] MEDS: PIPERACIL-TAZO 3.375 GM PREMIX 50 ML IV SCH ×4 (01:49→20:16)
[2016-04-28] MEDS: PROPOFOL 1000 MG/100 ML INJ 100 ML IV SCH ×2 (03:13→06:19)
[2016-04-28] MEDS: CHLORHEXIDINE GLUCONATE 2 % 1 PACK (2 CLOTHS) TOP SCH (04:00)
[2016-04-28] MEDS: METOPROLOL TARTRATE 5 MG/5 ML VIAL IV PUSH SCH ×2 (04:00→09:09)
[2016-04-28 04:56] LABS: AUTOMATED NEUTROPHIL # 17.2 TH/MM3 (1.8-7.7); BASOPHIL # 0.1 TH/MM3 (0-0.2); BASOPHIL % 0.5 % (0.0-2.0); EOSINOPHIL % 4.6 % (0.0-4.0); HEMATOCRIT 26.7 % (39.0-51.0); HEMO FLAGS DIFF FINAL; LYMPH % 10.2 % (9.0-44.0); LYMPHOCYTE # 2.2 TH/MM3 (1.0-4.8); MEAN CELL VOLUME 88.7 FL (80.0-100.0); MEAN CORPUSCULAR HEMOGLOBIN 29.6 PG (27.0-34.0); MEAN CORPUSCULAR HGB CONC 33.4 % (32.0-36.0); MONO % 5.5 % (0.0-8.0); NEUT % 79.2 % (16.0-70.0); PLATELET COUNT 552 TH/MM3 (150-450); RED BLOOD COUNT 3.02 MIL/MM3 (4.50-5.90); RED CELL DISTRIBUTION WIDTH 13.7 % (11.6-17.2); WHITE BLOOD COUNT 21.7 TH/MM3 (4.0-11.0)
[2016-04-28] MEDS: PHARMACY ORDERED LAB XX ONE ×2 (05:18→05:45)
[2016-04-28 05:19] LABS: ALT (GPT) 64 U/L (12-78); ANION GAP 9 MEQ/L (5-15); AST (GOT) 43 U/L (15-37); BICARBONATE 26.2 MEQ/L (21.0-32.0); BLOOD UREA NITROGEN 8 MG/DL (7-18); CHLORIDE 108 MEQ/L (98-107); GLOMERULAR FILTRATION RATE 161 ML/MIN (>89); MAGNESIUM 2.2 MG/DL (1.5-2.5); POTASSIUM 3.5 MEQ/L (3.5-5.1); SODIUM (NA) 143 MEQ/L (136-145)
[2016-04-28 05:22] LABS: ALKALINE PHOSPHATASE 163 U/L (45-117); TOTAL BILIRUBIN ADULT 0.6 MG/DL (0.2-1.0)
[2016-04-28] MEDS: FOSPHENYTOIN SODIUM 100 MG PE/2 ML VIAL IV SCH ×3 (05:51→21:23)
[2016-04-28] MEDS: METOCLOPRAMIDE HCL 10 MG/2 ML VIAL IV PUSH SCH ×3 (05:51→21:20)
--- NOTE | 2016-04-28 06:03 | RADRPT ---
EXAM DATE/TIME: 04/28/2016 04:58 [facility] COMPARISON: CHEST SINGLE AP, April 27, 2016, 5:01. INDICATIONS : Shortness of breath. MEDICAL HISTORY : None. SURGICAL HISTORY : None. ENCOUNTER: Subsequent ACUITY: 2 weeks PAIN SCORE: Non-responsive. LOCATION: Bilateral chest FINDINGS: The cardiac silhouette is enlarged in transverse diameter. There is left lower lobe atelectasis versu s pneumonia. Support lines and tubes are in satisfactory position. CONCLUSION: 1. Cardiomegaly 2. Left lower lobe atelectasis versus pneumonia. There has been no significant change when compared to the prior exam. Dakotah Martinez MD on April 28, 2016 at 6:00 Board Certified Radiologist. This report was verified electronically.
[2016-04-28] MEDS: VANCOMYCIN INJ 1,800 MG in SODIUM CHLORID 0.9% 500 ML INJ 500 ML IV SCH ×2 (06:20→14:03)
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
[2016-04-28] MEDS: CHLORHEXIDINE 0.12% (ORAL KIT) 15 ML CUP MT SCH ×2 (08:00→20:00)
[2016-04-28] MEDS: LACTULOSE SYRUP 20 GM/30 ML CUP PO SCH (08:50)
[2016-04-28] MEDS: SODIUM CHLORIDE 0.9% FLUSH 5 ML FLUSH IVF SCH ×2 (08:50→20:17)
[2016-04-28] MEDS: DOCUSATE SODIUM 50 MG/SENNA 8.6 MG TAB PO SCH ×2 (08:50→21:00)
[2016-04-28] MEDS: FAMOTIDINE 20 MG TAB PO SCH ×2 (08:50→20:17)
[2016-04-28] MEDS: levETIRAcetam INJ 500 MG in SODIUM CHLORIDE 0.9% INJ 100 ML IV SCH ×2 (08:50→20:17)
[2016-04-28] MEDS: ARTIFICIAL TEARS OPTH OINT 3.5 APPLIC/3.5 GM TUBO EACH EYE SCH ×2 (09:00→20:18)
[2016-04-28] MEDS: BISACODYL 10 MG SUPP RECTAL SCH (09:00)
[2016-04-28] MEDS: ENOXAPARIN SODIUM 40 MG/0.4 ML SYRINGE SQ SCH (11:41)
[2016-04-28] MEDS: hydrALAZINE HCL 20 MG/ML VIAL IV PUSH PRN ×2 (11:41→15:37)
[2016-04-28] MEDS: 3% SALINE INJ 500 ML IV SCH (11:57)
[2016-04-28] MEDS: ACETAMINOPHEN 325 MG TAB PO PRN ×2 (12:35→18:15)
--- NOTE | 2016-04-28 12:52 | HHI.CCPN ---
Subjective 24 Hour Review/Hospital Course 04/15/[address] is stable, he is mentating normally today, postconcussive 04/17/16 Patient with intracranial bleed mainly subdural and then some intraparenchymal on the right Repeat CAT scan shows some more shift however neurologic status stable and patient is fully awake and alert No lateralization Fairly somnolent but able to eat and drink without assistance Lab studies reveal declining sodium level and mild hyponatremia which is associated with increased complications in this situation therefore sodium will be brought up by infusional 23% saline about 60 cc and also we will start 3% saline via central line 04/19/2016 Patient is status post decompressive right frontoparietal craniectomy for large expanding subdural hematoma Patient intubated and ventilated Remains sedated on propofol and fentanyl 04/20/16 Patient remains intubated and ventilated and heavily sedated in order to keep ICP within physiologic range Episode off increased ICP middle of the night and this was successfully treated with addition of Versed as the sedative agents 04/21/16 Status post right craniectomy Patient's been stable throughout last 24 hours and ICPs remain in 2-6 mmHg range 04/22/16 Patient been stable for last 24 hours Brain swelling appears to have some decreased some and ICPs have been ranging 6- 12 for the last 24 hours Patient had 1 episode where the ICPs went over 20 and had to be managed with mannitol 04/23/2016 Patient doing better in the last 24 hours without increases in ICP since last night. Today with lightening up of sedation patient started to wake up but still cannot protect upper airway and does not follow commands In face of improving neurologic status the tracheostomy has been postponed 04/24/2016 Patient has been allowed to wake up today is moving all 4 extremities tolerating CPAP ICP has been manageable and within range Patient has a left lower lobe infiltrate consistent with a pneumonia or atelectasis and has grown staph aureus and gram-negative rods will start him on antibiotics Patient has aspirated at the time of injury and this is the result of the same 04/25/16 No change in neurologic status On sedation indication patient opens eyes follows commands and tracks Moves all 4 extremities Unfortunately patient is not able to tolerate weaning at this time and therefore cannot be extubated with the secure protect the airway In face of improved neurologic status I will postpone tracheostomy abated then patient may not need it at all 04/26/16 Neurologically patient is gradually improving when the Precedex removed patient is following commands opens eyes tracks and can communicate The respiratory function is gradually improving Patient still has ventriculostomy and therefore will not extubate him while he has ventriculostomy in place Once the patient doesn't need ventriculostomy then that would be good time to extubate patient 04/27/2016 ICPs under control Will manage gradually patient by weaning the ventilator and from the vent considering the patient is waking up and following commands when sedation decreased as long as the ICPs do not rise beyond physiologic range 04/28/16 ICPs are controlled On sedation decreased patient is awake alert oriented and following commands Pulmonary function is greatly improved To be extubated today Objective Vital Signs Date Time Temp Pulse Resp B/P Pulse Ox O2 Delivery O2 Flow Rate FiO2 04/28/16 12:00 117 04/28/16 12:00 100.0 21 163/76 98 04/28/16 10:25 Nasal Cannula 3 04/28/16 08:44 35 Intake and Output 04/27/16 04/27/16 04/28/16 08:00 16:00 00:00 Intake Total 1632 ml 1638 ml 1997 ml Output Total 905.0 ml 3992.0 ml 1454 ml Balance 727.0 ml -2354.0 ml 543 ml Result Diagram: 04/28/16 0435 04/28/16 0435 Imaging Last 24 hours Impressions Chest X-Ray 04/28/16 0600 Signed Impressions: Service Date/Time: Thursday, April 28, 2016 04:58 - CONCLUSION: 1. Cardiomegaly 2. Left lower lobe atelectasis versus pneumonia. There has been no significant change when compared to the prior exam. Dakotah Martinez MD Exam GEOGRAPHICAL HISTORIAN Patient is greatly improved neurologic function and ICPs remain low When sedation is decreased patient is awake alert oriented following commands tracking and communicating with eyes No lateralization noted Hemodynamic/Cardiac Hemodynamically stable Pulmonary/Respiratory Bilateral good breath sounds and good inspiratory effort Normal PO2 FiO2 gradient Extubate the patient today Abdomen/GI Nutrition Abdomen is soft Metabolic/Acid-Base Good Assessment and Plan Plan Will wean as tolerated In the face of the fact that patient is neurologically very much improving and tolerating CPAP as well as following commands at this point I'm postponing tracheostomy and hopefully patient will not need one Attestation The exam, history, and the medical decision-making described in the above note were completed with the assistance of the mid-level provider. I reviewed and agree with the findings presented. I attest that I had a [id number] encounter with the patient on the same day, and personally performed and documented my assessment and findings in the medical record. Critical care time 40 minutes. Catarina Nguyen MD Apr 28, 2016 12:52
[2016-04-28] MEDS ORDERED: LACTULOSE SYRUP 20 GM/30 ML CUP PO PRN (14:00)
[2016-04-28] MEDS ORDERED: BISACODYL 10 MG SUPP RECTAL PRN (14:00)
[2016-04-28] MEDS ORDERED: MEPERIDINE HCL 25 MG/ML VIAL IV ONE (14:15)
[2016-04-28] MEDS: METOPROLOL TARTRATE 25 MG TAB PO SCH ×2 (15:34→20:17)
[2016-04-28] MEDS: VANCOMYCIN INJ 1,900 MG in SODIUM CHLORID 0.9% 500 ML INJ 500 ML IV SCH (21:21)
[2016-04-28] MEDS: ACETAMINOPHEN/HYDROcodone 325 MG/5 MG TAB PO PRN (21:48)
[2016-04-29] VITALS (10 sets, daily range): BP systolic 141–165; BP diastolic 81–103; PULSE 85–112; RESP 13–34; TEMP 98.2–100.7; O2SAT 96–100
[2016-04-29] MEDS: PIPERACIL-TAZO 3.375 GM PREMIX 50 ML IV SCH ×4 (01:00→20:55)
[2016-04-29] MEDS: ACETAMINOPHEN/HYDROcodone 325 MG/5 MG TAB PO PRN ×2 (01:45→20:54)
[2016-04-29] MEDS: CHLORHEXIDINE GLUCONATE 2 % 1 PACK (2 CLOTHS) TOP SCH (04:00)
[2016-04-29 05:09] LABS: AUTOMATED NEUTROPHIL # 10.4 TH/MM3 (1.8-7.7); BASOPHIL # 0.1 TH/MM3 (0-0.2); BASOPHIL % 0.6 % (0.0-2.0); EOSINOPHIL # 0.5 TH/MM3 (0-0.4); EOSINOPHIL % 3.8 % (0.0-4.0); HEMATOCRIT 27.7 % (39.0-51.0); HEMO FLAGS DIFF FINAL; LYMPH % 13.9 % (9.0-44.0); LYMPHOCYTE # 1.9 TH/MM3 (1.0-4.8); MEAN CORPUSCULAR HEMOGLOBIN 30.2 PG (27.0-34.0); MEAN CORPUSCULAR HGB CONC 34.3 % (32.0-36.0); MONO % 7.2 % (0.0-8.0); NEUT % 74.5 % (16.0-70.0); PLATELET COUNT 652 TH/MM3 (150-450); RED BLOOD COUNT 3.15 MIL/MM3 (4.50-5.90); RED CELL DISTRIBUTION WIDTH 13.8 % (11.6-17.2)
[2016-04-29] MEDS: VANCOMYCIN INJ 1,900 MG in SODIUM CHLORID 0.9% 500 ML INJ 500 ML IV SCH ×3 (05:18→23:33)
[2016-04-29] MEDS: METOCLOPRAMIDE HCL 10 MG/2 ML VIAL IV PUSH SCH ×3 (05:18→22:00)
[2016-04-29] MEDS: FOSPHENYTOIN SODIUM 100 MG PE/2 ML VIAL IV SCH ×3 (05:19→23:11)
[2016-04-29 05:38] LABS: ANION GAP 10 MEQ/L (5-15); AST (GOT) 44 U/L (15-37); BICARBONATE 25.5 MEQ/L (21.0-32.0); BLOOD UREA NITROGEN 8 MG/DL (7-18); CHLORIDE 107 MEQ/L (98-107); GLOMERULAR FILTRATION RATE 164 ML/MIN (>89); MAGNESIUM 2.3 MG/DL (1.5-2.5); POTASSIUM 3.2 MEQ/L (3.5-5.1); SODIUM (NA) 142 MEQ/L (136-145)
[2016-04-29 05:41] LABS: ALKALINE PHOSPHATASE 185 U/L (45-117); ALT (GPT) 80 U/L (12-78); TOTAL BILIRUBIN ADULT 0.6 MG/DL (0.2-1.0)
[2016-04-29] MEDS: CHLORHEXIDINE 0.12% (ORAL KIT) 15 ML CUP MT SCH ×2 (08:00→20:55)
[2016-04-29] MEDS: METOPROLOL TARTRATE 25 MG TAB PO SCH ×2 (08:01→20:54)
[2016-04-29] MEDS: FAMOTIDINE 20 MG TAB PO SCH ×2 (08:01→20:55)
[2016-04-29] MEDS: SODIUM CHLORIDE 0.9% FLUSH 5 ML FLUSH IVF SCH ×2 (08:01→20:55)
[2016-04-29] MEDS: levETIRAcetam INJ 500 MG in SODIUM CHLORIDE 0.9% INJ 100 ML IV SCH ×2 (08:01→20:55)
[2016-04-29] MEDS: DOCUSATE SODIUM 50 MG/SENNA 8.6 MG TAB PO SCH ×2 (08:01→20:56)
[2016-04-29] MEDS: ARTIFICIAL TEARS OPTH OINT 3.5 APPLIC/3.5 GM TUBO EACH EYE SCH ×2 (08:01→20:55)
[2016-04-29] MEDS: POTASSIUM CHLOR 40 MEQ PREMIX 100 ML IV PRN ×2 (09:02→11:05)
[2016-04-29] MEDS: ENOXAPARIN SODIUM 40 MG/0.4 ML SYRINGE SQ SCH (11:29)
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
--- NOTE | 2016-04-29 15:26 | HHI.IDPN ---
Subjective Subjective Remarks pt is much better he is extubated still low grade fevers He moves all 4 extremeties follows commands and speaks with family memebers in few words at a time Antibiotics zosyn vancomycin Allergies: Coded Allergies: No Known Allergies (Unverified , 04/14/16) Objective . Vital Signs Date Time Temp Pulse Resp B/P Pulse Ox O2 Delivery O2 Flow Rate FiO2 04/29/16 12:00 100.7 90 13 146/94 97 04/29/16 08:00 98.6 100 22 163/103 99 04/29/16 07:36 96 21 04/29/16 07:00 90 04/29/16 07:00 96 Room Air 04/29/16 04:00 98.2 112 23 141/82 100 04/29/16 02:45 22 04/29/16 00:00 99.8 103 34 142/90 98 04/28/16 23:00 107 04/28/16 20:12 100 21 04/28/16 20:00 99.1 117 34 155/80 100 04/28/16 19:00 97 04/28/16 16:00 98.7 117 20 162/87 97 04/28/16 16:00 117 04/28/16 04/28/16 04/29/16 15:00 23:00 07:00 Intake Total 1015 ml 1138 ml 567 ml Output Total 1450 ml 2925 ml 850 ml Balance -435 ml -1787 ml -283 ml Intake Oral 220 ml IV Total 775 ml 918 ml 567 ml Tube Feeding 240 ml Output Urine Total 1450 ml 2925 ml 850 ml Tube Feeding Residual Discard 0 ml Drainage Total 0 ml 0 ml 0 ml # Bowel Movements 4 2 1 . Laboratory Tests Test 04/28/16 04/29/16 04:35 04:45 White Blood Count 21.7 TH/MM3 14.0 TH/MM3 Red Blood Count 3.02 MIL/MM3 3.15 MIL/MM3 Hemoglobin 8.9 GM/DL 9.5 GM/DL Hematocrit 26.7 % 27.7 % Mean Corpuscular Volume 88.7 FL 88.0 FL Mean Corpuscular Hemoglobin 29.6 PG 30.2 PG Mean Corpuscular Hemoglobin 33.4 % 34.3 % Concent Red Cell Distribution Width 13.7 % 13.8 % Platelet Count 552 TH/MM3 652 TH/MM3 Mean Platelet Volume 7.6 FL 7.5 FL Neutrophils (%) (Auto) 79.2 % 74.5 % Lymphocytes (%) (Auto) 10.2 % 13.9 % Monocytes (%) (Auto) 5.5 % 7.2 % Eosinophils (%) (Auto) 4.6 % 3.8 % Basophils (%) (Auto) 0.5 % 0.6 % Neutrophils # (Auto) 17.2 TH/MM3 10.4 TH/MM3 Lymphocytes # (Auto) 2.2 TH/MM3 1.9 TH/MM3 Monocytes # (Auto) 1.2 TH/MM3 1.0 TH/MM3 Eosinophils # (Auto) 1.0 TH/MM3 0.5 TH/MM3 Basophils # (Auto) 0.1 TH/MM3 0.1 TH/MM3 CBC Comment DIFF FINAL DIFF FINAL Differential Comment Laboratory Tests Test 04/27/16 04/27/16 04/28/16 04/29/16 17:00 20:40 04:35 04:45 Sodium Level 142 MEQ/L 140 MEQ/L 143 MEQ/L 142 MEQ/L Potassium Level 3.5 MEQ/L 3.2 MEQ/L Chloride Level 108 MEQ/L 107 MEQ/L Carbon Dioxide Level 26.2 MEQ/L 25.5 MEQ/L Anion Gap 9 MEQ/L 10 MEQ/L Blood Urea Nitrogen 8 MG/DL 8 MG/DL Creatinine 0.62 MG/DL 0.61 MG/DL Estimat Glomerular Filtration 161 ML/MIN 164 ML/MIN Rate Random Glucose 103 MG/DL 94 MG/DL Calcium Level 8.3 MG/DL 8.8 MG/DL Phosphorus Level 3.3 MG/DL 3.2 MG/DL Magnesium Level 2.2 MG/DL 2.3 MG/DL Total Bilirubin 0.6 MG/DL 0.6 MG/DL Aspartate Amino Transf 43 U/L 44 U/L (AST/SGOT) Alanine Aminotransferase 64 U/L 80 U/L (ALT/SGPT) Alkaline Phosphatase 163 U/L 185 U/L Total Protein 7.0 GM/DL 7.8 GM/DL Albumin 2.1 GM/DL 2.6 GM/DL Imaging Last Impressions Chest X-Ray 04/28/16 0600 Signed Impressions: Service Date/Time: Thursday, April 28, 2016 04:58 - CONCLUSION: 1. Cardiomegaly 2. Left lower lobe atelectasis versus pneumonia. There has been no significant change when compared to the prior exam. Dakotah Martinez MD Head CT 04/23/16 0600 Signed Impressions: Service Date/Time: Saturday, April 23, 2016 04:23 - CONCLUSION: 1. Evolving right temporal lobe contusion with decreasing mass effect and midline shift 2. No acute hemorrhage is identified Dakotah Martinez MD Thoracic Spine CT [id number]/14/[id number] Signed Impressions: Service Date/Time: Thursday, April 14, 2016 18:37 - CONCLUSION: Normal examination. Ayush Rivers MD Lumbar Spine CT [id number]/14/[id number] Signed Impressions: Service Date/Time: Thursday, April 14, 2016 18:37 - CONCLUSION: Normal examination for a patient of this age. Ayush Rivers MD Pelvis X-Ray [id number]/14/[id number] Signed Impressions: Service Date/Time: Thursday, April 14, 2016 18:03 - CONCLUSION: Normal examination for a patient of this age. Ayush Rivers MD Chest CT [id number]/14/161737 Signed Impressions: Service Date/Time: Thursday, April 14, 2016 18:40 - CONCLUSION: Normal examination. Ayush Rivers MD Cervical Spine CT [id number] Signed Impressions: Service Date/Time: Thursday, April 14, 2016 18:36 - CONCLUSION: Normal examination. Ayush Rivers MD Abdomen/Pelvis CT [id number]/14/161737 Signed Impressions: Service Date/Time: Thursday, April 14, 2016 18:40 - CONCLUSION: Normal examination. Ayush Rivers MD Physical Exam CONSTITUTIONAL/GENERAL: This is an obese young patient, in no apparent distress. TUBES/LINES/DRAINS: SKIN: No jaundice, rashes, or lesions. Ecchymoses on upper extremities. No wounds seen anteriorly. Skin temperature appropriate. + diaphoretic. HEAD: Edematous L side ventric in place with clear CSF R parietal incision is dry and clean, wang in. Normocephalic. EYES: Pupils equal and round and reactive. Extraocular motions intact. No scleral icterus. No injection or drainage. Fundi not examined. ENT: Nose without bleeding or purulent drainage. Orally intubated NECK: Trachea midline. Supple, nontender. CARDIOVASCULAR: Regular rate and rhythm without murmurs, gallops, or rubs. No JVD. Peripheral pulses symmetric. RESPIRATORY/CHEST: Symmetric, unlabored respirations. Clear to auscultation. Breath sounds equal bilaterally. No wheezes, rales, or rhonchi. GASTROINTESTINAL: Abdomen soft, non-tender, nondistended. No hepato-splenomegaly , or palpable masses. No guarding. Bowel sounds present. GENITOURINARY: Without palpable bladder distension. Robles catheter in place with clear yellow urine MUSCULOSKELETAL: Extremities without clubbing, cyanosis, + mild edema. No joint tenderness or effusion noted. No calf tenderness. No mottling or clubbing. LYMPHATICS: No palpable cervical or supraclavicular adenopathy. NEUROLOGICAL: asleep; earlier FC and Assessment & Plan Remarks PREPARER SAMPLES AND REPAIRS trauma Acute VDRF n- resolved; extubated Prehospial aspiration PNA PNA, MSSA, Enterobacter and GAS Severe leukocytosis - slowly improving Low grade fever - persistent - cont zosyn -dc vancomycin - consider CSF clx if cont to have persistent fever, leukocytosis - fu WBC - fu temps Discussed Condition With family @ b/s Hermila Rivas MD Apr 29, 2016 15:26
--- NOTE | 2016-04-29 19:17 | HHI.CCPN ---
Subjective 24 Hour Review/Hospital Course 04/15/[address] is stable, he is mentating normally today, postconcussive 04/17/16 Patient with intracranial bleed mainly subdural and then some intraparenchymal on the right Repeat CAT scan shows some more shift however neurologic status stable and patient is fully awake and alert No lateralization Fairly somnolent but able to eat and drink without assistance Lab studies reveal declining sodium level and mild hyponatremia which is associated with increased complications in this situation therefore sodium will be brought up by infusional 23% saline about 60 cc and also we will start 3% saline via central line 04/19/2016 Patient is status post decompressive right frontoparietal craniectomy for large expanding subdural hematoma Patient intubated and ventilated Remains sedated on propofol and fentanyl 04/20/16 Patient remains intubated and ventilated and heavily sedated in order to keep ICP within physiologic range Episode off increased ICP middle of the night and this was successfully treated with addition of Versed as the sedative agents 04/21/16 Status post right craniectomy Patient's been stable throughout last 24 hours and ICPs remain in 2-6 mmHg range 04/22/16 Patient been stable for last 24 hours Brain swelling appears to have some decreased some and ICPs have been ranging 6- 12 for the last 24 hours Patient had 1 episode where the ICPs went over 20 and had to be managed with mannitol 04/23/2016 Patient doing better in the last 24 hours without increases in ICP since last night. Today with lightening up of sedation patient started to wake up but still cannot protect upper airway and does not follow commands In face of improving neurologic status the tracheostomy has been postponed 04/24/2016 Patient has been allowed to wake up today is moving all 4 extremities tolerating CPAP ICP has been manageable and within range Patient has a left lower lobe infiltrate consistent with a pneumonia or atelectasis and has grown staph aureus and gram-negative rods will start him on antibiotics Patient has aspirated at the time of injury and this is the result of the same 04/25/16 No change in neurologic status On sedation indication patient opens eyes follows commands and tracks Moves all 4 extremities Unfortunately patient is not able to tolerate weaning at this time and therefore cannot be extubated with the secure protect the airway In face of improved neurologic status I will postpone tracheostomy abated then patient may not need it at all 04/26/16 Neurologically patient is gradually improving when the Precedex removed patient is following commands opens eyes tracks and can communicate The respiratory function is gradually improving Patient still has ventriculostomy and therefore will not extubate him while he has ventriculostomy in place Once the patient doesn't need ventriculostomy then that would be good time to extubate patient 04/27/2016 ICPs under control Will manage gradually patient by weaning the ventilator and from the vent considering the patient is waking up and following commands when sedation decreased as long as the ICPs do not rise beyond physiologic range 04/28/16 ICPs are controlled On sedation decreased patient is awake alert oriented and following commands Pulmonary function is greatly improved To be extubated today 04/29/16 Patient extubated yesterday doing very well in the last 24 hours Alert oriented in time space and person but slightly slow in response Pupils equal reactive external muscles remain intact Patient is good bilateral breath sounds Him anatomy clearly he remained stable Abdomen is soft and patient is to undergo evaluation by speech therapy as far as a swallowing is concerned and that is intact with placed on diet All things equal patient will be transferred out of the intensive care unit the soon as the ICP ventriculostomy is removed Objective Vital Signs Date Time Temp Pulse Resp B/P Pulse Ox O2 Delivery O2 Flow Rate FiO2 04/29/16 16:00 99.2 93 24 142/81 97 04/29/16 07:36 21 04/29/16 07:00 Room Air 04/28/16 10:25 3 Intake and Output 04/28/16 04/28/16 04/29/16 08:00 16:00 00:00 Intake Total 1735 ml 1015 ml 1138 ml Output Total 1129.0 ml 1450 ml 2925 ml Balance 606.0 ml -435 ml -1787 ml Result Diagram: 04/29/16 0445 04/29/16 0445 Assessment and Plan Plan Will wean as tolerated In the face of the fact that patient is neurologically very much improving and tolerating CPAP as well as following commands at this point I'm postponing tracheostomy and hopefully patient will not need one Attestation The exam, history, and the medical decision-making described in the above note were completed with the assistance of the mid-level provider. I reviewed and agree with the findings presented. I attest that I had a [id number] encounter with the patient on the same day, and personally performed and documented my assessment and findings in the medical record. Critical care time 35 minutes. Catarina Nguyen MD Apr 29, 2016 19:16
[2016-04-29] MEDS: VANCOMYCIN 1,500 MG/NS 500 ML IV SCH ×2 (22:30)
[2016-04-30] VITALS (9 sets, daily range): BP systolic 136–157; BP diastolic 76–99; PULSE 78–100; RESP 12–24; TEMP 98.6–100.3; O2SAT 94–100
[2016-04-30] MEDS: ACETAMINOPHEN/HYDROcodone 325 MG/5 MG TAB PO PRN ×2 (01:27→21:55)
[2016-04-30] MEDS: PIPERACIL-TAZO 3.375 GM PREMIX 50 ML IV SCH ×4 (02:33→20:32)
[2016-04-30] MEDS: CHLORHEXIDINE GLUCONATE 2 % 1 PACK (2 CLOTHS) TOP SCH (02:39)
[2016-04-30] MEDS ORDERED: PHARMACY ORDERED LAB XX ONE (05:45)
[2016-04-30 05:49] LABS: HEMATOCRIT 27.8 % (39.0-51.0); MEAN CELL VOLUME 88.1 FL (80.0-100.0); MEAN CORPUSCULAR HEMOGLOBIN 29.8 PG (27.0-34.0); MEAN CORPUSCULAR HGB CONC 33.9 % (32.0-36.0); PLATELET COUNT 634 TH/MM3 (150-450); RED BLOOD COUNT 3.16 MIL/MM3 (4.50-5.90); RED CELL DISTRIBUTION WIDTH 13.9 % (11.6-17.2); REVIEW FLAG FINAL; WHITE BLOOD COUNT 12.5 TH/MM3 (4.0-11.0)
[2016-04-30] MEDS: METOCLOPRAMIDE HCL 10 MG/2 ML VIAL IV PUSH SCH ×3 (06:00→21:56)
[2016-04-30 06:17] LABS: BICARBONATE 24.3 MEQ/L (21.0-32.0); POTASSIUM 3.1 MEQ/L (3.5-5.1)
[2016-04-30] MEDS: FOSPHENYTOIN SODIUM 100 MG PE/2 ML VIAL IV SCH ×3 (06:20→22:06)
[2016-04-30] MEDS: VANCOMYCIN INJ 1,900 MG in SODIUM CHLORID 0.9% 500 ML INJ 500 ML IV SCH (07:34)
[2016-04-30] MEDS: CHLORHEXIDINE 0.12% (ORAL KIT) 15 ML CUP MT SCH (08:00)
[2016-04-30] MEDS: FAMOTIDINE 20 MG TAB PO SCH ×2 (08:54→21:54)
[2016-04-30] MEDS: METOPROLOL TARTRATE 25 MG TAB PO SCH ×2 (08:54→21:54)
[2016-04-30] MEDS: ARTIFICIAL TEARS OPTH OINT 3.5 APPLIC/3.5 GM TUBO EACH EYE SCH ×2 (08:54→20:32)
[2016-04-30] MEDS: SODIUM CHLORIDE 0.9% FLUSH 5 ML FLUSH IVF SCH ×2 (08:54→20:32)
[2016-04-30] MEDS: levETIRAcetam INJ 500 MG in SODIUM CHLORIDE 0.9% INJ 100 ML IV SCH ×2 (08:54→21:54)
[2016-04-30] MEDS: DOCUSATE SODIUM 50 MG/SENNA 8.6 MG TAB PO SCH ×2 (08:55→20:32)
[2016-04-30] MEDS: ENOXAPARIN SODIUM 40 MG/0.4 ML SYRINGE SQ SCH (12:16)
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
[2016-04-30] MEDS: VANCOMYCIN 1,500 MG/NS 500 ML IV SCH ×2 (13:58)
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
[2016-04-30] MEDS ORDERED: POTASSIUM CHLORIDE 20 MEQ CONTROLLED RELEASE TAB PO ONE (18:30)
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
[2016-05-01] VITALS (8 sets, daily range): BP systolic 135–145; BP diastolic 74–96; PULSE 82–100; RESP 13–20; TEMP 97.8–98.9; O2SAT 93–100
[2016-05-01] MEDS: PIPERACIL-TAZO 3.375 GM PREMIX 50 ML IV SCH ×4 (03:18→20:10)
[2016-05-01] MEDS: CHLORHEXIDINE GLUCONATE 2 % 1 PACK (2 CLOTHS) TOP SCH ×2 (03:19→20:22)
--- NOTE | 2016-05-01 05:13 | RADRPT ---
EXAM DATE/TIME: 05/01/2016 04:30 [facility] COMPARISON: CT BRAIN W/O CONTRAST, April 23, 2016, 4:23. INDICATIONS : Follow-up hemmorhage RADIATION DOSE: 49.69 CTDIvol (mGy) MEDICAL HISTORY : None SURGICAL HISTORY : Craniotomy. ENCOUNTER: Subsequent ACUITY: 2 days PAIN SCALE: 0/10 LOCATION: cranial TECHNIQUE: Multiple contiguous axial images were obtained of the head. Using automated exposure control and adj ustment of the mA and/or kV according to patient size, radiation dose was kept as low as reasonably a chievable to obtain optimal diagnostic quality images. FINDINGS: CEREBRUM: The patient is status post right decompressive craniotomy. The previously seen ventriculostomy tube h as been removed. There is persistent low density in the right temporal lobe likely related to contusi on or infarction. Numerous hemorrhage are seen. The basal cisterns are open. The ventricles are yaneth l for age. POSTERIOR FOSSA: The cerebellum and brainstem are intact. The 4th ventricle is midline. The cerebellopontine angle i s unremarkable. EXTRACRANIAL: The visualized portion of the orbits is intact. SKULL: The calvaria is intact. No evidence of skull fracture. CONCLUSION: 1. Status post right decompressive craniotomy. 2. Persistent low density in the mid right temporal lobe likely from contusion or infarction. Isaac Garcia MD on May 01, 2016 at 5:09 Board Certified Radiologist. This report was verified electronically.
[2016-05-01 05:16] LABS: BASOPHIL # 0.2 TH/MM3 (0-0.2); BASOPHIL % 1.3 % (0.0-2.0); EOSINOPHIL # 0.9 TH/MM3 (0-0.4); EOSINOPHIL % 6.3 % (0.0-4.0); HEMO FLAGS DIFF FINAL; LYMPH % 18.8 % (9.0-44.0); LYMPHOCYTE # 2.6 TH/MM3 (1.0-4.8); MEAN CELL VOLUME 87.7 FL (80.0-100.0); MEAN CORPUSCULAR HEMOGLOBIN 30.1 PG (27.0-34.0); MEAN CORPUSCULAR HGB CONC 34.4 % (32.0-36.0); MONO % 8.9 % (0.0-8.0); NEUT % 64.7 % (16.0-70.0); PLATELET COUNT 793 TH/MM3 (150-450); RED BLOOD COUNT 3.54 MIL/MM3 (4.50-5.90); WHITE BLOOD COUNT 13.9 TH/MM3 (4.0-11.0)
[2016-05-01 05:39] LABS: BICARBONATE 25.1 MEQ/L (21.0-32.0); POTASSIUM 3.6 MEQ/L (3.5-5.1)
[2016-05-01] MEDS: METOCLOPRAMIDE HCL 10 MG/2 ML VIAL IV PUSH SCH (05:52)
[2016-05-01] MEDS: FOSPHENYTOIN SODIUM 100 MG PE/2 ML VIAL IV SCH ×3 (05:52→22:25)
[2016-05-01] MEDS: VANCOMYCIN 1,500 MG/NS 500 ML IV SCH ×4 (06:22→14:16)
[2016-05-01] MEDS: FAMOTIDINE 20 MG TAB PO SCH ×2 (08:49→20:11)
[2016-05-01] MEDS: levETIRAcetam INJ 500 MG in SODIUM CHLORIDE 0.9% INJ 100 ML IV SCH (08:49)
[2016-05-01] MEDS: METOPROLOL TARTRATE 25 MG TAB PO SCH ×2 (08:49→20:12)
[2016-05-01] MEDS: DOCUSATE SODIUM 50 MG/SENNA 8.6 MG TAB PO SCH ×2 (09:00→20:12)
[2016-05-01] MEDS: SODIUM CHLORIDE 0.9% FLUSH 5 ML FLUSH IVF SCH ×2 (09:00→20:11)
[2016-05-01] MEDS: ARTIFICIAL TEARS OPTH OINT 3.5 APPLIC/3.5 GM TUBO EACH EYE SCH ×2 (09:00→20:10)
[2016-05-01] MEDS: ENOXAPARIN SODIUM 40 MG/0.4 ML SYRINGE SQ SCH (11:57)
[2016-05-01] MEDS ORDERED: PHARMACY ORDERED LAB XX ONE (13:45)
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
[2016-05-01] MEDS: levETIRAcetam 500 MG TAB PO SCH (20:11)
[2016-05-01] MEDS: VANCOMYCIN INJ 1,750 MG in SODIUM CHLORID 0.9% 500 ML INJ 500 ML IV SCH (22:25)
[2016-05-02] VITALS (9 sets, daily range): BP systolic 121–157; BP diastolic 70–87; PULSE 78–100; RESP 16–20; TEMP 96.8–99.1; O2SAT 93–97
[2016-05-02] MEDS: PIPERACIL-TAZO 3.375 GM PREMIX 50 ML IV SCH ×4 (03:34→20:24)
[2016-05-02] MEDS: VANCOMYCIN INJ 1,750 MG in SODIUM CHLORID 0.9% 500 ML INJ 500 ML IV SCH ×3 (06:21→23:39)
[2016-05-02 06:58] LABS: AUTOMATED NEUTROPHIL # 9.8 TH/MM3 (1.8-7.7); BASOPHIL # 0.2 TH/MM3 (0-0.2); BASOPHIL % 1.2 % (0.0-2.0); EOSINOPHIL # 0.5 TH/MM3 (0-0.4); EOSINOPHIL % 3.6 % (0.0-4.0); HEMATOCRIT 29.9 % (39.0-51.0); HEMO FLAGS DIFF FINAL; MEAN CELL VOLUME 87.8 FL (80.0-100.0); MEAN CORPUSCULAR HEMOGLOBIN 30.3 PG (27.0-34.0); MEAN CORPUSCULAR HGB CONC 34.4 % (32.0-36.0); MONO % 8.7 % (0.0-8.0); NEUT % 71.5 % (16.0-70.0); PLATELET COUNT 739 TH/MM3 (150-450); RED CELL DISTRIBUTION WIDTH 14.1 % (11.6-17.2); WHITE BLOOD COUNT 13.6 TH/MM3 (4.0-11.0)
[2016-05-02 07:24] LABS: BICARBONATE 26.2 MEQ/L (21.0-32.0); POTASSIUM 3.5 MEQ/L (3.5-5.1)
[2016-05-02] MEDS: FOSPHENYTOIN INJ 100 MGPE in SODIUM CHLORIDE 0.9% INJ 50 ML IV SCH ×3 (08:17→23:38)
[2016-05-02] MEDS: ARTIFICIAL TEARS OPTH OINT 3.5 APPLIC/3.5 GM TUBO EACH EYE SCH ×2 (09:00→20:25)
[2016-05-02] MEDS: METOPROLOL TARTRATE 25 MG TAB PO SCH ×2 (09:38→20:24)
[2016-05-02] MEDS: DOCUSATE SODIUM 50 MG/SENNA 8.6 MG TAB PO SCH ×2 (09:38→20:24)
[2016-05-02] MEDS: FAMOTIDINE 20 MG TAB PO SCH ×2 (09:38→20:24)
[2016-05-02] MEDS: levETIRAcetam 500 MG TAB PO SCH ×2 (09:38→20:24)
[2016-05-02] MEDS: SODIUM CHLORIDE 0.9% FLUSH 5 ML FLUSH IVF SCH ×2 (09:39→20:24)
[2016-05-02] MEDS: ACETAMINOPHEN/HYDROcodone 325 MG/5 MG TAB PO PRN ×2 (09:46→17:05)
[2016-05-02] MEDS: ACETAMINOPHEN 325 MG TAB PO PRN (09:47)
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
[2016-05-02] MEDS: ENOXAPARIN SODIUM 40 MG/0.4 ML SYRINGE SQ SCH (13:08)
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
[2016-05-02] MEDS ORDERED: PHARMACY ORDERED LAB XX ONE (21:45)
[2016-05-03] VITALS (7 sets, daily range): BP systolic 116–132; BP diastolic 62–77; PULSE 75–99; RESP 18–20; TEMP 97.1–98.8; O2SAT 94–100
[2016-05-03 00:32] LABS: VANCOMYCIN TROUGH 21.9 MCG/ML (5.0-10.0)
[2016-05-03] MEDS: PIPERACIL-TAZO 3.375 GM PREMIX 50 ML IV SCH ×4 (02:49→21:44)
[2016-05-03] MEDS: CHLORHEXIDINE GLUCONATE 2 % 1 PACK (2 CLOTHS) TOP SCH (04:00)
[2016-05-03] MEDS: FOSPHENYTOIN INJ 100 MGPE in SODIUM CHLORIDE 0.9% INJ 50 ML IV SCH ×3 (06:06→21:47)
[2016-05-03] MEDS: FAMOTIDINE 20 MG TAB PO SCH ×2 (08:15→21:45)
[2016-05-03] MEDS: levETIRAcetam 500 MG TAB PO SCH ×2 (08:15→21:45)
[2016-05-03] MEDS: SODIUM CHLORIDE 0.9% FLUSH 5 ML FLUSH IVF SCH ×2 (08:15→21:44)
[2016-05-03] MEDS: DOCUSATE SODIUM 50 MG/SENNA 8.6 MG TAB PO SCH ×2 (08:15→21:45)
[2016-05-03] MEDS: ARTIFICIAL TEARS OPTH OINT 3.5 APPLIC/3.5 GM TUBO EACH EYE SCH ×3 (08:15→21:44)
[2016-05-03] MEDS: METOPROLOL TARTRATE 25 MG TAB PO SCH ×2 (08:16→21:45)
[2016-05-03] MEDS: ACETAMINOPHEN/HYDROcodone 325 MG/5 MG TAB PO PRN ×4 (08:48→21:46)
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
[2016-05-03] MEDS: ENOXAPARIN SODIUM 40 MG/0.4 ML SYRINGE SQ SCH (12:38)
[2016-05-03] MEDS: SODIUM CHLORIDE 0.9% FLUSH 5 ML FLUSH IVF PRN (23:39)
[2016-05-04] VITALS: BP 130/70; PULSE 80; RESP 16; TEMP 97.5; O2SAT 98
[2016-05-04] MEDS: PIPERACIL-TAZO 3.375 GM PREMIX 50 ML IV SCH ×4 (02:04→22:05)
[2016-05-04] MEDS: SODIUM CHLORIDE 0.9% FLUSH 5 ML FLUSH IVF PRN ×3 (02:06→06:15)
[2016-05-04] MEDS: ACETAMINOPHEN/HYDROcodone 325 MG/5 MG TAB PO PRN ×4 (02:46→22:02)
[2016-05-04 03:12] VITALS: BP 121/78; PULSE 83; RESP 17; TEMP 98; O2SAT 97
[2016-05-04] MEDS: CHLORHEXIDINE GLUCONATE 2 % 1 PACK (2 CLOTHS) TOP SCH (03:49)
[2016-05-04] MEDS: FOSPHENYTOIN INJ 100 MGPE in SODIUM CHLORIDE 0.9% INJ 50 ML IV SCH ×3 (06:15→22:04)
[2016-05-04] MEDS: DOCUSATE SODIUM 50 MG/SENNA 8.6 MG TAB PO SCH ×2 (08:16→22:04)
[2016-05-04] MEDS: METOPROLOL TARTRATE 25 MG TAB PO SCH ×2 (08:16→22:02)
[2016-05-04] MEDS: levETIRAcetam 500 MG TAB PO SCH ×2 (08:16→22:04)
[2016-05-04] MEDS: FAMOTIDINE 20 MG TAB PO SCH ×2 (08:16→22:04)
[2016-05-04] MEDS: SODIUM CHLORIDE 0.9% FLUSH 5 ML FLUSH IVF SCH ×2 (08:17→22:05)
[2016-05-04] MEDS: ARTIFICIAL TEARS OPTH OINT 3.5 APPLIC/3.5 GM TUBO EACH EYE SCH ×2 (08:17→22:05)
[2016-05-04 08:21] VITALS: BP 130/75; PULSE 83; RESP 18; TEMP 97; O2SAT 95
[2016-05-04] MEDS ORDERED: INFLUENZA VIRUS VACCINE (QUADRIVALENT) 0.5 ML SYR IM ONE (10:00)
[2016-05-04] MEDS ORDERED: PNEUMOCOCCAL POLYVALENT INJ 25 MCG/0.5 ML SYR IM ONE (10:00)
[2016-05-04 12:20] VITALS: BP 143/74; PULSE 83; RESP 18; TEMP 96.7; O2SAT 98
[2016-05-04] MEDS: ENOXAPARIN SODIUM 40 MG/0.4 ML SYRINGE SQ SCH (13:29)
[2016-05-04 16:00] VITALS: BP 123/64; PULSE 85; RESP 18; TEMP 98.5; O2SAT 95
--- NOTE | 2016-05-04 16:51 | HHI.PR ---
Subjective Subjective Notes OOB in chair with padded helmet in place. No complaints. Family has been assisting OOB. PT reports ataxia with ambulation. Objective Vitals/I&O Vital Signs Date Time Temp Pulse Resp B/P Pulse Ox O2 Delivery O2 Flow Rate FiO2 05/04/16 12:20 96.7 83 18 143/74 98 05/03/16 10:32 21 05/03/16 07:00 Room Air Labs Laboratory Tests Test 05/02/16 05/02/16 06:26 23:45 White Blood Count 13.6 TH/MM3 Red Blood Count 3.40 MIL/MM3 Hemoglobin 10.3 GM/DL Hematocrit 29.9 % Mean Corpuscular Volume 87.8 FL Mean Corpuscular Hemoglobin 30.3 PG Mean Corpuscular Hemoglobin 34.4 % Concent Red Cell Distribution Width 14.1 % Platelet Count 739 TH/MM3 Mean Platelet Volume 7.4 FL Neutrophils (%) (Auto) 71.5 % Lymphocytes (%) (Auto) 15.0 % Monocytes (%) (Auto) 8.7 % Eosinophils (%) (Auto) 3.6 % Basophils (%) (Auto) 1.2 % Neutrophils # (Auto) 9.8 TH/MM3 Lymphocytes # (Auto) 2.0 TH/MM3 Monocytes # (Auto) 1.2 TH/MM3 Eosinophils # (Auto) 0.5 TH/MM3 Basophils # (Auto) 0.2 TH/MM3 CBC Comment DIFF FINAL Differential Comment Sodium Level 141 MEQ/L Potassium Level 3.5 MEQ/L Chloride Level 105 MEQ/L Carbon Dioxide Level 26.2 MEQ/L Anion Gap 10 MEQ/L Blood Urea Nitrogen 9 MG/DL Creatinine 0.97 MG/DL Estimat Glomerular Filtration 96 ML/MIN Rate Random Glucose 106 MG/DL Calcium Level 8.7 MG/DL Vancomycin Level Trough 21.9 MCG/ML Phenytoin (Dilantin) Level 1.9 MCG/ML Radiology Last Impressions Head CT 05/01/16 06 Signed Impressions: Service Date/Time: Sunday, May 01, 2016 04:30 - CONCLUSION: 1. Status post right decompressive craniotomy. 2. Persistent low density in the mid right temporal lobe likely from contusion or infarction. Isaac Garcia MD Chest X-Ray 04/28/16 06 Signed Impressions: Service Date/Time: Thursday, April 28, 2016 04:58 - CONCLUSION: 1. Cardiomegaly 2. Left lower lobe atelectasis versus pneumonia. There has been no significant change when compared to the prior exam. Dakotah Martinez MD Thoracic Spine CT 04/14/161809 Signed Impressions: Service Date/Time: Thursday, April 14, 2016 18:37 - CONCLUSION: Normal examination. Ayush Rivers MD Lumbar Spine CT 04/14/161809 Signed Impressions: Service Date/Time: Thursday, April 14, 2016 18:37 - CONCLUSION: Normal examination for a patient of this age. Ayush Rivers MD Pelvis X-Ray 04/14/161737 Signed Impressions: Service Date/Time: Thursday, April 14, 2016 18:03 - CONCLUSION: Normal examination for a patient of this age. Ayush Rivers MD Chest CT 04/14/161737 Signed Impressions: Service Date/Time: Thursday, April 14, 2016 18:40 - CONCLUSION: Normal examination. Ayush Rivers MD Cervical Spine CT 04/14/161737 Signed Impressions: Service Date/Time: Thursday, April 14, 2016 18:36 - CONCLUSION: Normal examination. Ayush Rivers MD Abdomen/Pelvis CT 04/14/161737 Signed Impressions: Service Date/Time: Thursday, April 14, 2016 18:40 - CONCLUSION: Normal examination. Ayush Rivers MD Narrative Exam GENERAL: 21 year old well-nourished, well developed male sitting OOB in chair with helmet in place. SKIN: Warm and dry. ENT: No nasal bleeding or discharge. Mucous membranes pink and moist. NECK: Trachea midline. No JVD. CARDIOVASCULAR: Regular rate and rhythm. RESPIRATORY: No accessory muscle use. Lungs clear and diminished to auscultation. Breath sounds equal bilaterally. GASTROINTESTINAL: Abdomen soft, non-tender, nondistended. + BS. MUSCULOSKELETAL: Extremities without cyanosis, or edema. No obvious deformities. NEUROLOGICAL: Awake and alert. Normal speech. A/P Problem List: (1) Intracranial hemorrhage (2) Skull fracture (3) Scalp laceration (4) LOC (loss of consciousness) (5) Scalp abrasion (6) TBI (traumatic brain injury) Assessment and Plan INJURIES: Large scalp laceration LEFT temporal bone fx RIGHT SDH - 5mm with R to L shift SAH scattered 04/23: RIGHT craniotomy, w/ ventric placement 04/30: ventric out Diet: Regular, mechanical soft. ST cognitive eval and swallow fxn Pulm: IS, Acapella, EZpap. Encouraged patient use. Pain: [place]. Pain controlled. Activity: OOB. PT and OT ordered 7 DAYS A WEEK. OOB with minimal assist GI: Pepcid Bowel: Makayla-colace, Lactulose QD. Dulcolax [place] PRN. BM 05/04 DVT: SCD. Lovenox 40 q day KEPPRA. Cerebyx. NS following. ID following and managing antibiotics. Afebrile. Labs in AM. Case management consulted to assist with discharge planning. Patient has no payer source. Family would like to take the patient home on discharge. Plan of care discussed with patient at bedside. Attending Statement The exam, history, and the medical decision-making described in the above note were completed with the assistance of the mid-level provider. I reviewed and agree with the findings presented. I attest that I had a [id number] encounter with the patient on the same day, and personally performed and documented my assessment and findings in the medical record. s/p head injury, GCS15, awake and alert on PE Problem Qualifiers (1) Skull fracture: Qualified Code: S02.0XXB - Open fracture of parietal bone, initial encounter (2) Scalp laceration: Qualified Code: S01.01XA - Scalp laceration, initial encounter (3) TBI (traumatic brain injury): Qualified Code: S06.9X1D - TBI (traumatic brain injury), with loss of consciousness of 30 minutes or less, subsequent encounter Qi Paiz May 04, 2016 16:51 Alejandro Kaye MD May 18, 2016 01:34
[2016-05-04] MEDS ORDERED: WALKER WHEELS/F1 MIS (16:52)
[2016-05-04 20:59] VITALS: BP 134/74; PULSE 91; RESP 18; TEMP 98.6; O2SAT 95
[2016-05-05] VITALS: BP 130/76; PULSE 90; RESP 18; TEMP 98.5; O2SAT 95
[2016-05-05] MEDS: SODIUM CHLORIDE 0.9% FLUSH 5 ML FLUSH IVF PRN (02:33)
[2016-05-05] MEDS: PIPERACIL-TAZO 3.375 GM PREMIX 50 ML IV SCH ×3 (02:41→14:42)
[2016-05-05] MEDS: CHLORHEXIDINE GLUCONATE 2 % 1 PACK (2 CLOTHS) TOP SCH (04:00)
[2016-05-05] MEDS: FOSPHENYTOIN INJ 100 MGPE in SODIUM CHLORIDE 0.9% INJ 50 ML IV SCH ×2 (05:11→14:43)
[2016-05-05] MEDS: ACETAMINOPHEN/HYDROcodone 325 MG/5 MG TAB PO PRN ×3 (05:19→14:41)
[2016-05-05 08:00] VITALS: BP 108/62; PULSE 80; RESP 18; TEMP 97.1; O2SAT 95
[2016-05-05] MEDS: levETIRAcetam 500 MG TAB PO SCH (08:24)
[2016-05-05] MEDS: ARTIFICIAL TEARS OPTH OINT 3.5 APPLIC/3.5 GM TUBO EACH EYE SCH (08:24)
[2016-05-05] MEDS: DOCUSATE SODIUM 50 MG/SENNA 8.6 MG TAB PO SCH (08:24)
[2016-05-05] MEDS: FAMOTIDINE 20 MG TAB PO SCH (08:24)
[2016-05-05] MEDS: METOPROLOL TARTRATE 25 MG TAB PO SCH (08:24)
[2016-05-05] MEDS: SODIUM CHLORIDE 0.9% FLUSH 5 ML FLUSH IVF SCH (08:25)
[2016-05-05 08:40] LABS: AUTOMATED NEUTROPHIL # 6.5 TH/MM3 (1.8-7.7); BASOPHIL # 0.1 TH/MM3 (0-0.2); BASOPHIL % 1.2 % (0.0-2.0); EOSINOPHIL # 0.4 TH/MM3 (0-0.4); EOSINOPHIL % 4.5 % (0.0-4.0); HEMATOCRIT 33.3 % (39.0-51.0); HEMO FLAGS DIFF FINAL; LYMPH % 21.2 % (9.0-44.0); LYMPHOCYTE # 2.1 TH/MM3 (1.0-4.8); MEAN CELL VOLUME 88.7 FL (80.0-100.0); MEAN CORPUSCULAR HEMOGLOBIN 30.6 PG (27.0-34.0); MEAN CORPUSCULAR HGB CONC 34.5 % (32.0-36.0); MONO % 7.3 % (0.0-8.0); NEUT % 65.8 % (16.0-70.0); PLATELET COUNT 764 TH/MM3 (150-450); RED BLOOD COUNT 3.75 MIL/MM3 (4.50-5.90); RED CELL DISTRIBUTION WIDTH 14.3 % (11.6-17.2); WHITE BLOOD COUNT 9.9 TH/MM3 (4.0-11.0)
[2016-05-05 08:53] LABS: ALKALINE PHOSPHATASE 171 U/L (45-117); ALT (GPT) 111 U/L (12-78); ANION GAP 10 MEQ/L (5-15); AST (GOT) 31 U/L (15-37); BICARBONATE 27.5 MEQ/L (21.0-32.0); BLOOD UREA NITROGEN 6 MG/DL (7-18); CHLORIDE 102 MEQ/L (98-107); GLOMERULAR FILTRATION RATE 103 ML/MIN (>89); POTASSIUM 3.4 MEQ/L (3.5-5.1); SODIUM (NA) 139 MEQ/L (136-145); TOTAL BILIRUBIN ADULT 0.3 MG/DL (0.2-1.0)
[2016-05-05] MEDS ORDERED: POTASSIUM CHLORIDE 10 MEQ CONTROLLED RELEASE TAB PO ONE (09:15)
[2016-05-05 12:21] VITALS: BP 131/67; PULSE 83; RESP 18; TEMP 97.9; O2SAT 97
[2016-05-05] MEDS ORDERED: SENN1TAB PO (12:42)
[2016-05-05] MEDS: ENOXAPARIN SODIUM 40 MG/0.4 ML SYRINGE SQ SCH (14:42)
[2016-05-05 15:41] VITALS: RESP 17
[2016-05-05] MEDS ORDERED: HYDR-3516 PO (16:11)
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
[2016-05-17] MEDS ORDERED: HYDR-3516 PO (14:59)
[2016-06-27] MEDS ORDERED: HYDR-3583 PO (13:47)
[2016-07-31] MEDS ORDERED: HYDR-3583 PO (16:06)
== END 2016-05-05 17:04 | disposition home or self-care (01) | DRG 25 ==
LOC: NEPA 17:30 → NEDA 20:02 → N03B 04-15 01:15 → N05B 05-01 23:53
PROVIDERS: ADMIT Surgery; ATTEND Surgery
PROC: 0HQ0XZZ Repair Scalp Skin, External Approach (ICD-10-PCS; 2016-04-14)
PROC: 02HV33Z Insertion of Infusion Device into Superior Vena Cava, Percutaneous Approach (ICD-10-PCS; 2016-04-15)
PROC: B543ZZA Ultrasonography of Right Jugular Veins, Guidance (ICD-10-PCS; 2016-04-15)
PROC: 009600Z Drainage of Cerebral Ventricle with Drainage Device, Open Approach (ICD-10-PCS; 2016-04-18)
PROC: 5A1955Z Respiratory Ventilation, Greater than 96 Consecutive Hours (ICD-10-PCS; 2016-04-18)
PROC: 00C40ZZ Extirpation of Matter from Intracranial Subdural Space, Open Approach (ICD-10-PCS; principal; 2016-04-18 01:13)
PROC: 00P6X0Z Removal of Drainage Device from Cerebral Ventricle, External Approach (ICD-10-PCS; 2016-04-30)
DX: S02.19XA Other fracture of base of skull, initial encounter for closed fracture (principal); G93.6 Cerebral edema; J69.0 Pneumonitis due to inhalation of food and vomit; J15.211 Pneumonia due to Methicillin susceptible Staphylococcus aureus; J15.6 Pneumonia due to other Gram-negative bacteria; J15.4 Pneumonia due to other streptococci; E87.1 Hypo-osmolality and hyponatremia; G40.89 Other seizures; G81.94 Hemiplegia, unspecified affecting left nondominant side; S06.5X9A Traumatic subdural hemorrhage with loss of consciousness of unspecified duration, initial encounter; S06.6X9A Traumatic subarachnoid hemorrhage with loss of consciousness of unspecified duration, initial encounter; S01.01XA Laceration without foreign body of scalp, initial encounter; S40.022A Contusion of left upper arm, initial encounter; E87.6 Hypokalemia; F10.129 Alcohol abuse with intoxication, unspecified; S90.02XA Contusion of left ankle, initial encounter; V23.4XXA Motorcycle driver injured in collision with car, pick-up truck or van in traffic accident, initial encounter; R27.0 Ataxia, unspecified; R73.9 Hyperglycemia, unspecified; F12.10 Cannabis abuse, uncomplicated; F17.210 Nicotine dependence, cigarettes, uncomplicated; Y90.2 Blood alcohol level of 40-59 mg/100 ml; Z23 Encounter for immunization
CPT/HCPCS: 12002; 36556; 36600; 70450; 71010; 71260; 72125; 72128; 72131; 72170; 74177; 80048; 80053; 80185; 80202; 80307; 80320; 81001; 82805; 83735; 83930; 84100; 84132; 84295; 85007; 85025; 85027; 85610; 85730; 86403; 86850; 86900; 86901; 86920; 87040; 87070; 87077; 87147; 87186; 87205; 87641; 90471; 90686; 90714; 90732; 94002; 94003; 94150; 94640; 94667; 94668; 94770; 95819; 96361; 96374; 96375; C9113; C9399; J0171; J0360; J0461; J0690; J1580; J1650; J1940; J1953; J2150; J2175; J2250; J2270; J2370; J2405; J2543; J2765; J2997; J3010; J3370; J3480; J7030; J7040; J7050; J7120; Q2009; Q2038; Q9967

== ENCOUNTER 2016-05-22 15:28 | Inpatient (IN) | payer OTHER ==
[~2016-05-22] VITALS: Ht 180.3 cm; Wt 86.8 kg
[~2016-05-22 15:28] MED LIST: HYDR-3516 PO
[2016-05-23] MEDS ORDERED: PHENYLEPH/NS 1000 MCG/10 ML SYR IV ONE (12:00)
[2016-05-23] MEDS ORDERED: NEOSTIGMINE 3 MG/3 ML SYR IV ONE (12:00)
[2016-05-23] MEDS ORDERED: ONDANSETRON HCL 4 MG/2 ML VIAL IV PUSH ONE (12:00)
[2016-05-23] MEDS ORDERED: LACTATED RINGER'S 1000 ML INJ 2,000 ML IV ONE (12:00)
[2016-05-23] MEDS ORDERED: PROPOFOL 200 MG/20 ML AMP IV ONE (12:00)
[2016-05-23 13:45] VITALS: BP 160/103; PULSE 90; RESP 20; TEMP 98.5; O2SAT 98
[2016-05-23] MEDS ORDERED: INSULIN HUMAN REGULAR 1,000 UNITS/10 ML VIAL SQ PRN (13:45)
[2016-05-23] MEDS: SODIUM CHLORID 0.9% 500 ML IV SCH ×2 (13:45→22:30)
[2016-05-23] MEDS ORDERED: LACTATED RINGER'S 1000 ML INJ 1,000 ML IV SCH (13:45)
[2016-05-23] MEDS ORDERED: ceFAZolin 2 GM PREMIX 50 ML IV SCH (13:45)
[2016-05-23] MEDS: LACTATED RINGER'S 1000 ML IV SCH (13:45)
[2016-05-23] MEDS ORDERED: METOPROLOL TARTRATE 25 MG TAB PO PRN (13:45)
--- NOTE | 2016-05-23 13:51 | RADRPT ---
EXAM DATE/TIME: 05/23/2016 13:27 [facility] COMPARISON: CHEST SINGLE AP, April 28, 2016, 4:58. INDICATIONS : Evaluate for pneumonia, pneumothorax or communicable disease. Preop chest for craniotomy to replace b one flap today MEDICAL HISTORY : subdural hematoma, brain injury SURGICAL HISTORY : Craniotomy. ENCOUNTER: Initial ACUITY: 1 day PAIN SCORE: 0/10 LOCATION: Bilateral chest FINDINGS: A single view of the chest demonstrates the lungs to be symmetrically aerated without evidence of mas s, infiltrate or effusion. The cardiomediastinal contours are unremarkable. Osseous structures are intact. CONCLUSION: Normal examination. Izaiah Angela Jr., MD on May 23, 2016 at 13:49 Board Certified Radiologist. This report was verified electronically.
[2016-05-23] MEDS ORDERED: MIDAZOLAM HCL 2 MG/2 ML VIAL ONE (14:27)
[2016-05-23] MEDS ORDERED: FAMOTIDINE 20 MG/2 ML VIAL ONE (14:27)
[2016-05-23 15:16] LABS: AUTOMATED NEUTROPHIL # 8.9 TH/MM3 (1.8-7.7); BASOPHIL % 0.4 % (0.0-2.0); EOSINOPHIL # 0.3 TH/MM3 (0-0.4); EOSINOPHIL % 3.2 % (0.0-4.0); HEMATOCRIT 37.8 % (39.0-51.0); HEMO FLAGS DIFF FINAL; LYMPHOCYTE # 1.1 TH/MM3 (1.0-4.8); MEAN CELL VOLUME 88.4 FL (80.0-100.0); MEAN CORPUSCULAR HEMOGLOBIN 28.9 PG (27.0-34.0); MEAN CORPUSCULAR HGB CONC 32.7 % (32.0-36.0); MONO % 5.1 % (0.0-8.0); NEUT % 81.3 % (16.0-70.0); PLATELET COUNT 258 TH/MM3 (150-450); RED BLOOD COUNT 4.28 MIL/MM3 (4.50-5.90); RED CELL DISTRIBUTION WIDTH 13.3 % (11.6-17.2)
[2016-05-23 15:18] LABS: PROTHROMBIN TIME - PATIENT 10.7 SEC (9.8-11.6)
[2016-05-23] MEDS ORDERED: THROMBIN (TOPICAL) 5,000 UNIT VIAL TOPICAL ONE (15:22)
[2016-05-23] MEDS ORDERED: GENTAMICIN SULFATE 80 MG/2 ML VIAL IRRIGATION ONE (15:22)
[2016-05-23] MEDS ORDERED: GELFOAM SIZE 100 TOP ONE (15:22)
[2016-05-23] MEDS ORDERED: LIDOCAINE 1%/EPINEPHrine 1:100,000 SOLN 30 ML VIAL INFIL ONE (15:22)
[2016-05-23 15:29] LABS: BICARBONATE 26.5 MEQ/L (21.0-32.0); POTASSIUM 3.3 MEQ/L (3.5-5.1)
[2016-05-23] MEDS: NS + KCL 20 MEQ INJ 1,000 ML IV SCH (18:15)
[2016-05-23] MEDS ORDERED: NALOXONE HCL 0.4 MG/ML AMP IV PRN (18:15)
[2016-05-23] MEDS ORDERED: MORPHINE SULFATE 4 MG/ML INJ IV PRN (18:15)
[2016-05-23] MEDS ORDERED: HYDROmorphone HCL PF 1 MG/ML VIAL IV PRN (18:15)
--- NOTE | 2016-05-23 18:28 | PD.OP ---
Operative Report Date of Surgery: May 23, 2016 Preoperative Diagnosis: (1) TBI (traumatic brain injury) Status post right decompressive craniotomy, evacuation hematoma, status post posttraumatic brain injury Postoperative Diagnosis: (1) TBI (traumatic brain injury) Status post right decompressive craniotomy, evacuation hematoma, status post posttraumatic brain injury Procedure: Replacement right craniotomy bone flap Anesthesia: Gen. Surgeon: Darin Zamudio Welder Apprentice Arc(s): Sabine Albert Operation and Findings: Patient was brought to the operating room and general endotracheal anesthesia without difficulty. LAZARO hose, and sequential compression devices were placed Lines were established by anesthesia All extremities were appropriately padded The patient was placed in supine position on the 3080 table with the head and neck in neutral position on the horseshoe headrest The head was shaved and prepped in a sterile fashion Appropriate time-out procedure was performed with all personal present and in agreement 1% Xylocaine with epinephrine was used for local infiltration over the previous right frontotemporoparietal incision site. The incision was made over the previous incision site and carried sharply down to the cranium. The periosteal elevator was used to release the scalp away from the bone margin circumferentially at the previous operative site. The Metzenbaum scissors and dissectors were used to separate the galea, periosteum and temporalis muscle away from the previously released dural margins. The scalp flap was retracted with large scalp hooks. The brain was soft and pulsatile. The edges of the previous craniotomy site were cleaned with the curettes of any debris. The previous bone flap, which had been previously stored in the operating room freezer was properly identified and opened onto the sterile field and soaked in gentamicin antibiotic solution. A bone bur on the TPS drill was used to thin out some of the thicker areas of bone flap to avoid excessive compression on the brain parenchyma. The bone flap was replaced with titanium maxillofacial plates and screws A 7 mm flat fluted drain was placed in the subgaleal space and brought out through an incision in the posterior parietal region and secured to the skin with nylon suture The region was well irrigated with antibiotic irrigation prior to closure. Closure was performed with 2-0 Vicryl interrupted for the galeal and temporalis muscle fascia closures with wang and 4-0 Vicryl running for the skin closure. A dressing of sterile Telfa , 4 x 4's, and head stockinette was placed. The patient was taken to recovery room in stable condition All counts were correct at the end of the case No specimen was sent to pathology Estimated blood loss was 100 cc Darin Zamudio MD May 23, 2016 18:28
[2016-05-23] MEDS ORDERED: MORPHINE SULFATE 8 MG/ML INJ ONE (18:46)
[2016-05-23] MEDS ORDERED: LABETALOL HCL 100 MG/20 ML VIAL ONE (18:56)
[2016-05-23] MEDS ORDERED: fentaNYL CITRATE 250 MCG/5 ML AMP ONE (18:56)
[2016-05-23] MEDS ORDERED: *morphine SULFATE 8 MG/ML PERIprocedure ONLY ONE (18:57)
[2016-05-23] MEDS ORDERED: DO NOT ADM ANY ANTICOAGULANT DRUGS XX PRN (19:00)
[2016-05-23] MEDS ORDERED: ENALAPRILAT 1.25 MG/ML VIAL ONE (19:19)
[2016-05-23] MEDS: HYDROmorphone HCL PF 1 MG/ML VIAL IV PRN (20:45)
[2016-05-23 21:30] VITALS: BP 153/91; PULSE 74; PULSE 95; RESP 11; TEMP 98.4; O2SAT 99
[2016-05-23] MEDS: ONDANSETRON HCL 4 MG/2 ML VIAL IV PRN (21:51)
[2016-05-23 22:00] VITALS: PULSE 93
[2016-05-24] VITALS (11 sets, daily range): BP systolic 142–159; BP diastolic 82–99; PULSE 7–92; RESP 12–23; TEMP 97.4–98.4; O2SAT 94–100
[2016-05-24] MEDS: HYDROmorphone HCL PF 1 MG/ML VIAL IV PRN ×6 (02:02→22:21)
[2016-05-24] MEDS: NS + KCL 20 MEQ INJ 1,000 ML IV SCH ×2 (03:33→14:15)
[2016-05-24] MEDS: oxyCODONE/ACETAMINOPHEN 10 MG/325 MG TAB PO PRN ×2 (03:53→21:20)
[2016-05-24 04:26] LABS: BASOPHIL % 0.1 % (0.0-2.0); EOSINOPHIL % 0.4 % (0.0-4.0); HEMATOCRIT 36.1 % (39.0-51.0); HEMO FLAGS DIFF FINAL; LYMPH % 9.6 % (9.0-44.0); LYMPHOCYTE # 0.9 TH/MM3 (1.0-4.8); MEAN CELL VOLUME 88.9 FL (80.0-100.0); MEAN CORPUSCULAR HEMOGLOBIN 28.9 PG (27.0-34.0); MEAN CORPUSCULAR HGB CONC 32.5 % (32.0-36.0); MONO % 6.6 % (0.0-8.0); NEUT % 83.3 % (16.0-70.0); PLATELET COUNT 252 TH/MM3 (150-450); RED BLOOD COUNT 4.06 MIL/MM3 (4.50-5.90); RED CELL DISTRIBUTION WIDTH 13.7 % (11.6-17.2); WHITE BLOOD COUNT 9.6 TH/MM3 (4.0-11.0)
[2016-05-24] MEDS: ONDANSETRON HCL 4 MG/2 ML VIAL IV PRN ×2 (04:30→16:36)
--- NOTE | 2016-05-24 04:38 | RADRPT ---
EXAM DATE/TIME: 05/24/2016 04:02 [facility] COMPARISON: No previous studies available for comparison. INDICATIONS : Status post right craniotomy bone flap replacement. RADIATION DOSE: 56.35 CTDIvol (mGy) MEDICAL HISTORY : Traumatic brain injury. SURGICAL HISTORY : Craniotomy. ENCOUNTER: Subsequent ACUITY: 1 day PAIN SCALE: 6/10 LOCATION: Right cranial TECHNIQUE: Multiple contiguous axial images were obtained of the head. Using automated exposure control and adj ustment of the mA and/or kV according to patient size, radiation dose was kept as low as reasonably a chievable to obtain optimal diagnostic quality images. FINDINGS: Compare May 01. Right sided bone flap has been replaced. There is no new intracranial hemorrhage . There is a small amount of air deep to the bone flap anteriorly. Low attenuation present in the pos terior right temporal lobe characteristic of prior infarct or brain injury. No significant midline sh ift. No hydrocephalus. CONCLUSION: 1. Right calvarial bone flap has been replaced. No new intracranial hemorrhage. Evolving infarct or b rain injury posterior right temporal region. Ayush Rivers MD on May 24, 2016 at 4:34 Board Certified Radiologist. This report was verified electronically.
[2016-05-24 05:06] LABS: BICARBONATE 28.7 MEQ/L (21.0-32.0); POTASSIUM 4.3 MEQ/L (3.5-5.1)
[2016-05-24] MEDS: PANTOPRAZOLE SOD 40 MG DELAYED RELEASE TAB PO SCH (08:17)
[2016-05-24] MEDS: LACTATED RINGER'S 1000 ML IV SCH (13:45)
--- NOTE | 2016-05-24 22:47 | HHI.NSPN ---
History Chief Complaint: moderate headache-improving Interval History Patient with previous history of traumatic brain injury, status post right decompressive craniotomy, evacuation hematoma 05/23/16: Replacement right craniotomy bone flap 05/24/16: Stable neurologic exam postoperatively. Drain remains in place Exam Results Vital Signs Date Time Temp Pulse Resp B/P Pulse Ox O2 Delivery O2 Flow Rate FiO2 05/24/16 20:05 17 05/24/16 20:00 97.7 84 159/82 98 05/24/16 19:00 Room Air 05/23/16 21:30 2.00 Intake and Output 05/23/16 05/23/16 05/24/16 08:00 16:00 00:00 Intake Total 2540 ml Output Total 700 ml Balance 1840 ml Physical Examination Respirations clear to auscultation Cardiac regular without murmur Abdomen soft nontender Scalp dressing dry and intact Mild to moderate drain output Awake and alert Speech and thought processes a little slow, but speech clear and appropriate Follow simple commands well Extraocular movements, visual barbosa to confrontation, facial sensory motor, sternocleidomastoid testing all intact Sensation intact light touch all extremities Strength normal major flexion and extension groups all extremities Lab, Micro, Other Results 05/24/16 CT scan head images reviewed by the undersigned. Decreased attenuation right posterior temporal region appears related to previous traumatic brain injury, encephalomalacia. Head CT 05/24/16 0600 Signed Impressions: Service Date/Time: Tuesday, May 24, 2016 04:02 - CONCLUSION: 1. Right calvarial bone flap has been replaced. No new intracranial hemorrhage. Evolving infarct or brain injury posterior right temporal region. Ayush Rivers MD Chest X-Ray 05/23/16 0000 Signed Impressions: Service Date/Time: May 13:27 - CONCLUSION: Normal examination. Izaiah Angela Jr., MD Laboratory Tests Test 05/24/16 03:45 White Blood Count 9.6 TH/MM3 Red Blood Count 4.06 MIL/MM3 Hemoglobin 11.7 GM/DL Hematocrit 36.1 % Mean Corpuscular Volume 88.9 FL Mean Corpuscular Hemoglobin 28.9 PG Mean Corpuscular Hemoglobin 32.5 % Concent Red Cell Distribution Width 13.7 % Platelet Count 252 TH/MM3 Mean Platelet Volume 8.0 FL Neutrophils (%) (Auto) 83.3 % Lymphocytes (%) (Auto) 9.6 % Monocytes (%) (Auto) 6.6 % Eosinophils (%) (Auto) 0.4 % Basophils (%) (Auto) 0.1 % Neutrophils # (Auto) 8.0 TH/MM3 Lymphocytes # (Auto) 0.9 TH/MM3 Monocytes # (Auto) 0.6 TH/MM3 Eosinophils # (Auto) 0.0 TH/MM3 Basophils # (Auto) 0.0 TH/MM3 CBC Comment DIFF FINAL Differential Comment Sodium Level 142 MEQ/L Potassium Level 4.3 MEQ/L Chloride Level 104 MEQ/L Carbon Dioxide Level 28.7 MEQ/L Anion Gap 9 MEQ/L Blood Urea Nitrogen 4 MG/DL Creatinine 0.78 MG/DL Estimat Glomerular Filtration 123 ML/MIN Rate Random Glucose 118 MG/DL Calcium Level 8.6 MG/DL Medical Decision Making Impression and Plan Impression: 1. Neurologic function stable following replacement craniotomy bone flap. Plan: Findings discussed with the patient and family. Appears stable for transfer to floor Continue drain Check follow-up CT scan head next one-2 days depending on clinical status to recheck for a delayed postoperative edema or changes in right temporal lobe decreased attenuation. Presently no neurologic deficit indicate cerebral ischemia. Decreased appetite initially postoperative. Advance diet as tolerated Darin Zamudio MD May 24, 2016 22:47
[2016-05-25] VITALS (8 sets, daily range): BP systolic 150–168; BP diastolic 87–108; PULSE 77–98; RESP 18–22; TEMP 97–98; O2SAT 94–99
[2016-05-25] MEDS: NS + KCL 20 MEQ INJ 1,000 ML IV SCH ×2 (00:15→20:15)
[2016-05-25] MEDS: HYDROmorphone HCL PF 1 MG/ML VIAL IV PRN (01:10)
[2016-05-25] MEDS: oxyCODONE/ACETAMINOPHEN 10 MG/325 MG TAB PO PRN ×2 (04:47→21:03)
[2016-05-25] MEDS: PANTOPRAZOLE SOD 40 MG DELAYED RELEASE TAB PO SCH (08:31)
[2016-05-25] MEDS: ACETAMINOPHEN/HYDROcodone 325 MG/5 MG TAB PO PRN ×2 (08:48→14:26)
[2016-05-25 13:11] LABS: HEMATOCRIT 33.3 % (39.0-51.0); MEAN CELL VOLUME 87.9 FL (80.0-100.0); MEAN CORPUSCULAR HEMOGLOBIN 29.3 PG (27.0-34.0); MEAN CORPUSCULAR HGB CONC 33.4 % (32.0-36.0); PLATELET COUNT 251 TH/MM3 (150-450); RED BLOOD COUNT 3.78 MIL/MM3 (4.50-5.90); RED CELL DISTRIBUTION WIDTH 13.5 % (11.6-17.2); REVIEW FLAG FINAL; WHITE BLOOD COUNT 7.9 TH/MM3 (4.0-11.0)
[2016-05-25 13:39] LABS: BICARBONATE 30.2 MEQ/L (21.0-32.0); POTASSIUM 3.3 MEQ/L (3.5-5.1)
--- NOTE | 2016-05-25 15:43 | HHI.NSPN ---
History Chief Complaint: moderate headache-improving Interval History Patient with previous history of traumatic brain injury, status post right decompressive craniotomy, evacuation hematoma 05/23/16: Replacement right craniotomy bone flap 05/24/16: Stable neurologic exam postoperatively. Drain remains in place 05/25/16: Mild drain output. Some increased right facial and periorbital edema this morning, resolved with elevation of head. Neurologic exam remained stable. Drain discontinued Exam Results Vital Signs Date Time Temp Pulse Resp B/P Pulse Ox O2 Delivery O2 Flow Rate FiO2 05/25/16 12:49 97.7 87 18 164/98 05/25/16 12:00 97 05/24/16 19:00 Room Air 05/23/16 21:30 2.00 Intake and Output 05/24/16 05/24/16 05/25/16 08:00 16:00 00:00 Intake Total 1188 ml 1315 ml Output Total 530 ml 860 ml 300 ml Balance 658 ml 455 ml -300 ml Physical Examination Respirations clear and regular Abdomen soft nontender Scalp dressing dry and intact Mild serosanguineous drain output Awake and alert Speech and thought processes remain a little slow, but speech clear and appropriate Follow simple commands well Extraocular movements, visual barbosa to confrontation, facial sensory motor, sternocleidomastoid testing all intact Sensation intact light touch all extremities Strength normal major flexion and extension groups all extremities Lab, Micro, Other Results Laboratory Tests Test 05/25/16 13:02 White Blood Count 7.9 TH/MM3 Red Blood Count 3.78 MIL/MM3 Hemoglobin 11.1 GM/DL Hematocrit 33.3 % Mean Corpuscular Volume 87.9 FL Mean Corpuscular Hemoglobin 29.3 PG Mean Corpuscular Hemoglobin 33.4 % Concent Red Cell Distribution Width 13.5 % Platelet Count 251 TH/MM3 Mean Platelet Volume 7.6 FL Sodium Level 139 MEQ/L Potassium Level 3.3 MEQ/L Chloride Level 100 MEQ/L Carbon Dioxide Level 30.2 MEQ/L Anion Gap 9 MEQ/L Blood Urea Nitrogen 4 MG/DL Creatinine 0.76 MG/DL Estimat Glomerular Filtration 127 ML/MIN Rate Random Glucose 93 MG/DL Calcium Level 8.3 MG/DL Medical Decision Making Impression and Plan Impression: 1. Neurologic function stable following replacement craniotomy bone flap. Plan: Findings discussed with the patient and family. Discontinue drain Check follow-up CT scan head depending on clinical status to recheck for a delayed postoperative edema or changes in right temporal lobe decreased attenuation. Presently no neurologic deficit indicate cerebral ischemia. Decreased appetite initially postoperative. Advance diet as tolerated Sodium decreasing. Continue to follow Darin Zamudio MD May 25, 2016 15:43
[2016-05-26] VITALS: BP 132/95; PULSE 94; RESP 18; TEMP 97.6; O2SAT 98
[2016-05-26] MEDS: HYDROmorphone HCL PF 1 MG/ML VIAL IV PRN (00:28)
[2016-05-26] MEDS: NS + KCL 20 MEQ INJ 1,000 ML IV SCH ×3 (00:29→15:35)
[2016-05-26 04:00] VITALS: BP 138/90; PULSE 71; RESP 18; TEMP 96.5; O2SAT 98
[2016-05-26 08:00] VITALS: BP 131/92; PULSE 72; RESP 18; TEMP 95.6; O2SAT 94
[2016-05-26] MEDS: PANTOPRAZOLE SOD 40 MG DELAYED RELEASE TAB PO SCH (10:07)
[2016-05-26] MEDS: ACETAMINOPHEN/HYDROcodone 325 MG/5 MG TAB PO PRN ×2 (10:08→16:03)
[2016-05-26] MEDS: LACTATED RINGER'S 1000 ML IV SCH (12:28)
[2016-05-26 12:30] VITALS: BP 166/88; PULSE 86; RESP 18; TEMP 96.6; O2SAT 97
[2016-05-26 16:05] VITALS: BP 141/91; PULSE 76; RESP 18; TEMP 97; O2SAT 98
[2016-05-26 20:38] VITALS: BP 139/94; PULSE 92; RESP 20; TEMP 98.7; O2SAT 98
--- NOTE | 2016-05-26 21:12 | HHI.NSPN ---
History Chief Complaint: minimal headache Interval History Patient with previous history of traumatic brain injury, status post right decompressive craniotomy, evacuation hematoma 05/23/16: Replacement right craniotomy bone flap 05/24/16: Stable neurologic exam postoperatively. Drain remains in place 05/25/16: Mild drain output. Some increased right facial and periorbital edema this morning, resolved with elevation of head. Neurologic exam remained stable. Drain discontinued Exam Results Vital Signs Date Time Temp Pulse Resp B/P Pulse Ox O2 Delivery O2 Flow Rate FiO2 05/26/16 20:38 98.7 92 20 139/94 98 05/24/16 19:00 Room Air 05/23/16 21:30 2.00 Intake and Output 05/25/16 05/25/16 05/26/16 08:00 16:00 00:00 Intake Total 240 ml Output Total 10 ml Balance -10 ml 240 ml Physical Examination Respirations clear and regular Scalp dressing dry and intact Awake and alert Speech clear and fluent. Recent and remote memory appears intact Follow simple commands well Extraocular movements, visual barbosa to confrontation, facial sensory motor, sternocleidomastoid testing all intact Sensation intact light touch upper extremities Strength normal major flexion and extension groups upper extremities Medical Decision Making Impression and Plan Impression: 1. Neurologic function stable following replacement craniotomy bone flap. Plan: Findings discussed with the patient and family. Check follow-up CT scan head in a.m. prior to planned discharge Presently no neurologic deficit to indicate cerebral ischemia. Sodium decreasing. Continue to follow Darin Zamudio MD May 26, 2016 21:12
[2016-05-26] MEDS ORDERED: OXYC1TAB36 PO (21:14)
--- NOTE | 2016-05-26 21:15 | HHI.DCPOC ---
Discharge Care Plan Diagnosis: (1) TBI (traumatic brain injury) Your Health Problems Are: Incision/Drains Exercise Tolerance Goals to Promote Your Health * To prevent worsening of your condition and complications * To maintain your health at the optimal level Directions to Meet Your Goals Take your medications as prescribed Follow your dietary instruction Follow activity as directed Keep your appointments as scheduled Take your immunizations and boosters as scheduled If your symptoms worsen call your PCP, if no PCP go to Urgent Care Center or Emergency Room Smoking is Dangerous to Your Health. Avoid second hand smoke Call the 24-hour hour crisis hotline for domestic abuse at Darin Zamudio MD May 26, 2016 21:15
--- NOTE | 2016-05-26 21:17 | HHI.DS ---
Discharge Summary Admission Date May 23, 2016 at 13:01 Discharge Date: May 27, 2016 Admitting Diagnosis Status post right decompressive craniotomy for traumatic brain injury (1) TBI (traumatic brain injury) ICD Code: S06.9X9A Procedures Replacement right craniotomy bone flap CBC/BMP: 05/25/16 1302 05/25/16 1302 Significant Findings Laboratory Tests Test 05/24/16 05/25/16 03:45 13:02 Red Blood Count 4.06 MIL/MM3 3.78 MIL/MM3 (4.50-5.90) (4.50-5.90) Hemoglobin 11.7 GM/DL 11.1 GM/DL (13.0-17.0) (13.0-17.0) Hematocrit 36.1 % 33.3 % (39.0-51.0) (39.0-51.0) Neutrophils (%) (Auto) 83.3 % (16.0-70.0) Neutrophils # (Auto) 8.0 TH/MM3 (1.8-7.7) Lymphocytes # (Auto) 0.9 TH/MM3 (1.0-4.8) Blood Urea Nitrogen 4 MG/DL (7-18) 4 MG/DL (7-18) Random Glucose 118 MG/DL (74-106) Potassium Level 3.3 MEQ/L (3.5-5.1) Calcium Level 8.3 MG/DL (8.5-10.1) Imaging Last Impressions Head CT 05/24/16 0600 Signed Impressions: Service Date/Time: Tuesday, May 24, 2016 04:02 - CONCLUSION: 1. Right calvarial bone flap has been replaced. No new intracranial hemorrhage. Evolving infarct or brain injury posterior right temporal region. Ayush Rivers MD Chest X-Ray 05/23/16 0000 Signed Impressions: Service Date/Time: May 13:27 - CONCLUSION: Normal examination. Izaiah Angela Jr., MD PE at Discharge Respirations clear and regular Scalp dressing dry and intact Awake and alert Speech clear and fluent. Recent and remote memory appears intact Follow simple commands well Extraocular movements, visual barbosa to confrontation, facial sensory motor, sternocleidomastoid testing all intact Sensation intact light touch upper extremities Strength normal major flexion and extension groups upper extremities Hospital Course Patient admitted for the above noted procedure performed without complication. Drain in place [address] scan with mild increased attenuation right temporal lobe. No significant mass effect. Patient with initial nausea, poor oral intake. Drain discontinued 05/25/16 05/26/16 diet improving Pt Condition on Discharge: Good Discharge Disposition: Discharge Home Discharge Instructions DIET: Follow Instructions for: As Tolerated, No Restrictions ACTIVITIES You can perform: Weight Bearing As Inge Activities to Avoid: Lifting/Bending, Strenuous Activity Follow up Referrals: Appointment for Follow Up @ Dr. Zamudio New Medications: Oxycodone-Acetaminophen (Oxycodone-Acetaminophen) 10-325 mg Tab 1 TAB PO Q6H PRN PAIN SCALE 6 TO 10 #30 Ref 0 TAB Continued Medications: Hydrocodone-Acetaminophen (Hydrocodone-Acetaminophen) 5-325 mg Tab 1 TAB PO Q4H PRN PAIN SCALE 1 TO 5 #90 TAB Darin Zamudio MD May 26, 2016 21:17
[2016-05-27 00:57] VITALS: BP 153/93; PULSE 78; RESP 18; TEMP 98.6; O2SAT 98
[2016-05-27] MEDS: HYDROmorphone HCL PF 1 MG/ML VIAL IV PRN (01:39)
[2016-05-27] MEDS: ONDANSETRON HCL 4 MG/2 ML VIAL IV PRN (01:40)
[2016-05-27] MEDS: NS + KCL 20 MEQ INJ 1,000 ML IV SCH ×2 (02:15→11:48)
[2016-05-27 04:51] VITALS: BP 135/87; PULSE 73; RESP 18; TEMP 97.6; O2SAT 98
[2016-05-27 08:11] LABS: BICARBONATE 27.3 MEQ/L (21.0-32.0); POTASSIUM 3.3 MEQ/L (3.5-5.1)
[2016-05-27 08:50] VITALS: BP 142/90; PULSE 85; RESP 18; TEMP 97; O2SAT 97
[2016-05-27] MEDS: PANTOPRAZOLE SOD 40 MG DELAYED RELEASE TAB PO SCH (09:16)
--- NOTE | 2016-05-27 10:29 | RADRPT ---
EXAM DATE/TIME: 05/27/2016 08:58 [facility] COMPARISON: CT BRAIN W/O CONTRAST, April 17, 2016, 5:04. CT BRAIN W/O CONTRAST, May 24, 2016, 4:02. INDICATIONS : Status post replacement craniotomy bone flap. RADIATION DOSE: 51.24 CTDIvol (mGy) MEDICAL HISTORY : Traumatic brain injury. SURGICAL HISTORY : Craniotomy. ENCOUNTER: Subsequent ACUITY: 3 days PAIN SCALE: 5/10 LOCATION: cranial TECHNIQUE: Multiple contiguous axial images were obtained of the head. Using automated exposure control and adj ustment of the mA and/or kV according to patient size, radiation dose was kept as low as reasonably a chievable to obtain optimal diagnostic quality images. FINDINGS: The ventricles are normal in size and configuration. No acute internal hemorrhage is seen. There is a stable area of encephalomalacia seen in the watershed distribution posteriorly on the right. There a re post craniotomy changes on the right. No mass lesion is evident. The appearance of the posterior f alka is unremarkable. The examination is stable compared to the previous dated 05/24/16. CONCLUSION: Stable postoperative changes with a small area of encephalomalacia seen in the watershed distribution posteriorly on the right. No acute intercranial abnormality seen. Lex Guardado MD on May 27, 2016 at 9:50 Board Certified Radiologist. This report was verified electronically.
[2016-05-27 11:43] VITALS: BP 151/93; PULSE 79; RESP 18; TEMP 97.5; O2SAT 97
[2016-05-27] MEDS: LACTATED RINGER'S 1000 ML IV SCH (11:48)
[2016-05-27] MEDS: oxyCODONE/ACETAMINOPHEN 10 MG/325 MG TAB PO PRN (12:54)
[2016-06-27] MEDS ORDERED: HYDR-3583 PO (13:47)
[2016-07-31] MEDS ORDERED: HYDR-3583 PO (16:06)
== END 2016-05-27 13:15 | disposition home or self-care (01) | DRG 941 ==
LOC: HSDI 05-23 13:01 → N03B 05-23 21:15 → N05A 05-24 21:58
PROVIDERS: ADMIT Neurological Surgery; ATTEND Neurological Surgery
PROC: 0NR007Z Replacement of Skull with Autologous Tissue Substitute, Open Approach (ICD-10-PCS; principal; 2016-05-23 14:29)
DX: S06.9X0D Unspecified intracranial injury without loss of consciousness, subsequent encounter (principal); G93.89 Other specified disorders of brain; R63.0 Anorexia; H05.221 Edema of right orbit; F17.210 Nicotine dependence, cigarettes, uncomplicated
CPT/HCPCS: 70450; 71010; 80048; 85025; 85027; 85610; 94150; C1713; J0690; J1170; J1580; J2250; J2270; J2370; J2405; J2710; J3010; J3480; J7120

== ENCOUNTER 2016-07-10 18:46 | Emergency (ER) | payer OTHER ==
[~2016-07-10] VITALS: Ht 180.3 cm; Wt 100.0 kg
[~2016-07-10 18:46] MED LIST changes: +HYDR-3583 PO
[2016-07-10 18:48] VITALS: BP 182/93; PULSE 106; RESP 16; TEMP 98.7; O2SAT 100
--- NOTE | 2016-07-10 18:53 | PD ---
Physical Exam Time Seen by Provider: 18:52 Narrative 21 y/o male here for evaluation of a closed head injury 2-3 days ago- slipped and fell in the bathtub. C/o headache. vital signs reviewed. Seen at triage desk. Awaiting bed placement. Data Data Last Documented VS Vital Signs Date Time Temp Pulse Resp B/P Pulse Ox O2 Delivery O2 Flow Rate FiO2 07/10/16 18:48 98.7 106 16 182/93 100 MDM Medical Record Reviewed: Yes Supervised Visit with FLACO: No Ankit Bowers July 10, 2016 18:53
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
--- NOTE | 2016-07-10 19:50 | RADRPT ---
EXAM DATE/TIME: 07/10/2016 19:37 [facility] COMPARISON: CT BRAIN W/O CONTRAST, May 27, 2016, 8:58. INDICATIONS : Fell and hit left side of head yesterday. Recent right-sided craniotomy.. RADIATION DOSE: 19.0 CTDIvol (mGy) MEDICAL HISTORY : Traumatic brain injury. SURGICAL HISTORY : Craniotomy. ENCOUNTER: Initial ACUITY: 1 day PAIN SCALE: 7/10 LOCATION: Left cranial TECHNIQUE: Multiple contiguous axial images were obtained of the head. Using automated exposure control and adj ustment of the mA and/or kV according to patient size, radiation dose was kept as low as reasonably a chievable to obtain optimal diagnostic quality images. FINDINGS: Postsurgical changes are again noted status post right frontal parietal and temporal craniotomy. The low attenuation area in the left parietal lobe is again visualized and is not significant change d. There is no acute hemorrhage, mass effect or midline shift. The posterior fossa and brainstem yang in unremarkable. There is no evidence of acute infarction. The ventricular system is within normal li mits. CONCLUSION: 1. No acute hemorrhage or mass effect. 2. Recent postsurgical changes and encephalomalacia. Omkar Aguilar MD on July 10, 2016 at 19:46 Board Certified Radiologist. This report was verified electronically.
[2016-07-10] MEDS ORDERED: IBUPROFEN 800 MG TAB PO ONE (20:00)
[2016-07-31] MEDS ORDERED: HYDR-3583 PO (16:06)
== END 2016-07-10 20:42 | disposition home or self-care (01) ==
LOC: NEPK 18:46
DX: R51 Headache (principal); Z72.0 Tobacco use; Z87.820 Personal history of traumatic brain injury; W22.09XA Striking against other stationary object, initial encounter; Y93.E1 Activity, personal bathing and showering
CPT/HCPCS: 70450